=== PATIENT | male | born 1960 | race Caucasian/White ===

== ENCOUNTER 2016-12-02 13:36 | Emergency (ER) | payer MEDICARE ==
[~2016-12-02] VITALS: Ht 175.3 cm; Wt 95.3 kg
[~2016-12-02 13:36] MED LIST: AC325T PO; AMLO5TAB2 PO; ASPI1TAB PO; BACL20TA PO; DCS100C PO; DICL100G18 TOP; DICL100G18 TP; FENT1PAT6 TD; FLUO40CA PO; FNT50TD TD; HYDR-3816 PO; HYDR-690 PO; HYDR-756 PO; HYDR-87 PO; LINA145C PO; LORA1TAB PO; LRZ1T PO; MELO-195 PO; MELO15TA39 PO; METO10TA3 PO; NALO25TA PO; NAPR1TAB25 PO; NF-ESOM40C PO; NORM2DIS3 IV; NYST1POW15 TOP; ONDA4TAB8 PO; ONDA4VIA28 IV; OXC40TCR PO; OXYB5TAB9 PO; OXYC40TA46 PO; OXYC60TA7 PO; PNT40TEC PO; POLY119P5 PO; POLY17PO6 PO; SILD100T PO; SULF1TAB35 PO; TAMS0.4C2 PO; TIZA4CAP PO; TRAM50TA2 PO; TRM50T PO; [UNRECOGNIZED DRUG - CODE] OP; [UNRECOGNIZED DRUG - OTHER] PO
--- OUTSIDE RECORDS SUMMARY | 2016-12-02 13:42 | XMS REPORT ---
Author Author KERRY YATES [facility] [employer] Address Unknown Phone Unavailable Care Team Providers Care Office Services Clerk Name Role Phone KERRY YATES CP Unavailable Allergies No Known Allergies Problems Problem Type Condition Code Onset Dates Condition Status Problem Arthritis M19.90 Active Problem Depression, unspecified depression type F32.9 Active Problem Neck pain M54.2 Active Problem Gastroesophageal reflux disease without esophagitis K21.9 Active Medications No Known Medications Results No Known Results Summary Purpose [employer] Submission
--- OUTSIDE RECORDS SUMMARY | 2016-12-02 13:42 | XMS REPORT ---
Author KERRY Prajapati Organization [employer] Address Unknown Phone Unavailable Care Team Providers Care Truck Trailer Mechanic Name Role Phone KERRY YATES CP Unavailable Allergies No Known Allergies Problems Problem Type Condition Code Onset Dates Condition Status Problem OAB (overactive bladder) N32.81 Active Problem Neck pain M54.2 Active Problem Restless leg syndrome G25.81 Active Problem Gastroesophageal reflux disease without esophagitis K21.9 Active Problem Arthritis M19.90 Active Problem Depression, unspecified depression type F32.9 Active Medications No Known Medications Results No Known Results Summary Purpose [employer] Submission
--- OUTSIDE RECORDS SUMMARY | 2016-12-02 13:43 | XMS REPORT ---
Author KERRY Prajapati Organization [employer] Address Unknown Phone Unavailable Care Team Providers Care Fur Grader Name Role Phone KERRY YATES CP Unavailable [...]
--- OUTSIDE RECORDS SUMMARY | 2016-12-02 13:44 | XMS REPORT ---
Author KERRY Prajapati Organization [employer] Address Unknown Phone Unavailable Care Team Providers Care Log Chain Worker Name Role Phone KERRY YATES CP Unavailable [...]
--- OUTSIDE RECORDS SUMMARY | 2016-12-02 13:44 | XMS REPORT ---
Author Author KERRY YATES [facility] Address [address] [place] [address] Care Team Providers Care Cork Pressing Machine Operator Name Role Phone KERRY YATES Unavailable PROBLEMS Type Condition ICD9-CM Code [id number] Code Onset Dates Condition Status SNOMED Code Problem Restless leg syndrome G25.81 Active 23604669 Problem OAB (overactive bladder) N32.81 Active 607285205 Problem Depression, unspecified depression type F32.9 Active 12587232 Problem Gastroesophageal reflux disease without esophagitis K21.9 Active 813621314 Problem Neck pain M54.2 Active 53222566 Problem Arthritis M19.90 Active 5133490 ALLERGIES Unknown Allergies SOCIAL HISTORY No smoking Hx information available PLAN OF CARE VITAL SIGNS MEDICATIONS Unknown Medications RESULTS No Results PROCEDURES No Known procedures IMMUNIZATIONS No Known Immunizations
--- OUTSIDE RECORDS SUMMARY | 2016-12-02 13:44 | XMS REPORT ---
Author KERRY Prajapati Organization [employer] Address Unknown Phone Unavailable Care Team Providers Care Vp Design Name Role Phone KERRY YATES CP Unavailable [...]
--- OUTSIDE RECORDS SUMMARY | 2016-12-02 13:46 | XMS REPORT ---
Author KERRY Prajapati Organization [employer] Address Unknown Phone Unavailable Care Team Providers Care Pearler Name Role Phone KERRY YATES CP Unavailable [...]
--- OUTSIDE RECORDS SUMMARY | 2016-12-02 13:46 | XMS REPORT | Continuity of Care Document ---
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 HYPERTENSION 05/25/2016 BROOK DONOHUE DIGITAL ARTIST Ot R41.82 ALTERED MENTAL STATUS, UNSPECIFIED 05/25/2016 BROOK DONOHUE APRN Ot Z79.899 OTHER LONG-TERM (CURRENT) DRUG THERAPY Procedures Results Test Result Range Complete blood count (CBC) with automated white blood cell (WBC) differential - 01/07/16 20:25 Blood leukocytes automated count (number/volume) 7.3 10*3/ uL 4.3-11.0 Blood erythrocytes automated count (number/volume) 4.15 10*6 /uL 4.35-5.85 Venous blood hemoglobin measurement (mass/volume) 12.5 g/dL 13.3-17.7 Blood hematocrit (volume fraction) 37 % 40-54 Automated erythrocyte mean corpuscular volume 88 [foz_us] 80-99 Automated erythrocyte mean corpuscular hemoglobin (mass per erythrocyte) 30 pg 25-34 Automated erythrocyte mean corpuscular hemoglobin concentration measurement ( mass/volume) 34 g/dL 32-36 Automated erythrocyte distribution width ratio 13.2 % 10.0-14.5 Automated blood platelet count (count/volume) 234 10*3/uL 130-400 Automated blood platelet mean volume measurement 9.4 [foz_us ] 7.4-10.4 Automated blood neutrophils/100 leukocytes 43 % 42-75 Automated blood lymphocytes/100 leukocytes 47 % 12-44 Blood monocytes/100 leukocytes 7 % 0-12 Automated blood eosinophils/100 leukocytes 3 % 0-10 Automated blood basophils/100 leukocytes 1 % 0-10 Blood neutrophils automated count (number/volume) 3.1 10*3 1.8-7.8 Blood lymphocytes automated count (number/volume) 3.4 10*3 1.0-4.0 Blood monocytes automated count (number/volume) 0.5 10*3 0.0-1.0 Automated eosinophil count 0.2 10*3/uL 0.0-0.3 Automated blood basophil count (count/volume) 0.1 10*3/uL 0.0-0.1 PT panel in platelet poor plasma by coagulation assay - 01/07/16 20:25 Prothrombin time (PT) in platelet poor plasma by coagulation assay 12.6 s 12.2-14.7 INR in platelet poor plasma or blood by coagulation assay 1.0 0.8-1.4 Activated partial thromboplastin time (aPTT) in platelet poor plasma bycoagulation assay - 01/07/16 20:25 Activated partial thromboplastin time (aPTT) in platelet poor plasma bycoagulation assay 29 s 24-35 Comprehensive metabolic panel - 01/07/16 20:25 Serum or plasma sodium measurement (moles/volume) 136 mmol/ L 135-145 Serum or plasma potassium measurement (moles/volume) 4.1 mmol/L 3.6-5.0 Serum or plasma chloride measurement (moles/volume) 102 mmol /L 98-107 Carbon dioxide 29 mmol/L 21-32 Serum or plasma anion gap determination (moles/volume) 5 mmol/L 5-14 Serum or plasma urea nitrogen measurement (mass/volume) 19 mg/dL 7-18 Serum or plasma creatinine measurement (mass/volume) 0.83 mg /dL 0.60-1.30 Serum or plasma urea nitrogen/creatinine mass ratio 23 NRG Serum or plasma creatinine measurement with calculation of estimated glomerular filtration rate > NRG Serum or plasma glucose measurement (mass/volume) 86 mg/dL 70-105 Serum or plasma calcium measurement (mass/volume) 8.5 mg/dL 8.5-10.1 Serum or plasma total bilirubin measurement (mass/volume) 0.3 mg/dL 0.1-1.0 Serum or plasma alkaline phosphatase measurement (enzymatic activity/volume) 32 U/L 40-136 Serum or plasma aspartate aminotransferase measurement (enzymatic activity/ volume) 27 U/L 5-34 Serum or plasma alanine aminotransferase measurement (enzymatic activity/volume ) 37 U/L 0-55 Serum or plasma protein measurement (mass/volume) 6.2 g/dL 6.4-8.2 Serum or plasma albumin measurement (mass/volume) 3.5 g/dL 3.2-4.5 Magnesium - 01/07/16 20:25 Magnesium 2.2 mg/dL 1.8-2.4 Ammonia - 01/07/16 20:25 Ammonia 35 umol/L 11-32 Serum or plasma thyrotropin measurement by detection limit <=0.05 miu/l (units/ volume) - 01/07/16 20:25 Serum or plasma thyrotropin measurement by detection limit <=0.05 miu/l (units/ volume) 1.71 u[iU]/mL 0.35-4.94 Serum or plasma ethanol measurement (mass/volume) - 01/07/16 20:25 Serum or plasma ethanol measurement (mass/volume) < mg/dL <10 Complete urinalysis with reflex to culture - 01/07/16 21:15 Urine color determination YELLOW NRG Urine clarity determination CLEAR NRG Urine pH measurement by test strip 6.5 5 -9 Specific gravity of urine by test strip 1.015 1.016-1.022 Urine protein assay by test strip, semi-quantitative NEGATIVE NEGATIVE Urine glucose detection by automated test strip NEGATIVE NEGATIVE Erythrocytes detection in urine sediment by light microscopy NEGATIVE NEGATIVE Urine ketones detection by automated test strip NEGATIVE NEGATIVE Urine nitrite detection by test strip NEGATIVE NEGATIVE Urine total bilirubin detection by test strip NEGATIVE NEGATIVE Urine urobilinogen measurement by automated test strip (mass/volume) 4 mg/dL NORMAL Urine leukocyte esterase detection by dipstick 1+ NEGATIVE Automated urine sediment erythrocyte count by microscopy (number/high power field) NONE NRG Automated urine sediment leukocyte count by microscopy (number/high power field ) [HPF] NRG Bacteria detection in urine sediment by light microscopy NEGATIVE NRG Crystals detection in urine sediment by light microscopy NONE NRG Casts detection in urine sediment by light microscopy NONE NRG Mucus detection in urine sediment by light microscopy SMALL NRG Complete urinalysis with reflex to culture NO NRG Urine drug screening test - 01/07/16 21:15 Urine acetaminophen detection by screening method NEGATIVE NEGATIVE Urine phencyclidine detection by screening method NEGATIVE NEGATIVE Urine benzodiazepines detection by screening method POSITIVE NEGATIVE Urine cocaine detection NEGATIVE NEGATIVE Urine amphetamines detection by screening method NEGATIVE NEGATIVE Urine methamphetamine detection by screening method NEGATIVE NEGATIVE Urine cannabinoids detection by screening method NEGATIVE NEGATIVE Urine opiates detection by screening method POSITIVE NEGATIVE Urine barbiturates detection NEGATIVE NEGATIVE Screening urine tricyclic antidepressants detection NEGATIVE NEGATIVE Urine methadone detection by screening method NEGATIVE NEGATIVE Complete blood count (CBC) with automated white blood cell (WBC) differential - 01/08/16 04:40 Blood leukocytes automated count (number/volume) 6.6 10*3/ uL 4.3-11.0 Blood erythrocytes automated count (number/volume) 4.09 10*6 /uL 4.35-5.85 Venous blood hemoglobin measurement (mass/volume) 12.5 g/dL 13.3-17.7 Blood hematocrit (volume fraction) 36 % 40-54 Automated erythrocyte mean corpuscular volume 88 [foz_us] 80-99 Automated erythrocyte mean corpuscular hemoglobin (mass per erythrocyte) 31 pg 25-34 Automated erythrocyte mean corpuscular hemoglobin concentration measurement ( mass/volume) 35 g/dL 32-36 Automated erythrocyte distribution width ratio 12.9 % 10.0-14.5 Automated blood platelet count (count/volume) 216 10*3/uL 130-400 Automated blood platelet mean volume measurement 9.6 [foz_us ] 7.4-10.4 Automated blood neutrophils/100 leukocytes 43 % 42-75 Automated blood lymphocytes/100 leukocytes 47 % 12-44 Blood monocytes/100 leukocytes 7 % 0-12 Automated blood eosinophils/100 leukocytes 3 % 0-10 Automated blood basophils/100 leukocytes 1 % 0-10 Blood neutrophils automated count (number/volume) 2.8 10*3 1.8-7.8 Blood lymphocytes automated count (number/volume) 3.1 10*3 1.0-4.0 Blood monocytes automated count (number/volume) 0.5 10*3 0.0-1.0 Automated eosinophil count 0.2 10*3/uL 0.0-0.3 Automated blood basophil count (count/volume) 0.1 10*3/uL 0.0-0.1 Comprehensive metabolic panel - 01/08/16 04:40 Serum or plasma sodium measurement (moles/volume) 140 mmol/ L 135-145 Serum or plasma potassium measurement (moles/volume) 3.8 mmol/L 3.6-5.0 Serum or plasma chloride measurement (moles/volume) 105 mmol /L 98-107 Carbon dioxide 28 mmol/L 21-32 Serum or plasma anion gap determination (moles/volume) 7 mmol/L 5-14 Serum or plasma urea nitrogen measurement (mass/volume) 13 mg/dL 7-18 Serum or plasma creatinine measurement (mass/volume) 0.83 mg /dL 0.60-1.30 Serum or plasma urea nitrogen/creatinine mass ratio 16 NRG Serum or plasma creatinine measurement with calculation of estimated glomerular filtration rate > NRG Serum or plasma glucose measurement (mass/volume) 94 mg/dL 70-105 Serum or plasma calcium measurement (mass/volume) 9.1 mg/dL 8.5-10.1 Serum or plasma total bilirubin measurement (mass/volume) 0.4 mg/dL 0.1-1.0 Serum or plasma alkaline phosphatase measurement (enzymatic activity/volume) 30 U/L 40-136 Serum or plasma aspartate aminotransferase measurement (enzymatic activity/ volume) 30 U/L 5-34 Serum or plasma alanine aminotransferase measurement (enzymatic activity/volume ) 39 U/L 0-55 Serum or plasma protein measurement (mass/volume) 5.9 g/dL 6.4-8.2 Serum or plasma albumin measurement (mass/volume) 3.3 g/dL 3.2-4.5 Urine drug screening test - 01/21/16 09:30 Urine acetaminophen detection by screening method NEGATIVE NEGATIVE Urine phencyclidine detection by screening method NEGATIVE NEGATIVE Urine benzodiazepines detection by screening method POSITIVE NEGATIVE Urine cocaine detection NEGATIVE NEGATIVE Urine amphetamines detection by screening method NEGATIVE NEGATIVE Urine methamphetamine detection by screening method NEGATIVE NEGATIVE Urine cannabinoids detection by screening method NEGATIVE NEGATIVE Urine opiates detection by screening method POSITIVE NEGATIVE Urine barbiturates detection NEGATIVE NEGATIVE Screening urine tricyclic antidepressants detection NEGATIVE NEGATIVE Urine methadone detection by screening method NEGATIVE NEGATIVE Complete urinalysis with reflex to culture - 01/21/16 09:30 Urine color determination FIONA NRG Urine clarity determination CLEAR NRG Urine pH measurement by test strip 6 5- 9 Specific gravity of urine by test strip 1.020 1.016-1.022 Urine protein assay by test strip, semi-quantitative 2+ NEGATIVE Urine glucose detection by automated test strip NEGATIVE NEGATIVE Erythrocytes detection in urine sediment by light microscopy 2+ NEGATIVE Urine ketones detection by automated test strip NEGATIVE NEGATIVE Urine nitrite detection by test strip POSITIVE NEGATIVE Urine total bilirubin detection by test strip 2+ NEGATIVE Urine urobilinogen measurement by automated test strip (mass/volume) 4 mg/dL NORMAL Urine leukocyte esterase detection by dipstick 2+ NEGATIVE Automated urine sediment erythrocyte count by microscopy (number/high power field) NONE NRG Automated urine sediment leukocyte count by microscopy (number/high power field ) [HPF] NRG Bacteria detection in urine sediment by light microscopy FEW NRG Crystals detection in urine sediment by light microscopy PRESENT NRG Casts detection in urine sediment by light microscopy NONE NRG Mucus detection in urine sediment by light microscopy LARGE NRG Complete urinalysis with reflex to culture YES NRG Amorphous sediment detection in urine sediment by light microscopy MOD CLEO URATES NRG Complete blood count (CBC) with automated white blood cell (WBC) differential - 01/21/16 09:30 Blood leukocytes automated count (number/volume) 11.4 10*3/ uL 4.3-11.0 Blood erythrocytes automated count (number/volume) 4.73 10*6 /uL 4.35-5.85 Venous blood hemoglobin measurement (mass/volume) 14.6 g/dL 13.3-17.7 Blood hematocrit (volume fraction) 42 % 40-54 Automated erythrocyte mean corpuscular volume 88 [foz_us] 80-99 Automated erythrocyte mean corpuscular hemoglobin (mass per erythrocyte) 31 pg 25-34 Automated erythrocyte mean corpuscular hemoglobin concentration measurement ( mass/volume) 35 g/dL 32-36 Automated erythrocyte distribution width ratio 12.7 % 10.0-14.5 Automated blood platelet count (count/volume) 270 10*3/uL 130-400 Automated blood platelet mean volume measurement 9.9 [foz_us ] 7.4-10.4 Automated blood neutrophils/100 leukocytes 73 % 42-75 Automated blood lymphocytes/100 leukocytes 17 % 12-44 Blood monocytes/100 leukocytes 8 % 0-12 Automated blood eosinophils/100 leukocytes 2 % 0-10 Automated blood basophils/100 leukocytes 0 % 0-10 Blood neutrophils automated count (number/volume) 8.4 10*3 1.8-7.8 Blood lymphocytes automated count (number/volume) 1.9 10*3 1.0-4.0 Blood monocytes automated count (number/volume) 0.9 10*3 0.0-1.0 Automated eosinophil count 0.2 10*3/uL 0.0-0.3 Automated blood basophil count (count/volume) 0.0 10*3/uL 0.0-0.1 Comprehensive metabolic panel - 01/21/16 09:30 Serum or plasma sodium measurement (moles/volume) 140 mmol/ L 135-145 Serum or plasma potassium measurement (moles/volume) 3.5 mmol/L 3.6-5.0 Serum or plasma chloride measurement (moles/volume) 100 mmol /L 98-107 Carbon dioxide 30 mmol/L 21-32 Serum or plasma anion gap determination (moles/volume) 10 mmol/L 5-14 Serum or plasma urea nitrogen measurement (mass/volume) 11 mg/dL 7-18 Serum or plasma creatinine measurement (mass/volume) 0.82 mg /dL 0.60-1.30 Serum or plasma urea nitrogen/creatinine mass ratio 13 NRG Serum or plasma creatinine measurement with calculation of estimated glomerular filtration rate > NRG Serum or plasma glucose measurement (mass/volume) 97 mg/dL 70-105 Serum or plasma calcium measurement (mass/volume) 9.6 mg/dL 8.5-10.1 Serum or plasma total bilirubin measurement (mass/volume) 0.6 mg/dL 0.1-1.0 Serum or plasma alkaline phosphatase measurement (enzymatic activity/volume) 41 U/L 40-136 Serum or plasma aspartate aminotransferase measurement (enzymatic activity/ volume) 34 U/L 5-34 Serum or plasma alanine aminotransferase measurement (enzymatic activity/volume ) 45 U/L 0-55 Serum or plasma protein measurement (mass/volume) 6.8 g/dL 6.4-8.2 Serum or plasma albumin measurement (mass/volume) 3.7 g/dL 3.2-4.5 Magnesium - 01/21/16 09:30 Magnesium 1.9 mg/dL 1.8-2.4 Serum or plasma salicylates measurement (mass/volume) - 01/21/16 09:30 Serum or plasma salicylates measurement (mass/volume) < mg/ dL 5.0-20.0 Serum or plasma acetaminophen measurement (mass/volume) - 01/21/16 09:30 Serum or plasma acetaminophen measurement (mass/volume) < ug /mL 10-30 Serum or plasma ethanol measurement (mass/volume) - 01/21/16 09:30 Serum or plasma ethanol measurement (mass/volume) < mg/dL <10 Bacterial urine culture - 01/21/16 09:30 Bacterial urine culture [id number] NRG COLONY COUNT 10,000/ML - 100,000/ML NRG Arterial blood gas measurement - 01/21/16 09:35 Blood pCO2 42 mm[Hg] 35-45 Blood pO2 106 mm[Hg] 79-93 Arterial blood bicarbonate measurement (moles/volume) 29 mmol/L 23-27 Arterial blood base excess by calculation 4.6 mmol/L -2.5-2.5 Arterial blood oxygen saturation measurement 98 % 94-100 * Inhaled oxygen flow rate N/A NRG Arterial blood pH measurement with patient temperature correction 7.46 7.37-7.43 Arterial blood carbon dioxide, total measurement (moles/volume) 30.3 mmol/L 21.0-31.0 Body site RIGHT RADIAL NRG Assessment of wrist artery patency prior to arterial puncture POSITIVE NRG Setting of ventilation mode NO NRG Measurement of body temperature 98.3 NRG Blood lactic acid measurement (moles/volume) - 01/21/16 10:30 Blood lactic acid measurement (moles/volume) 1.2 mmol/L 0.5-2.0 Bacterial blood culture - 01/21/16 10:30 Bacterial blood culture NG NRG Bacterial blood culture - 01/21/16 11:39 Bacterial blood culture NG NRG Methicillin resistant Staphylococcus aureus (MRSA) screening culture - 14:26 Methicillin resistant Staphylococcus aureus (MRSA) screening culture NEG NRG Capillary blood glucose measurement by glucometer (mass/volume) - 01/21/16 22: 09 Capillary blood glucose measurement by glucometer (mass/volume) 96 mg/dL 70-110 Complete blood count (CBC) with automated white blood cell (WBC) differential - 01/22/16 03:55 Blood leukocytes automated count (number/volume) 8.7 10*3/ uL 4.3-11.0 Blood erythrocytes automated count (number/volume) 3.90 10*6 /uL 4.35-5.85 Venous blood hemoglobin measurement (mass/volume) 11.9 g/dL 13.3-17.7 Blood hematocrit (volume fraction) 35 % 40-54 Automated erythrocyte mean corpuscular volume 89 [foz_us] 80-99 Automated erythrocyte mean corpuscular hemoglobin (mass per erythrocyte) 31 pg 25-34 Automated erythrocyte mean corpuscular hemoglobin concentration measurement ( mass/volume) 35 g/dL 32-36 Automated erythrocyte distribution width ratio 12.5 % 10.0-14.5 Automated blood platelet count (count/volume) 221 10*3/uL 130-400 Automated blood platelet mean volume measurement 9.8 [foz_us ] 7.4-10.4 Automated blood neutrophils/100 leukocytes 56 % 42-75 Automated blood lymphocytes/100 leukocytes 34 % 12-44 Blood monocytes/100 leukocytes 8 % 0-12 Automated blood eosinophils/100 leukocytes 2 % 0-10 Automated blood basophils/100 leukocytes 1 % 0-10 Blood neutrophils automated count (number/volume) 4.8 10*3 1.8-7.8 Blood lymphocytes automated count (number/volume) 2.9 10*3 1.0-4.0 Blood monocytes automated count (number/volume) 0.7 10*3 0.0-1.0 Automated eosinophil count 0.1 10*3/uL 0.0-0.3 Automated blood basophil count (count/volume) 0.1 10*3/uL 0.0-0.1 Comprehensive metabolic panel - 01/22/16 03:55 Serum or plasma sodium measurement (moles/volume) 140 mmol/ L 135-145 Serum or plasma potassium measurement (moles/volume) 3.5 mmol/L 3.6-5.0 Serum or plasma chloride measurement (moles/volume) 106 mmol /L 98-107 Carbon dioxide 24 mmol/L 21-32 Serum or plasma anion gap determination (moles/volume) 10 mmol/L 5-14 Serum or plasma urea nitrogen measurement (mass/volume) 13 mg/dL 7-18 Serum or plasma creatinine measurement (mass/volume) 0.63 mg /dL 0.60-1.30 Serum or plasma urea nitrogen/creatinine mass ratio 21 NRG Serum or plasma creatinine measurement with calculation of estimated glomerular filtration rate > NRG Serum or plasma glucose measurement (mass/volume) 91 mg/dL 70-105 Serum or plasma calcium measurement (mass/volume) 8.3 mg/dL 8.5-10.1 Serum or plasma total bilirubin measurement (mass/volume) 0.6 mg/dL 0.1-1.0 Serum or plasma alkaline phosphatase measurement (enzymatic activity/volume) 30 U/L 40-136 Serum or plasma aspartate aminotransferase measurement (enzymatic activity/ volume) 30 U/L 5-34 Serum or plasma alanine aminotransferase measurement (enzymatic activity/volume ) 37 U/L 0-55 Serum or plasma protein measurement (mass/volume) 5.3 g/dL 6.4-8.2 Serum or plasma albumin measurement (mass/volume) 2.8 g/dL 3.2-4.5 Complete blood count (CBC) with automated white blood cell (WBC) differential - 04/13/16 20:20 Blood leukocytes automated count (number/volume) 7.6 10*3/ uL 4.3-11.0 Blood erythrocytes automated count (number/volume) 4.38 10*6 /uL 4.35-5.85 Venous blood hemoglobin measurement (mass/volume) 13.5 g/dL 13.3-17.7 Blood hematocrit (volume fraction) 39 % 40-54 Automated erythrocyte mean corpuscular volume 88 [foz_us] 80-99 Automated erythrocyte mean corpuscular hemoglobin (mass per erythrocyte) 31 pg 25-34 Automated erythrocyte mean corpuscular hemoglobin concentration measurement ( mass/volume) 35 g/dL 32-36 Automated erythrocyte distribution width ratio 12.8 % 10.0-14.5 Automated blood platelet count (count/volume) 252 10*3/uL 130-400 Automated blood platelet mean volume measurement 9.3 [foz_us ] 7.4-10.4 Automated blood neutrophils/100 leukocytes 50 % 42-75 Automated blood lymphocytes/100 leukocytes 40 % 12-44 Blood monocytes/100 leukocytes 7 % 0-12 Automated blood eosinophils/100 leukocytes 2 % 0-10 Automated blood basophils/100 leukocytes 1 % 0-10 Blood neutrophils automated count (number/volume) 3.8 10*3 1.8-7.8 Blood lymphocytes automated count (number/volume) 3.1 10*3 1.0-4.0 Blood monocytes automated count (number/volume) 0.5 10*3 0.0-1.0 Automated eosinophil count 0.2 10*3/uL 0.0-0.3 Automated blood basophil count (count/volume) 0.1 10*3/uL 0.0-0.1 PT panel in platelet poor plasma by coagulation assay - 04/13/16 20:20 Prothrombin time (PT) in platelet poor plasma by coagulation assay 12.6 s 12.2-14.7 INR in platelet poor plasma or blood by coagulation assay 1.0 0.8-1.4 Activated partial thromboplastin time (aPTT) in platelet poor plasma bycoagulation assay - 04/13/16 20:20 Activated partial thromboplastin time (aPTT) in platelet poor plasma bycoagulation assay 28 s 24-35 Comprehensive metabolic panel - 04/13/16 20:20 Serum or plasma sodium measurement (moles/volume) 143 mmol/ L 135-145 Serum or plasma potassium measurement (moles/volume) 4.0 mmol/L 3.6-5.0 Serum or plasma chloride measurement (moles/volume) 106 mmol /L 98-107 Carbon dioxide 27 mmol/L 21-32 Serum or plasma anion gap determination (moles/volume) 10 mmol/L 5-14 Serum or plasma urea nitrogen measurement (mass/volume) 14 mg/dL 7-18 Serum or plasma creatinine measurement (mass/volume) 0.79 mg /dL 0.60-1.30 Serum or plasma urea nitrogen/creatinine mass ratio 18 NRG Serum or plasma creatinine measurement with calculation of estimated glomerular filtration rate > NRG Serum or plasma glucose measurement (mass/volume) 85 mg/dL 70-105 Serum or plasma calcium measurement (mass/volume) 8.6 mg/dL 8.5-10.1 Serum or plasma total bilirubin measurement (mass/volume) 0.3 mg/dL 0.1-1.0 Serum or plasma alkaline phosphatase measurement (enzymatic activity/volume) 31 U/L 40-136 Serum or plasma aspartate aminotransferase measurement (enzymatic activity/ volume) 23 U/L 5-34 Serum or plasma alanine aminotransferase measurement (enzymatic activity/volume ) 30 U/L 0-55 Serum or plasma protein measurement (mass/volume) 6.4 g/dL 6.4-8.2 Serum or plasma albumin measurement (mass/volume) 3.6 g/dL 3.2-4.5 Magnesium - 04/13/16 20:20 Magnesium 2.1 mg/dL 1.8-2.4 Serum or plasma amylase measurement (enzymatic activity/volume) - 04/13/16 20: 20 Serum or plasma amylase measurement (enzymatic activity/volume) 61 U/L 25-125 Lipase - 04/13/16 20:20 Lipase 25 U/L 8-78 Serum or plasma thyrotropin measurement by detection limit <=0.05 miu/l (units/ volume) - 04/13/16 20:20 Serum or plasma thyrotropin measurement by detection limit <=0.05 miu/l (units/ volume) 1.14 u[iU]/mL 0.35-4.94 Serum or plasma ethanol measurement (mass/volume) - 04/13/16 20:20 Serum or plasma ethanol measurement (mass/volume) < mg/dL <10 Complete urinalysis with reflex to culture - 04/13/16 20:30 Urine color determination YELLOW NRG Urine clarity determination CLEAR NRG Urine pH measurement by test strip 6 5- 9 Specific gravity of urine by test strip 1.015 1.016-1.022 Urine protein assay by test strip, semi-quantitative NEGATIVE NEGATIVE Urine glucose detection by automated test strip NEGATIVE NEGATIVE Erythrocytes detection in urine sediment by light microscopy NEGATIVE NEGATIVE Urine ketones detection by automated test strip NEGATIVE NEGATIVE Urine nitrite detection by test strip NEGATIVE NEGATIVE Urine total bilirubin detection by test strip NEGATIVE NEGATIVE Urine urobilinogen measurement by automated test strip (mass/volume) 1 mg/dL NORMAL Urine leukocyte esterase detection by dipstick 1+ NEGATIVE Automated urine sediment erythrocyte count by microscopy (number/high power field) NONE NRG Automated urine sediment leukocyte count by microscopy (number/high power field ) [HPF] NRG Bacteria detection in urine sediment by light microscopy NONE NRG Crystals detection in urine sediment by light microscopy NONE NRG Casts detection in urine sediment by light microscopy NONE NRG Mucus detection in urine sediment by light microscopy NEGATIVE NRG Complete urinalysis with reflex to culture NO NRG Urine drug screening test - 04/13/16 20:30 Urine phencyclidine detection by screening method NEGATIVE NEGATIVE Urine benzodiazepines detection by screening method POSITIVE NEGATIVE Urine cocaine detection NEGATIVE NEGATIVE Urine amphetamines detection by screening method NEGATIVE NEGATIVE Urine methamphetamine detection by screening method NEGATIVE NEGATIVE Urine cannabinoids detection by screening method NEGATIVE NEGATIVE Urine opiates detection by screening method POSITIVE NEGATIVE Urine barbiturates detection NEGATIVE NEGATIVE Screening urine tricyclic antidepressants detection NEGATIVE NEGATIVE Urine methadone detection by screening method NEGATIVE NEGATIVE Urine oxycodone detection POSITIVE NEGATIVE Urine propoxyphene detection NEGATIVE NEGATIVE Complete blood count (CBC) with automated white blood cell (WBC) differential - 05/25/16 19:25 Blood leukocytes automated count (number/volume) 7.7 10*3/ uL 4.3-11.0 Blood erythrocytes automated count (number/volume) 4.49 10*6 /uL 4.35-5.85 Venous blood hemoglobin measurement (mass/volume) 13.6 g/dL 13.3-17.7 Blood hematocrit (volume fraction) 40 % 40-54 Automated erythrocyte mean corpuscular volume 90 [foz_us] 80-99 Automated erythrocyte mean corpuscular hemoglobin (mass per erythrocyte) 30 pg 25-34 Automated erythrocyte mean corpuscular hemoglobin concentration measurement ( mass/volume) 34 g/dL 32-36 Automated erythrocyte distribution width ratio 13.8 % 10.0-14.5 Automated blood platelet count (count/volume) 220 10*3/uL 130-400 Automated blood platelet mean volume measurement 9.6 [foz_us ] 7.4-10.4 Automated blood neutrophils/100 leukocytes 61 % 42-75 Automated blood lymphocytes/100 leukocytes 30 % 12-44 Blood monocytes/100 leukocytes 6 % 0-12 Automated blood eosinophils/100 leukocytes 2 % 0-10 Automated blood basophils/100 leukocytes 1 % 0-10 Blood neutrophils automated count (number/volume) 4.7 10*3 1.8-7.8 Blood lymphocytes automated count (number/volume) 2.3 10*3 1.0-4.0 Blood monocytes automated count (number/volume) 0.5 10*3 0.0-1.0 Automated eosinophil count 0.1 10*3/uL 0.0-0.3 Automated blood basophil count (count/volume) 0.1 10*3/uL 0.0-0.1 PT panel in platelet poor plasma by coagulation assay - 05/25/16 19:25 Prothrombin time (PT) in platelet poor plasma by coagulation assay 12.9 s 12.2-14.7 INR in platelet poor plasma or blood by coagulation assay 1.0 0.8-1.4 Comprehensive metabolic panel - 05/25/16 19:25 Serum or plasma sodium measurement (moles/volume) 137 mmol/ L 135-145 Serum or plasma potassium measurement (moles/volume) 4.0 mmol/L 3.6-5.0 Serum or plasma chloride measurement (moles/volume) 104 mmol /L 98-107 Carbon dioxide 26 mmol/L 21-32 Serum or plasma anion gap determination (moles/volume) 7 mmol/L 5-14 Serum or plasma urea nitrogen measurement (mass/volume) 15 mg/dL 7-18 Serum or plasma creatinine measurement (mass/volume) 0.74 mg /dL 0.60-1.30 Serum or plasma urea nitrogen/creatinine mass ratio 20 NRG Serum or plasma creatinine measurement with calculation of estimated glomerular filtration rate > NRG Serum or plasma glucose measurement (mass/volume) 76 mg/dL 70-105 Serum or plasma calcium measurement (mass/volume) 8.6 mg/dL 8.5-10.1 Serum or plasma total bilirubin measurement (mass/volume) 0.4 mg/dL 0.1-1.0 Serum or plasma alkaline phosphatase measurement (enzymatic activity/volume) 34 U/L 40-136 Serum or plasma aspartate aminotransferase measurement (enzymatic activity/ volume) 28 U/L 5-34 Serum or plasma alanine aminotransferase measurement (enzymatic activity/volume ) 31 U/L 0-55 Serum or plasma protein measurement (mass/volume) 6.2 g/dL 6.4-8.2 Serum or plasma albumin measurement (mass/volume) 3.6 g/dL 3.2-4.5 Ammonia - 05/25/16 19:25 Ammonia 35 umol/L 11-32 Serum or plasma salicylates measurement (mass/volume) - 05/25/16 19:25 Serum or plasma salicylates measurement (mass/volume) < mg/ dL 5.0-20.0 Serum or plasma acetaminophen measurement (mass/volume) - 05/25/16 19:25 Serum or plasma acetaminophen measurement (mass/volume) < ug /mL 10-30 Serum or plasma ethanol measurement (mass/volume) - 05/25/16 19:25 Serum or plasma ethanol measurement (mass/volume) < mg/dL <10 Blood lactic acid measurement (moles/volume) - 05/25/16 19:36 Blood lactic acid measurement (moles/volume) 0.8 mmol/L 0.5-2.0 Urine drug screening test - 05/25/16 21:30 Urine phencyclidine detection by screening method NEGATIVE NEGATIVE Urine benzodiazepines detection by screening method POSITIVE NEGATIVE Urine cocaine detection NEGATIVE NEGATIVE Urine amphetamines detection by screening method NEGATIVE NEGATIVE Urine methamphetamine detection by screening method NEGATIVE NEGATIVE Urine cannabinoids detection by screening method NEGATIVE NEGATIVE Urine opiates detection by screening method NEGATIVE NEGATIVE Urine barbiturates detection NEGATIVE NEGATIVE Screening urine tricyclic antidepressants detection NEGATIVE NEGATIVE Urine methadone detection by screening method NEGATIVE NEGATIVE Urine oxycodone detection POSITIVE NEGATIVE Urine propoxyphene detection NEGATIVE NEGATIVE Complete urinalysis with reflex to culture - 05/25/16 21:30 Urine color determination YELLOW NRG Urine clarity determination CLEAR NRG Urine pH measurement by test strip 7 5- 9 Specific gravity of urine by test strip 1.010 1.016-1.022 Urine protein assay by test strip, semi-quantitative NEGATIVE NEGATIVE Urine glucose detection by automated test strip NEGATIVE NEGATIVE Erythrocytes detection in urine sediment by light microscopy NEGATIVE NEGATIVE Urine ketones detection by automated test strip NEGATIVE NEGATIVE Urine nitrite detection by test strip NEGATIVE NEGATIVE Urine total bilirubin detection by test strip NEGATIVE NEGATIVE Urine urobilinogen measurement by automated test strip (mass/volume) 1 mg/dL NORMAL Urine leukocyte esterase detection by dipstick NEGATIVE NEGATIVE Automated urine sediment erythrocyte count by microscopy (number/high power field) NONE NRG Automated urine sediment leukocyte count by microscopy (number/high power field ) NONE NRG Bacteria detection in urine sediment by light microscopy NONE NRG Squamous epithelial cells detection in urine sediment by light microscopy RARE NRG Crystals detection in urine sediment by light microscopy NONE NRG Casts detection in urine sediment by light microscopy NONE NRG Mucus detection in urine sediment by light microscopy NEGATIVE NRG Complete urinalysis with reflex to culture NO NRG Encounters ACCT No. Visit Date/Time Discharge Status Pt. Type Provider Facility Loc./Unit Complaint [id number] 05/25/2016 18:37:00 2015 22:18:00 DIS Emergency BROOK DONOHUE DIGITAL ARTIST [facility] CONFUSED [id number] 04/13/2016 19:58:00 2015 23:09:00 DIS Emergency HAN DO, PAKO K [facility] ER KIDNEY PAIN/DIFF CONTROLLING BLADDER [id number] 01/21/2016 11:08:00 2015 14:40:00 DIS Inpatient ANGEL ROJAS, SCOTT Geller [facility] ICU AMS UTI ADVERSE EFFECTS OF NARCOTICS [id number] 01/07/2016 22:33:00 2015 12:55:00 DIS Inpatient MILAN ROJAS, KERRY Connor [facility] [address] AMS,GENERALIZED WEAKNESS [id number] 10/28/2015 17:42:00 2015 19:45:00 DIS Emergency STEFFI ROJAS, LUIZA Mckeon [facility] [id number] 08/24/2015 08:00:00 2015 17:10:00 DIS Inpatient FLASH ISBELL MD Via [address] ACUTE CVA [id number] 08/10/2015 15:47:00 2015 18:26:00 DIS Emergency DOLORES ROJAS, JOSE LUIS Arguello [facility] [id number] 08/07/2015 17:35:00 2015 10:50:00 DIS Inpatient FLASH ISBELL MD Via [address] [id number] 07/19/2015 14:38:00 2015 17:21:00 DIS Emergency BRANDON CANSECO [facility] [id number] 07/05/2015 11:10:00 2015 10:12:00 DIS Inpatient KRISSY CERVANTES MD Via [facility] [id number] 07/01/2015 18:20:00 2015 11:10:00 DIS Inpatient FLASH ISBELL MD Via [address] [id number] 03/05/2015 14:10:00 2014 17:25:00 DIS Emergency BROOK DONOHUE APRN [facility] [id number] 12/21/2014 09:38:00 2014 12:00:00 DIS Outpatient DAKOTA KIM MD [facility] WOUNDCARE [id number] 11/22/2014 15:00:00 2014 09:30:00 DIS Inpatient FLASH ISBELL MD [facility] SURGICAL UPPER GI BLEED [id number] 11/22/2014 03:40:00 2014 12:10:00 DIS Inpatient FLASH ISBELL MD [facility] ICU [id number] 05/17/2014 13:35:00 2013 14:33:00 DIS Outpatient FLASH ISBELL MD [facility] REHAB [id number] 03/22/2014 10:16:00 2013 23:59:59 CLS Outpatient FLASH ISBELL MD [facility] RAD [id number] 03/07/2014 13:05:00 2013 23:59:59 CLS Outpatient FLASH ISBELL MD [facility] RAD [id number] 12/14/2013 08:20:00 2013 11:18:00 DIS Outpatient ARNIE FIELD MD Via [facility] [id number] 12/13/2013 07:34:00 2013 23:59:59 CLS Outpatient ARNIE FIELD MD [facility] PREOP [id number] 11/30/2013 08:21:00 2013 12:15:00 DIS Outpatient ARNIE FIELD MD Via [facility] [id number] 11/29/2013 07:22:00 2013 23:59:59 CLS Outpatient ARNIE FIELD MD [facility] PREOP [id number] 11/07/2013 07:57:00 2013 23:59:59 CLS Outpatient FLASH ISBELL MD [facility] RAD [id number] 04/18/2013 11:50:00 2012 10:52:00 DIS Outpatient FLASH ISBELL MD [facility] WOUNDC[facility] [id number] 11/18/2012 10:58:00 2012 23:59:59 CLS Outpatient FLASH ISBELL MD [facility] [id number] 03/21/2015 16:28:00 ACT Inpatient FLASH ISBELL MD Via [address] [id number] 02/26/2015 08:58:00 Document Registration [id number] 02/26/2015 08:58:00 Document Registration [id number] 02/26/2015 08:58:00 Document Registration [id number] 07/06/2012 11:19:00 Document Registration [id number] 05/17/2012 10:32:00 Document Registration [id number] 06/16/2011 15:47:00 Document Registration [id number] 05/05/2011 15:19:00 Document Registration [id number] 04/11/2010 07:53:00 Document Registration
--- OUTSIDE RECORDS SUMMARY | 2016-12-02 13:47 | XMS REPORT ---
Author Author KERRY YATES [facility] eClinicalWorks Address Unknown Phone Unavailable Care Team Providers Care Sole Cementer Name Role Phone KERRY YATES CP Unavailable Allergies No Known Allergies Problems Problem Type Condition Code Onset Dates Condition Status Problem Arthritis M19.90 Active Problem Depression, unspecified depression type F32.9 Active Problem Neck pain M54.2 Active Problem Gastroesophageal reflux disease without esophagitis K21.9 Active Medications No Known Medications Results No Known Results Summary Purpose eClinicalWorks Submission
--- OUTSIDE RECORDS SUMMARY | 2016-12-02 13:47 | XMS REPORT ---
Author Author KERRY YATES [facility] eClinicalWorks Address Unknown Phone Unavailable Care Team Providers Care Real Estate Leasing Agent Name Role Phone KERRY YATES CP Unavailable Allergies No Known Allergies Problems Problem Type Condition Code Onset Dates Condition Status Problem Arthritis M19.90 Active Problem Depression, unspecified depression type F32.9 Active Problem Neck pain M54.2 Active Problem Gastroesophageal reflux disease without esophagitis K21.9 Active Medications No Known Medications Results No Known Results Summary Purpose eClinicalWorks Submission
--- OUTSIDE RECORDS SUMMARY | 2016-12-02 13:47 | XMS REPORT ---
Author KERRY Prajapati [facility] eClinicalWorks Address Unknown Phone Unavailable Care Team Providers Care Flux Tube Attendant Name Role Phone KERRY YATES CP Unavailable Allergies, Adverse Reactions, Alerts Substance Reaction Event Type Valium Info Not Available Drug Allergy Problems Problem Type Condition Code Onset Dates Condition Status Assessment Encounter for immunization Z23 Active Assessment OAB (overactive bladder) N32.81 Active Assessment Stopped smoking with greater than 25 pack year history Z87.891 Active Problem OAB (overactive bladder) N32.81 Active Problem Neck pain M54.2 Active Problem Restless leg syndrome G25.81 Active Problem Gastroesophageal reflux disease without esophagitis K21.9 Active Assessment Neck pain M54.2 Active Problem Arthritis M19.90 Active Problem Depression, unspecified depression type F32.9 Active Medications Medication Code System Code Instructions Start Date End Date Status Dosage Baclofen [facility] [address]-54 20 mg Orally 4 times a day 1 tablet with food or milk Mirapex [facility] [address]-40 0.25 MG Orally Once a day, hs Feb 24, 2016 1 tablet Fluoxetine HCl [facility] [address]-56 40 MG Orally Once a day 1 capsule in the morning Oxybutynin Chloride [facility] 11239138531 5 MG TAKE 1 TABLET BY MOUTH THREE TIMES DAILY [place] [facility] [address]-74 7.5-325 MG Orally every 8 hrs Jan 08, 2016 1 tablet as needed Nexium [facility] [address]-77 40 mg Orally Once a day 1 capsule Linzess [facility] 84289625957 145 MCG TAKE 1 CAPSULE BY MOUTH IN THE MORNING Lorazepam [facility] [address]-29 0.5 MG Orally 3 times a day NEEDED Jan 08, 2016 1 tablet Meloxicam [facility] 09336809438 15 MG TAKE 1 TABLET BY MOUTH ONCE DAILY MiraLax [facility] [address]-34 17 gm/dose Orally Once a day 17 grams mixed in 8 oz of water or juice Movantik [facility] [address]-78 25 MG Orally Once a day 1 tablet in the morning OxyContin [facility] [address]-19 60 mg Orally 2 times a day Jan 08, 2016 1 tablet Docusate Sodium [facility] [address]-37 100 MG Orally Once a day NEEDED CONSTIPATION 1 capsule as needed Procedures Procedure Coding System Code Date Office Visit, Est Pt., Level 3 CPT-4 07581 Apr 20, 2016 PPV23 (PNEUMOVAX) CPT-4 38079 Apr 20, 2016 [facility] VISIT ESTABLISHED PATIENT CPT-4 G0467 Apr 20, 2016 SINGLE IMMUNIZATION ADMIN CPT-4 24635 Apr 20, 2016 Vital Signs Date/Time: Apr 20, 2016 Cardiac Monitoring Heart Rate 72 bpm Weight 196 lbs Height 69 in BMI 28.94 Index Blood Pressure Diastolic 70 mmHg Blood Pressure Systolic 100 mmHg Results No Known Results Immunizations Vaccine Administration Date PPV23 (PNEUMOVAX) Apr 20, 2016 Summary Purpose eClinicalWorks Submission
--- OUTSIDE RECORDS SUMMARY | 2016-12-02 13:47 | XMS REPORT ---
Author KERRY Prajapati Organization eClinicalWorks Address Unknown Phone Unavailable Care Team Providers Care Research Scientist Name Role Phone KERRY YATES CP Unavailable [...]
--- OUTSIDE RECORDS SUMMARY | 2016-12-02 13:47 | XMS REPORT ---
Author KERRY Prajapati [facility] eClinicalWorks Address Unknown Phone Unavailable Care Team Providers Care Forestry Extension Specialist Name Role Phone KERRY YATES CP Unavailable [...] Instructions Start Date End Date Status Dosage OxyContin [facility] [address]-18 60 mg Orally 2 times a day Jan 08, 2016 1 tablet Gomer [facility] [address]-35 7.5-325 MG Orally every 8 hrs Jan 08, 2016 1 tablet as needed Results No Known Results Summary Purpose eClinicalWorks Submission
--- OUTSIDE RECORDS SUMMARY | 2016-12-02 13:48 | XMS REPORT ---
Author Author KERRY YATES [facility] Address [address] [place] [address] Care Team Providers Care Agribusiness Professor Name Role Phone KERRY YATES Unavailable PROBLEMS Type Condition ICD9-CM Code [id number] Code Onset Dates Condition Status SNOMED Code Problem Restless leg syndrome G25.81 Active 67620191 Problem OAB (overactive bladder) N32.81 Active 691129948 Problem Depression, unspecified depression type F32.9 Active 04138040 Problem Gastroesophageal reflux disease without esophagitis K21.9 Active 335916066 Problem Neck pain M54.2 Active 31258708 Problem Arthritis M19.90 Active 3383946 ALLERGIES Unknown Allergies SOCIAL HISTORY No smoking Hx information available PLAN OF CARE VITAL SIGNS MEDICATIONS Medication Instructions Dosage Frequency Start Date End Date Duration Status OxyContin 60 mg Orally 2 times a day 1 tablet 12h Jan, Active [place] 7.5-325 MG Orally every 8 hrs 1 tablet as needed 8h Jan, Active RESULTS No Results PROCEDURES No Known procedures IMMUNIZATIONS No Known Immunizations
--- OUTSIDE RECORDS SUMMARY | 2016-12-02 13:48 | XMS REPORT ---
Author KERRY Prajapati Organization eClinicalWorks Address Unknown Phone Unavailable Care Team Providers Care Hair Colorist Name Role Phone KERRY YATES CP Unavailable [...]
--- OUTSIDE RECORDS SUMMARY | 2016-12-02 13:48 | XMS REPORT ---
Author Author KERRY YATES Organization eClinicalWorks Address Unknown Phone Unavailable Care Team Providers Care Cover Machine Operator Name Role Phone KERRY YATES CP Unavailable [...] Instructions Start Date End Date Status Dosage Movantik [facility] [address]-08 25 MG Orally Once a day 1 tablet in the morning Nexium [facility] [address]-71 40 mg Orally Once a day 1 capsule Results No Known Results Summary Purpose eClinicalWorks Submission
--- OUTSIDE RECORDS SUMMARY | 2016-12-02 13:48 | XMS REPORT ---
Author KERRY Prajapati [facility] eClinicalWorks Address Unknown Phone Unavailable Care Team Providers Care Turpentine Distiller Name Role Phone KERRY YATES CP Unavailable Allergies No Known Allergies Problems Problem Type Condition Code Onset Dates Condition Status Problem Arthritis M19.90 Active Problem Depression, unspecified depression type F32.9 Active Problem Neck pain M54.2 Active Problem Gastroesophageal reflux disease without esophagitis K21.9 Active Medications Medication Code System Code Instructions Start Date End Date Status Dosage OxyContin [facility] [address]-32 60 mg Orally 4 times a day 1 tablet as needed Results No Known Results Summary Purpose eClinicalWorks Submission
--- OUTSIDE RECORDS SUMMARY | 2016-12-02 13:48 | XMS REPORT ---
Author Author KERRY YATES [facility] Address [address] [place] [address] Care Team Providers Care Chassis Inspector Name Role Phone KERRY YATES Unavailable PROBLEMS Type Condition ICD9-CM Code [id number] Code Onset Dates Condition Status SNOMED Code Assessment Arthritis M19.90 Feb, Active 8237299 Problem Restless leg syndrome G25.81 Active 91461427 Problem OAB (overactive bladder) N32.81 Active 451745954 Problem Depression, unspecified depression type F32.9 Active 69554643 Problem Gastroesophageal reflux disease without esophagitis K21.9 Active 582776831 Problem Neck pain M54.2 Active 24017751 Problem Arthritis M19.90 Active 1292232 ALLERGIES Substance Reaction Event Type Date Status Valium Unknown Drug Allergy Feb, Active SOCIAL HISTORY No smoking Hx information available PLAN OF CARE VITAL SIGNS Height 69 in 2016-02-24 Weight 185 lbs 2016-02-24 Heart Rate 74 bpm 2016-02-24 Respiratory Rate 20 2016-02-24 BMI 27.32 kg/m2 2016-02-24 Blood pressure systolic 106 mmHg 2016-02-24 Blood pressure diastolic 80 mmHg 2016-02-24 MEDICATIONS Medication Instructions Dosage Frequency Start Date End Date Duration Status [place] 7.5-325 MG Orally every 8 hrs 1 tablet as needed 8h Jan, Active Meloxicam 15 MG TAKE 1 TABLET BY MOUTH ONCE DAILY 30 Active Oxybutynin Chloride 5 MG TAKE 1 TABLET BY MOUTH THREE TIMES DAILY 30 Active Linzess 145 MCG TAKE 1 CAPSULE BY MOUTH IN THE MORNING 30 Active Movantik 25 MG Orally Once a day 1 tablet in the morning 24h Active Fluoxetine HCl 40 MG Orally Once a day 1 capsule in the morning 24h Active OxyContin 60 mg Orally 2 times a day 1 tablet 12h Jan, Active Docusate Sodium 100 MG Orally Once a day NEEDED CONSTIPATION 1 capsule as needed Active MiraLax 17 gm/dose Orally Once a day 17 grams mixed in 8 oz of water or juice 24h Active Lorazepam 0.5 MG Orally 3 times a day NEEDED 1 tablet Jan, Active Mirapex 0.25 MG Orally Once a day, hs 1 tablet Feb, Active Nexium 40 MG Orally Once a day 1 capsule 24h Active Baclofen 20 mg Orally 4 times a day 1 tablet with food or milk 6h Active RESULTS No Results PROCEDURES Procedure Date Ordered Related Diagnosis Body Site [facility] VISIT ESTABLISHED PATIENT Feb 24, 2016 Office Visit, Est Pt., Level 3 Feb 24, 2016 IMMUNIZATIONS No Known Immunizations
--- OUTSIDE RECORDS SUMMARY | 2016-12-02 13:49 | XMS REPORT ---
Author Author KERRY YATES [facility] eClinicalWorks Address Unknown Phone Unavailable Care Team Providers Care Goods Layer Name Role Phone KERRY YATES CP Unavailable Allergies No Known Allergies Problems Problem Type Condition Code Onset Dates Condition Status Problem Neck pain M54.2 Active Problem Arthritis M19.90 Active Problem OAB (overactive bladder) N32.81 Active Problem Depression, unspecified depression type F32.9 Active Problem Gastroesophageal reflux disease without esophagitis K21.9 Active Medications No Known Medications Results No Known Results Summary Purpose eClinicalWorks Submission
--- OUTSIDE RECORDS SUMMARY | 2016-12-02 13:49 | XMS REPORT ---
Author KERRY Prajapati [facility] eClinicalWorks Address Unknown Phone Unavailable Care Team Providers Care Automotive Instructor Name Role Phone KERRY YATES CP Unavailable [...] Instructions Start Date End Date Status Dosage [place] [facility] [address]-90 7.5-325 MG Orally every 8 hrs Jan 08, 2016 1 tablet as needed OxyContin [facility] [address]-39 60 mg Orally 2 times a day Jan 08, 2016 1 tablet Results No Known Results Summary Purpose eClinicalWorks Submission
--- OUTSIDE RECORDS SUMMARY | 2016-12-02 13:49 | XMS REPORT ---
Author KERRY Prajapati Organization eClinicalWorks Address Unknown Phone Unavailable Care Team Providers Care Risk Engineer Name Role Phone KERRY YATES CP Unavailable [...]
--- OUTSIDE RECORDS SUMMARY | 2016-12-02 13:49 | XMS REPORT ---
Author Author KERRY YATES [facility] eClinicalWorks Address Unknown Phone Unavailable Care Team Providers Care Safety Analyst Name Role Phone KERRY YATES CP Unavailable Allergies No Known Allergies Problems Problem Type Condition Code Onset Dates Condition Status Problem Arthritis M19.90 Active Problem Depression, unspecified depression type F32.9 Active Problem Neck pain M54.2 Active Problem Gastroesophageal reflux disease without esophagitis K21.9 Active Medications Medication Code System Code Instructions Start Date End Date Status Dosage [facility] [address]-39 7.5-325 MG Orally every 6 hrs December 17, 2015 1 tablet as needed Results No Known Results Summary Purpose eClinicalWorks Submission
--- OUTSIDE RECORDS SUMMARY | 2016-12-02 13:49 | XMS REPORT ---
Author Author KERRY YATES [facility] eClinicalWorks Address Unknown Phone Unavailable Care Team Providers Care Seo Marketing Specialist Name Role Phone KERRY YATES CP Unavailable Allergies No Known Allergies Problems Problem Type Condition Code Onset Dates Condition Status Problem Arthritis M19.90 Active Problem Depression, unspecified depression type F32.9 Active Problem Neck pain M54.2 Active Problem Gastroesophageal reflux disease without esophagitis K21.9 Active Medications Medication Code System Code Instructions Start Date End Date Status Dosage Hydrocodone-Acetaminophen [facility] [address]-76 7.5-300 MG Orally every 6 hrs 1 tablet as needed Results No Known Results Summary Purpose eClinicalWorks Submission
--- OUTSIDE RECORDS SUMMARY | 2016-12-02 13:49 | XMS REPORT ---
Author KERRY Prajapati [facility] eClinicalWorks Address Unknown Phone Unavailable Care Team Providers Care Resort Host Name Role Phone KERRY YATES CP Unavailable [...] Start Date End Date Status Dosage Baclofen [facility] [address]-99 20 mg Orally 4 times a day 1 tablet with food or milk Results No Known Results Summary Purpose eClinicalWorks Submission
--- OUTSIDE RECORDS SUMMARY | 2016-12-02 13:49 | XMS REPORT ---
Author KERRY Prajapati Organization eClinicalWorks Address Unknown Phone Unavailable Care Team Providers Care Senior Contracts Administrator Name Role Phone KERRY YATES CP Unavailable [...]
--- OUTSIDE RECORDS SUMMARY | 2016-12-02 13:49 | XMS REPORT ---
Author Author KERRY YATES [facility] eClinicalWorks Address Unknown Phone Unavailable Care Team Providers Care Nut Culler Name Role Phone KERRY YATES CP Unavailable Allergies No Known Allergies Problems Problem Type Condition Code Onset Dates Condition Status Problem Neck pain M54.2 Active Problem Arthritis M19.90 Active Problem OAB (overactive bladder) N32.81 Active Problem Depression, unspecified depression type F32.9 Active Problem Gastroesophageal reflux disease without esophagitis K21.9 Active Medications Medication Code System Code Instructions Start Date End Date Status Dosage [place] [facility] [address]-42 7.5-325 MG Orally every 8 hrs Jan 08, 2016 1 tablet as needed OxyContin [facility] [address]-59 60 mg Orally 2 times a day Jan 08, 2016 1 tablet Results No Known Results Summary Purpose eClinicalWorks Submission
--- OUTSIDE RECORDS SUMMARY | 2016-12-02 13:49 | XMS REPORT ---
Author KERRY Prajapati Organization [employer] Address Unknown Phone Unavailable Care Team Providers [employer]ishing [employer] Operator Name Role Phone KERRY YATES CP [...]
[2016-12-02] MEDS ORDERED: LORA0.5T (14:03)
[2016-12-02] MEDS ORDERED: HYDR-3816 (14:03)
[2016-12-02] MEDS ORDERED: NS IV 1000 ML 1,000 ML IV STA (14:25)
[2016-12-02] MEDS ORDERED: HYDROmorphone (DILAUDID) 2 MG/ML VIAL IVP STA ×2 (14:25→16:17)
--- NOTE | 2016-12-02 14:28 | ED Abdominal Pain ---
General Chief Complaint: Abdominal/GI Problems Stated Complaint: UPPER GASTRIC ISSUES Nursing Triage Note: TO ED PER W/C REPORTS HAS HAD EPIGASTRIC PAIN FOR MONTHS WAS LAST SEEN BY DR MILLS ON WEDNESDAY. DRINKING WATER ON ADMIT. Sepsis Screen: No Definite Risk Source of Information: Patient Exam Limitations: No Limitations History of Present Illness Time Seen By Provider: 14:20 Initial Comments Here with report of significant epigastric pain that he reports is actually on the left side that has been going on for a few days and getting worse over the last 24 hours. He states that he has not been unable to keep anything down and is even vomiting the water that he is trying to drink. He is worried about his gallbladder but is pointing to the left side. Also states that his kidneys hurt. States that he has been evaluated by his doctor for urinary tract infection and he had a course of antibiotics for this recently. This is not changed the current pain concerns. He does take chronic pain medicine related to neck fracture after an accident about 7 years ago with related persistent chronic pain and debility. Last normal bowel movement was this morning. Timing/Duration: 1 Week, Getting Worse Severity/Quality: Aching, Sharp Location: LUQ, Flank (left) Radiation: No Radiation Activities at Onset: None Modifying Factors: Worsens With Movement, Improves With Resting Associated Symptoms: No Back Pain, No Chest Pain, No Fever/Chills, Nausea/ Vomiting, No Shortness of Air, No Weakness Allergies and Home Medications Allergies Coded Allergies: diazepam (Verified Allergy, Unknown, PATIENT TAKES LORAZEPAM AT HOME, 07/02) morphine (Verified Allergy, Unknown, TAKES OXYCODONE AT HOME, 07/02/15) Home Medications Baclofen 20 Mg Tablet, 20 MG PO TID PRN for MUSCLE SPASMS for 0 Days Prescribed by: SCOTT KWON on 01/22/16 1407 Docusate Sodium 100 Mg Cap, 100 MG PO DAILY PRN for CONSTIPATION, (Reported) Esomeprazole Magnesium 40 Mg Cap, 40 MG PO HS, (Reported) Fluoxetine HCl 40 Mg Capsule, 40 MG PO DAILY @ 1400, (Reported) Hydrocodone/Acetaminophen 1 Each Tablet, 1 TAB PO Q8H PRN for PAIN, (Reported) Hydrocodone/Acetaminophen 1 Each Tablet, #84 (Reported) Linaclotide 145 Mcg Capsule, 145 MCG PO DAILY, (Reported) Lorazepam 1 Mg Tablet, 0.5 MG PO TID PRN for ANXIETY for 0 Days Prescribed by: SCOTT KWON on 01/22/16 1407 Lorazepam 0.5 Mg Tablet, #84 (Reported) Meloxicam 15 Mg Tablet, 15 MG PO DAILY, (Reported) Naloxegol Oxalate 25 Mg Tablet, 25 MG PO DAILY, (Reported) Oxycodone HCl 60 Mg Tab.er.12h, 60 MG PO BID for 0 Days Prescribed by: SCOTT KWON on 01/22/16 140 Polyethylene Glycol 3350 17 Gm Powd.pack, 17 GM PO DAILY PRN for CONSTIPATION, ( Reported) [Colon Assist] , 1 TAB PO DAILY, (Reported) Review of Systems Constitutional: see HPI, No chills, No fever EENTM: No Symptoms Reported Respiratory: No Symptoms Reported Cardiovascular: No Symptoms Reported Gastrointestinal: See HPI, Abdominal Pain, Denies Constipated, Denies Diarrhea , Nausea, Denies Rectal Bleeding, Vomiting Genitourinary: No Symptoms Reported Musculoskeletal: see HPI, back pain, muscle pain, No muscle twitching, No muscle weakness, neck pain Skin: no symptoms reported All Other Systems Reviewed Negative Unless Noted: Yes Past Udqohqo-Xkdwqf-Bogxkx Hx Patient Social History Alcohol Use: Denies Use Recreational Drug Use: No Smoking Status: Never a Smoker Type Used: Cigarettes Former Smoker/When Quit: Mar 07, 2012 Recent Foreign Travel: No Contact w/Someone Who Travel: No Recent Infectious Disease Expo: No Recent Hopitalizations: Yes Immunizations Up To Date Tetanus Booster (TDap): Unknown PED Vaccines UTD: No Date of Pneumonia Vaccine: Jun 18, 2015 Date of Influenza Vaccine: Apr 07, 2015 Seasonal Allergies Seasonal Allergies: No Surgeries HX Surgeries: Yes (COLONOSCOPIES, CERVICAL SPINE SURGERY) Surgeries: Neurological, Orthopedic Respiratory Hx Respiratory Disorders: No Cardiovascular Hx Cardiac Disorders: Yes Cardiac Disorders: Hypertension Neurological Hx Neurological Disorders: Yes (CERVICAL SPINE FX WITH LEFT SIDE WEAKNESS) Neurological Disorders: Paralysis, Spinal Cord Injury Reproductive System Hx Reproductive Disorders: No Sexually Transmitted Disease: No HIV/AIDS: No Genitourinary Hx Genitourinary Disorders: Yes (NEUROGENIC BLADDER, can be incot but pr reports its rare) Genitourinary Disorders: Neurogenic Bladder Gastrointestinal Hx Gastrointestinal Disorders: Yes Gastrointestinal Disorders: Gastroesophageal Reflux, Chronic Constipation, Diverticulosis Musculoskeletal Hx Musculoskeletal Disorders: Yes Musculoskeletal Disorders: Chronic Back Pain, Fractures, Spasms Endocrine Hx Endocrine Disorders: No HEENT HX ENT Disorders: Yes HEENT Disorders: Tinnitis Loss of Vision: Denies Hearing Impairment: Denies Cancer Hx Cancer: No Psychosocial Hx Psychiatric Problems: Yes Behavioral Health Disorders: Anxiety, Suicide Attempts, Depression Integumentary HX Skin/Integumentary Disorder: No Blood Transfusions Hx Blood Disorders: No Reviewed Nursing Assessment Reviewed/Agree w Nursing PMH: Yes Family Medical History Significant Family History: No Pertinent Family Hx Family Medial History: Cardiovascular disease G8 BROTHER Diabetes mellitus 19 FATHER, , Age:85 19 MOTHER, Onset:Unknown Hypertension 19 MOTHER Seizure disorder G8 BROTHER Physical Exam Vital Signs VS - Last 72 Hours, by Label 12/02/16 13:47 Temp 99.2 Pulse 87 Resp 10 B/P (MAP) 181/97 Pulse Ox 18 O2 Delivery Room Air Capillary Refill : Less Than 3 Seconds General Appearance: WD/WN, no apparent distress HEENT: PERRL/EOMI, pharynx normal Neck: full range of motion, supple Respiratory: lungs clear, normal breath sounds Cardiovascular: regular rate, rhythm, no murmur Gastrointestinal: soft, No guarding, No rebound, tenderness (left-sided) Extremities: non-tender, no pedal edema Neurologic/Psychiatric: alert, oriented x 3 Skin: normal color, warm/dry Progress/Results/Core Measures Results/Orders Lab Results Laboratory Tests Test 12/02/16 14:40 12/02/16 15:26 Range/Units White Blood Count 11.1 H 4.3-11.0 10^3/uL Red Blood Count 4.67 4.35-5.85 10^6/uL Hemoglobin 14.5 13.3-17.7 G/DL Hematocrit 41 40-54 % Mean Corpuscular Volume 88 80-99 FL Mean Corpuscular Hemoglobin 31 25-34 PG Mean Corpuscular Hemoglobin Concent 35 32-36 G/DL Red Cell Distribution Width 13.4 10.0-14.5 % Platelet Count 307 130-400 10^3/uL Mean Platelet Volume 9.2 7.4-10.4 FL Neutrophils (%) (Auto) 78 H 42-75 % Lymphocytes (%) (Auto) 17 12-44 % Monocytes (%) (Auto) 5 0-12 % Eosinophils (%) (Auto) 0 0-10 % Basophils (%) (Auto) 0 0-10 % Neutrophils # (Auto) 8.7 H 1.8-7.8 X 10^3 Lymphocytes # (Auto) 1.9 1.0-4.0 X 10^3 Monocytes # (Auto) 0.5 0.0-1.0 X 10^3 Eosinophils # (Auto) 0.0 0.0-0.3 10^3/uL Basophils # (Auto) 0.0 0.0-0.1 10^3/uL Sodium Level 135 135-145 MMOL/L Potassium Level 4.4 3.6-5.0 MMOL/L Chloride Level 100 98-107 MMOL/L Carbon Dioxide Level 25 21-32 MMOL/L Anion Gap 10 5-14 MMOL/L Blood Urea Nitrogen 12 7-18 MG/DL Creatinine 0.96 0.60-1.30 MG/DL Estimat Glomerular Filtration Rate > 60 BUN/Creatinine Ratio 13 Glucose Level 114 H 70-105 MG/DL Calcium Level 9.8 8.5-10.1 MG/DL Magnesium Level 2.2 1.8-2.4 MG/DL Total Bilirubin 0.7 0.1-1.0 MG/DL Aspartate Amino Transf (AST/SGOT) 32 5-34 U/L Alanine Aminotransferase (ALT/SGPT) 41 0-55 U/L Alkaline Phosphatase 28 L 40-136 U/L Total Protein 8.0 6.4-8.2 GM/DL Albumin 4.0 3.2-4.5 GM/DL Amylase Level 38 25-125 U/L Lipase 8 8-78 U/L Urine Color YELLOW Urine Clarity CLEAR Urine pH 7 5-9 Urine Specific Justice 1.005 L 1.016-1.022 Urine Protein NEGATIVE NEGATIVE Urine Glucose (UA) NEGATIVE NEGATIVE Urine Ketones NEGATIVE NEGATIVE Urine Nitrite NEGATIVE NEGATIVE Urine Bilirubin NEGATIVE NEGATIVE Urine Urobilinogen NORMAL NORMAL MG/DL Urine Leukocyte Esterase NEGATIVE NEGATIVE Urine RBC (Auto) 1+ H NEGATIVE Urine RBC RARE /HPF Urine WBC 0-2 /HPF Urine Crystals NONE /LPF Urine Bacteria NEGATIVE /HPF Urine Casts NONE /LPF Urine Mucus NEGATIVE /LPF Urine Culture Indicated NO Urine Opiates Screen POSITIVE H NEGATIVE Urine Oxycodone Screen POSITIVE H NEGATIVE Urine Methadone Screen NEGATIVE NEGATIVE Urine Propoxyphene Screen NEGATIVE NEGATIVE Urine Barbiturates Screen NEGATIVE NEGATIVE Ur Tricyclic Antidepressants Screen NEGATIVE NEGATIVE Urine Phencyclidine Screen NEGATIVE NEGATIVE Urine Amphetamines Screen NEGATIVE NEGATIVE Urine Methamphetamines Screen NEGATIVE NEGATIVE Urine Benzodiazepines Screen POSITIVE H NEGATIVE Urine Cocaine Screen NEGATIVE NEGATIVE Urine Cannabinoids Screen NEGATIVE NEGATIVE My Orders Orders - LUIZA KAPADIA MD Cbc With Automated Diff (12/02/16 14:25) Comprehensive Metabolic Panel (12/02/16 14:25) Drug Screen Stat (Urine) (12/02/16 14:25) Ua Culture If Indicated (12/02/16 14:25) Ondansetron Injection (Zofran Injectio (12/02/16 14:30) Ns Iv 1000 Ml (Sodium Chloride 0.9%) (12/02/16 14:25) Saline Lock/Iv-Start (12/02/16 14:25) Hydromorphone Injection (Dilaudid Inject (12/02/16 14:25) Amylase (12/02/16 14:25) Lipase (12/02/16 14:25) Magnesium (12/02/16 14:25) Ct Abdomen/Pelvis W (12/02/16 15:12) Iohexol Injection (Omnipaque 350 Mg/Ml 1 (12/02/16 15:30) Ns (Ivpb) (Sodium Chloride 0.9% Ivpb Bag (12/02/16 15:30) Hydromorphone Injection (Dilaudid Inject (12/02/16 16:17) Medications Given in ED Current Medications Medications Dose Ordered Sig/Benigno Route Start Time Stop Time Status Last Admin Dose Admin Iohexol 100 ml ONCE ONCE IV 12/02/16 15:30 12/02/16 15:31 DC 12/02/16 15:32 100 ML Ondansetron HCl 4 mg ONCE ONCE IVP 12/02/16 14:30 12/02/16 14:31 DC 12/02/16 14:45 4 MG Sodium Chloride 100 ml ONCE ONCE IV 12/02/16 15:30 12/02/16 15:31 DC 12/02/16 15:32 80 ML Vital Signs/I&O Vital Sign - Last 12Hours 12/02/16 13:47 Temp 99.2 Pulse 87 Resp 10 B/P (MAP) 181/97 Pulse Ox 18 O2 Delivery Room Air Blood Pressure Mean: 125 Progress Note : Progress Note Seen and evaluated. IV, labs, UA, normal saline 1 L bolus, Zofran 4 mg IV and Dilaudid 1 mg IV ordered. Monitor patient. CT abdomen pelvis ordered. Repeat Dilaudid 1 mg IV for pain that seems to be returning. 1620: No acute findings on CT abdomen and pelvis. Labs and UA are reviewed with no acute significant findings. Discharged home with return precautions. Patient verbalize understanding instructions and agreement with plan. Diagnostic Imaging Diagonstic Imaging: CT Plain Films/CT/US/NM/MRI: abdomen, pelvis Comments NAME: ESCOBAR GARCIA JR [facility] REC#: [id number] PT STATUS: REG ER : 1960 PHYSICIAN: LUIZA KAPADIA MD ADMIT DATE: 12/02/16/ER Draft Date of Exam:12/02/16 CT ABDOMEN/PELVIS W PROCEDURE: CT abdomen and pelvis with contrast. TECHNIQUE: Multiple contiguous axial images were obtained through the abdomen and pelvis after administration of intravenous contrast. INDICATION: Upper abdominal pain. Nausea and vomiting. CONTRAST: Omnipaque 350 was administered intravenously. FINDINGS: The lung bases appear clear. The liver, spleen, adrenal glands, and pancreas appear unremarkable. The gallbladder demonstrates a central fold, presumably a normal variant, similar to 04/13/2016. No calcified gallstone is seen. The kidneys have symmetric enhancement and contrast excretion. There is no hydronephrosis. The urinary bladder appears slightly dilated with no focal lesion seen. The prostate is slightly heterogenous with no enlargement of its outer contour seen. The appendix appears normal. The abdominal aorta is normal in caliber. No periaortic significantly enlarged lymph node is seen. There is a tiny fat-containing umbilical hernia seen. No bowel obstruction. No free fluid or fluid collection in the abdomen or pelvis. The osseous structures demonstrate prominent degenerative changes at L5/S1. There are prominent degenerative sclerotic changes at the sacroiliac joints. IMPRESSION: There is a tiny fat-containing umbilical hernia. No acute process. Dictated on workstation # [id number] Dict: 12/02/16 1544 Trans: 12/02/16 1555 [id number] Interpreted by: WIL SERRA MD Electronically signed by: Departure Impression Impression: Primary Impression: Left upper quadrant pain Disposition: 01 HOME, SELF-CARE Condition: Stable Departure-Patient Inst. Decision time for Depature: 16:21 Referrals: KERRY YATES MD (PCP/Family) Primary Care Physician Patient Instructions: Acute Abdomen (Belly Pain), Adult (DC) Add. Discharge Instructions: All discharge instructions reviewed with patient and/or family. Voiced understanding. Take medications as directed. Follow-up with your Dr. in one to 2 days for recheck and further evaluation. Return for worse pain, fever, vomiting, weakness, recent problems or other concerns as needed. Clear liquid diet for 24 hours and then advance as tolerated. LUIZA KAPADIA MD Dec 02, 2016 14:28
[2016-12-02] MEDS ORDERED: ONDANSETRON 4 MG/2 ML (SDV) Z0FRAN IVP ONE (14:30)
[2016-12-02 14:47] LABS: BASOPHILS % (AUTO) 0 % (0-10); EOSINOPHILS % (AUTO) 0 % (0-10); LYMPHOCYTES # (AUTO) 1.9 X 10^3 (1.0-4.0); LYMPHOCYTES % (AUTO) 17 % (12-44); MEAN CORPUSCULAR HEMOGLOBIN 31 PG (25-34); MEAN CORPUSCULAR HGB CONC 35 G/DL (32-36); MEAN CORPUSCULAR VOLUME 88 FL (80-99); MEAN PLATELET VOLUME 9.2 FL (7.4-10.4); MONOCYTES # (AUTO) 0.5 X 10^3 (0.0-1.0); MONOCYTES % (AUTO) 5 % (0-12); NEUTROPHILS # (AUTO) 8.7 X 10^3 (1.8-7.8); NEUTROPHILS % (AUTO) 78 % (42-75); PLATELET COUNT 307 10^3/uL (130-400); RED BLOOD COUNT 4.67 10^6/uL (4.35-5.85); RED CELL DISTRIBUTION WIDTH 13.4 % (10.0-14.5); WHITE BLOOD COUNT 11.1 10^3/uL (4.3-11.0)
[2016-12-02 15:06] LABS: ALANINE AMINOTRANSFERASE 41 U/L (0-55); AMYLASE 38 U/L (25-125); ANION GAP 10 MMOL/L (5-14); ASPARTATE AMINO TRANSFERASE 32 U/L (5-34); BILIRUBIN,TOTAL 0.7 MG/DL (0.1-1.0); BLOOD UREA NITROGEN 12 MG/DL (7-18); BUN/CREATININE RATIO 13; CALCIUM 9.8 MG/DL (8.5-10.1); CARBON DIOXIDE 25 MMOL/L (21-32); CHLORIDE 100 MMOL/L (98-107); CREATININE SERUM 0.96 MG/DL (0.60-1.30); GFR ESTIMATED > 60; GLUCOSE 114 MG/DL (70-105); LIPASE 8 U/L (8-78); MAGNESIUM 2.2 MG/DL (1.8-2.4); POTASSIUM 4.4 MMOL/L (3.6-5.0); SODIUM 135 MMOL/L (135-145)
[2016-12-02] MEDS ORDERED: NS 100 ML (IVPB) BAG IV ONE (15:30)
[2016-12-02] MEDS ORDERED: IOHEXOL 350 MG/ML 100 ML (OMNIPAQUE 350) VIAL IV ONE (15:30)
[2016-12-02 15:35] LABS: BILIRUBIN,URINE NEGATIVE (NEGATIVE); KETONES,URINE NEGATIVE (NEGATIVE); LEUKOCYTE ESTERASE ,URINE NEGATIVE (NEGATIVE); NITRITE,URINE NEGATIVE (NEGATIVE); PH,URINE 7 (5-9); PROTEIN,URINE NEGATIVE (NEGATIVE); UROBILINOGEN,URINE NORMAL (NORMAL)
[2016-12-02 15:43] LABS: WBC,URINE 0-2 /HPF
--- NOTE | 2016-12-02 15:56 | Diagnostic Imaging Report ---
PROCEDURE: CT abdomen and pelvis with contrast. TECHNIQUE: Multiple contiguous axial images were obtained through the abdomen and pelvis after administration of intravenous contrast. INDICATION: Upper abdominal pain. Nausea and vomiting. CONTRAST: Omnipaque 350 was administered intravenously. FINDINGS: The lung bases appear clear. The liver, spleen, adrenal glands, and pancreas appear unremarkable. The gallbladder demonstrates a central fold, presumably a normal variant, similar to 04/13/2016. No calcified gallstone is seen. The kidneys have symmetric enhancement and contrast excretion. There is no hydronephrosis. The urinary bladder appears slightly dilated with no focal lesion seen. The prostate is slightly heterogenous with no enlargement of its outer contour seen. The appendix appears normal. The abdominal aorta is normal in caliber. No periaortic significantly enlarged lymph node is seen. There is a tiny fat-containing umbilical hernia seen. No bowel obstruction. No free fluid or fluid collection in the abdomen or pelvis. The osseous structures demonstrate prominent degenerative changes at L5/S1. There are prominent degenerative sclerotic changes at the sacroiliac joints. IMPRESSION: There is a tiny fat-containing umbilical hernia. No acute process. Dictated by: Dictated on workstation # [id number]
[2016-12-02] MEDS ORDERED: LORazepam INJ 2 MG/ML (ATIVAN) VIAL IVP ONE (16:45)
[2016-12-02 17:07] VITALS: BP 183/101
== END 2016-12-02 17:07 | disposition home or self-care (01) ==
LOC: EDUNIT# 13:36 → ER 13:38
DX: K92.2 Gastrointestinal hemorrhage, unspecified (principal)
CPT/HCPCS: 36415; 51701; 74177; 80053; 80306; 81000; 82150; 83690; 83735; 85025; 96361; 96374; 96375; 96376

== ENCOUNTER → 2017-10-08 | Outpatient (CLI) | payer MEDICARE ==
[~2017-10-08] MED LIST changes: +HYDR-34; +HYDR-34 PO; -HYDR-3816 PO; +LORA0.5T
--- NOTE | 2017-10-08 11:12 | Diagnostic Imaging Report ---
INDICATION: Incontinence. Grayscale imaging of the urinary bladder was performed. No bladder wall thickening or mass is seen. Bilateral ureteral jets were visualized. IMPRESSION: Unremarkable bladder ultrasound. Dictated by: Dictated on workstation # [id number]
== END ==
LOC: RAD 08:50
PROVIDERS: ATTEND Internal Medicine
DX: N39.490 Overflow incontinence (principal)
CPT/HCPCS: 76857

== ENCOUNTER 2018-02-17 08:50 | Day surgery (SDC) | payer MEDICARE ==
[2018-02-17] VITALS (11 sets, daily range): BP systolic 114–154; BP diastolic 81–100
[~2018-02-17] VITALS: Ht 175.3 cm; Wt 100.7 kg
[~2018-02-17 08:50] MED LIST changes: +HYDR-4227 PO; -HYDR-756 PO; +ONDA2VIACC IV; -ONDA4VIA28 IV
[2018-02-17 09:21] LABS: HEMOGLOBIN 13.8 G/DL (13.3-17.7); MEAN PLATELET VOLUME 9.1 FL (7.4-10.4); RED BLOOD COUNT 4.39 10^6/uL (4.35-5.85); RED CELL DISTRIBUTION WIDTH 13.3 % (10.0-14.5)
[2018-02-17 09:37] LABS: INR 0.9 (0.8-1.4); PROTHROMBIN TIME PATIENT 12.4 SEC (12.2-14.7)
[2018-02-17] MEDS ORDERED: IOHEXOL 300 MG/ML 50 ML (OMNIPAQUE 300) VIAL IV ONE (10:30)
--- NOTE | 2018-02-17 10:57 | Pre-Procedure Progress Note ---
Pre-Procedure Progress Note H&P Reviewed The H&P was reviewed, patient examined and no changes noted. Date H&P Reviewed: Feb 17, 2018 Time H&P Reviewed: 09:00 Pre-Procedure Diagnosis: Neck Pain EBEN MCMAHON MD Feb 17, 2018 10:57
[2018-02-17] MEDS ORDERED: ACETAMINOPHEN 500 MG TAB (TYLENOL) PO PRN (11:00)
--- NOTE | 2018-02-17 13:08 | Diagnostic Imaging Report ---
PROCEDURE: CT cervical spine with contrast. TECHNIQUE: Axial CT cervical spine was performed with the use of intravenous contrast, the images were reconstructed in sagittal and coronal planes. INDICATION: Neck pain. Correlation is made with conventional CT of the cervical spine from 10/28/2015. FINDINGS: Reversal of the normal cervical curvature is similar to prior exam. Postsurgical changes are identified. Posterior instrumented fusion from C5-C7 is seen. Decompression laminectomy from C3-C7 is seen. Degenerative disc disease at all levels with variable disc space narrowing and marginal spurring is again noted. The posterior hardware appears to be intact. No definite fracture or loosening is identified. C2-C3 level demonstrates central canal and neuroforamina to be patent. C3-C4 does show prominent uncovertebral joint degenerative change bilaterally resulting in significant bilateral neuroforaminal stenosis, greatest on the right. Similar findings are seen at C4-C5 level. Central canal is widely patent. Neuroforamina are significantly narrowed due to uncovertebral joint degenerative change. C5-C6 level is unremarkable. C6-C7 level does show some uncovertebral joint degenerative change but central canal and neuroforamina are patent. C7-T1 demonstrates the canal to be patent. There are some endplate osteophytes and uncovertebral joint degenerative change resulting in mild to moderate right neuroforaminal narrowing. IMPRESSION: Extensive cervical spine surgery with posterior instrumented fusion C5-C7 with decompression laminectomy from C3-C7. Central canal is widely patent at all levels. There is multilevel neuroforaminal narrowing due to uncovertebral joint degenerative change, described level by level above. No acute bony abnormality is seen. There is no evidence of hardware fracture or loosening. Dictated by: Dictated on workstation # [id number]
--- NOTE | 2018-02-17 16:59 | Diagnostic Imaging Report ---
INDICATION: Neck pain. Patient presents for cervical myelogram. Patient was brought to the fluoroscopy suite and placed on table in the prone position. The skin over the low back was prepped and draped in the usual sterile fashion. A small amount of 1% lidocaine was utilized for local anesthesia. A 21-gauge needle was advanced into the lumbar thecal sac at the L3-4 level. 10 cc of Omnipaque 300 were injected under fluoroscopic observation. The needle was withdrawn, and hemostasis was obtained. Contrast then was passed into the thoracic and then cervical spinal canal with patient in Trendelenburg position. Images of the cervical spine demonstrate reversal of the normal cervical lordotic curvature. Posterior instrumented fusion is seen at approximately C5 through C7 levels. There is multilevel degenerative disc disease. Cervical spine will be assessed on post-myelography CT. IMPRESSION: Cervical myelogram. Assessment will be performed on post-myelography CT. Dictated by: Dictated on workstation # [id number]
== END 2018-02-17 15:00 | disposition home or self-care (01) ==
LOC: RAD 08:50
PROVIDERS: ATTEND Internal Medicine
DX: M50.00 Cervical disc disorder with myelopathy, unspecified cervical region (principal); M47.13 Other spondylosis with myelopathy, cervicothoracic region; M99.71 Connective tissue and disc stenosis of intervertebral foramina of cervical region; Z98.890 Other specified postprocedural states; Z98.1 Arthrodesis status
CPT/HCPCS: 36415; 62284; 72126; 72240; 77002; 85027; 85610; 85730

== ENCOUNTER 2018-08-08 15:25 | Emergency (ER) | payer MEDICARE ==
[~2018-08-08] VITALS: Ht 177.8 cm; Wt 90.7 kg
[2018-08-08 16:01] LABS: BASOPHILS % (AUTO) 0 % (0-10); EOSINOPHILS # (AUTO) 0.1 10^3/uL (0.0-0.3); EOSINOPHILS % (AUTO) 2 % (0-10); HEMATOCRIT 36 % (40-54); LYMPHOCYTES # (AUTO) 2.2 X 10^3 (1.0-4.0); LYMPHOCYTES % (AUTO) 26 % (12-44); MEAN CORPUSCULAR HEMOGLOBIN 31 PG (25-34); MEAN CORPUSCULAR HGB CONC 34 G/DL (32-36); MEAN CORPUSCULAR VOLUME 93 FL (80-99); MONOCYTES # (AUTO) 0.6 X 10^3 (0.0-1.0); MONOCYTES % (AUTO) 7 % (0-12); NEUTROPHILS # (AUTO) 5.6 X 10^3 (1.8-7.8); NEUTROPHILS % (AUTO) 66 % (42-75); PLATELET COUNT 285 10^3/uL (130-400); RED CELL DISTRIBUTION WIDTH 13.3 % (10.0-14.5); WHITE BLOOD COUNT 8.5 10^3/uL (4.3-11.0)
[2018-08-08 16:22] LABS: ALANINE AMINOTRANSFERASE 36 U/L (0-55); ALBUMIN 3.9 GM/DL (3.2-4.5); ALKALINE PHOSPHATASE 36 U/L (40-136); BILIRUBIN,TOTAL 0.3 MG/DL (0.1-1.0); BUN/CREATININE RATIO 17; CALCIUM 9.3 MG/DL (8.5-10.1); CARBON DIOXIDE 30 MMOL/L (21-32); CHLORIDE 101 MMOL/L (98-107); CREATININE SERUM 0.84 MG/DL (0.60-1.30); GFR ESTIMATED > 60; GLUCOSE 104 MG/DL (70-105); LIPASE 23 U/L (8-78); POTASSIUM 4.1 MMOL/L (3.6-5.0); SODIUM 139 MMOL/L (135-145); TOTAL PROTEIN 7.1 GM/DL (6.4-8.2)
--- NOTE | 2018-08-08 16:30 | Diagnostic Imaging Report ---
INDICATION: Leg swelling. PA and lateral chest obtained at 4:23 p.m. FINDINGS: Heart and mediastinal silhouette are normal in appearance. The lungs appear clear. There is no edema, pleural fluid, or pneumothorax. IMPRESSION: No acute process in the chest. Dictated by: Dictated on workstation # [id number]
[2018-08-08 17:10] LABS: BILIRUBIN,URINE NEGATIVE (NEGATIVE); CLARITY,URINE CLEAR; COLOR,URINE YELLOW; GLUCOSE, URINE (UA) NEGATIVE (NEGATIVE); KETONES,URINE NEGATIVE (NEGATIVE); LEUKOCYTE ESTERASE ,URINE NEGATIVE (NEGATIVE); NITRITE,URINE NEGATIVE (NEGATIVE); PH,URINE 8 (5-9); PROTEIN,URINE NEGATIVE (NEGATIVE); UROBILINOGEN,URINE NORMAL (NORMAL)
[2018-08-08 17:18] LABS: BACTERIA,URINE NEGATIVE /HPF; SQUAMOUS EPITHELIAL CELL,UR RARE /HPF
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
[2018-08-08 18:04] VITALS: BP 110/77
== END 2018-08-08 18:06 | disposition home or self-care (01) ==
LOC: EDUNIT# 15:25 → ER 15:27
DX: R60.0 Localized edema (principal); I10 Essential (primary) hypertension; K21.9 Gastro-esophageal reflux disease without esophagitis; F41.9 Anxiety disorder, unspecified; F32.9 Major depressive disorder, single episode, unspecified; Z91.5 Personal history of self-harm; Z87.19 Personal history of other diseases of the digestive system; Z82.49 Family history of ischemic heart disease and other diseases of the circulatory system; Z88.5 Allergy status to narcotic agent; Z88.8 Allergy status to other drugs, medicaments and biological substances; Z87.891 Personal history of nicotine dependence; Z98.890 Other specified postprocedural states
CPT/HCPCS: 36415; 71046; 80053; 81000; 83690; 83880; 85025; 85379

== ENCOUNTER → 2019-06-27 | Outpatient (CLI) | payer MEDICARE ==
[~2019-06-27] MED LIST changes: +OXYB5TAB13 PO; -OXYB5TAB9 PO
--- NOTE | 2019-06-27 09:59 | Diagnostic Imaging Report ---
PROCEDURE: MRI lumbar spine. TECHNIQUE: Multiplanar, multisequence MRI of the lumbar spine was performed without contrast. INDICATION: Increasing back pain. COMPARISON: CT lumbar spine without contrast 08/25/2012. FINDINGS: There are five lumbar-type vertebral bodies. Normal alignment. Vertebral body heights are preserved. Modic type I and III degenerative endplate changes at L5-S1. Bone marrow signal is otherwise unremarkable. No abnormal signal in the conus which terminates at L1. Normal morphology of the cauda equina. The visualized paravertebral soft tissues are unremarkable. L1-L2: Normal. L2-L3: Facet arthropathy contributes to moderate left and mild right neural foraminal narrowing. No spinal canal or lateral recess narrowing. L3-L4: Facet arthropathy contributes to mild left neural foraminal narrowing. No spinal canal or neural foraminal narrowing. L4-L5: Small posterior disc osteophyte complex results in no substantial spinal canal or lateral recess narrowing. There is mild bilateral neural foraminal narrowing. L5-S1: Posterior disc osteophyte complex results in mild bilateral lateral recess narrowing. No spinal canal narrowing. There is [id number]-sibrcr bilateral neural foraminal narrowing. IMPRESSION: 1. Spondylotic changes result in no high-grade spinal canal or lateral recess narrowing. 2. Scattered neural foraminal narrowing is greatest at L5-S1 where it is sxywqhpi-[id number]-gsmzzr, progressed since 08/26/2015. 3. No acute osseous findings. Dictated by: Dictated on workstation # [id number]
--- NOTE | 2019-06-27 09:59 | Diagnostic Imaging Report ---
EXAM: MRI THORACIC SPINE W/O CON INDICATION: Increasing back pain. COMPARISON: MRI lumbar spine also performed today. FINDINGS: Normal alignment. Vertebral body heights preserved. Mild to moderate diffuse degenerative endplate changes. Bone marrow signal is otherwise unremarkable. Small disc protrusions at T4-T5 and T3-T4 result in no spinal canal narrowing. No neural foraminal narrowing. No abnormal signal in the thoracic spinal cord. The visualized paravertebral soft tissues are unremarkable. IMPRESSION: Mild/moderate spondylotic changes result in no neural impingement. No acute findings. No abnormal signal in the thoracic spinal cord. Dictated by: Dictated on workstation # [id number]
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
== END ==
LOC: RAD 08:03
PROVIDERS: ATTEND Internal Medicine
DX: M50.00 Cervical disc disorder with myelopathy, unspecified cervical region (principal); G95.89 Other specified diseases of spinal cord; M48.02 Spinal stenosis, cervical region; M25.78 Osteophyte, vertebrae; M47.12 Other spondylosis with myelopathy, cervical region; M47.26 Other spondylosis with radiculopathy, lumbar region; M48.07 Spinal stenosis, lumbosacral region; M47.814 Spondylosis without myelopathy or radiculopathy, thoracic region; Z98.1 Arthrodesis status; Z87.81 Personal history of (healed) traumatic fracture
CPT/HCPCS: 72141; 72146; 72148

== ENCOUNTER → 2020-09-20 | Outpatient (CLI) | payer MEDICARE, MEDICAID ==
[~2020-09-20] MED LIST changes: -METO10TA3 PO; +MTC10T PO
--- NOTE | 2020-09-20 16:31 | Diagnostic Imaging Report ---
EXAMINATION: Cervical spine MRI from 09/20/2020. TECHNIQUE: Multiplanar, multisequence MR imaging of the cervical spine was performed without contrast. INDICATION: Prior surgery 10 years ago. Cervical pain with pain extending into the hands. COMPARISON: 06/27/2019. FINDINGS: There is reversal of the normal curvature, similar to previous examination. The cervicomedullary junction is unremarkable. Within the visualized cord, there is a persistent T2 hyperintensity posterior to the C6-C7 level consistent with myelomalacia. Remaining visualized cord demonstrates normal signal intensity. There is grade 1 anterolisthesis of C2 on C3, stable. Grade 1 retrolisthesis at C7 on T1 is unchanged. Remaining alignment is preserved. There are no compression deformities. C2-C3: There is a right paracentral disc protrusion which extends into the right neuroforamen with secondary moderate central stenosis and right-sided neuroforaminal narrowing. Mild narrowing of the left neuroforamen is also seen. The degree of central stenosis has worsened since previous imaging. C3-C4: There is a right paracentral bulging disc with secondary mild central narrowing. There is narrowing of bilateral neuroforamina, right greater than left. C4-C5: Right paracentral spur disc complex is noted, similar to previous with narrowing of the neuroforamina; unchanged. There is no central stenosis with posterior laminectomies noted. C5-C6: There is no significant central stenosis with bilateral laminectomies present. There is bilateral neuroforaminal stenosis which is stable. C6-C7: There is no significant central stenosis. Neuroforamina are obscured by postoperative changes of posterior fusion which extends from the C5 through the C7 levels. C7-T1: There is no significant central stenosis. Bilateral neuroforaminal narrowing, stable. Visualized prevertebral soft tissues are unremarkable. IMPRESSION: 1. Multilevel postoperative and degenerative changes, as above, for the most part stable other than increased central stenosis at C2-C3 when compared to prior imaging. 2. Stable myelomalacia at the C6-C7 level. Dictated by: Dictated on workstation # [id number]
== END ==
LOC: RAD 13:15
PROVIDERS: ATTEND Internal Medicine
DX: M50.01 Cervical disc disorder with myelopathy, high cervical region (principal); M50.021 Cervical disc disorder at C4-C5 level with myelopathy; M48.02 Spinal stenosis, cervical region; M43.12 Spondylolisthesis, cervical region; G95.89 Other specified diseases of spinal cord
CPT/HCPCS: 72141

== ENCOUNTER 2020-11-19 18:41 | Emergency (ER) | payer MEDICAID, MEDICARE ==
[2020-11-19 18:55] VITALS: BP 0/0
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
== END 2020-11-19 19:04 | disposition home or self-care (01) ==
LOC: EDUNIT# 18:41 → ER 18:43
DX: G89.29 Other chronic pain (principal); M54.5 Low back pain; I10 Essential (primary) hypertension; K21.9 Gastro-esophageal reflux disease without esophagitis; F32.9 Major depressive disorder, single episode, unspecified; F41.9 Anxiety disorder, unspecified; Z87.891 Personal history of nicotine dependence; Z79.891 Long term (current) use of opiate analgesic; Z79.899 Other long term (current) drug therapy
CPT/HCPCS: 99281

== ENCOUNTER → 2021-02-19 | Outpatient (CLI) | payer MEDICARE, MEDICAID ==
--- NOTE | 2021-02-19 16:00 | Diagnostic Imaging Report ---
PROCEDURE: US Venous Lower Ext Jordy. INDICATION: Bilateral leg/calf pain. TECHNIQUE: Multiple real-time grayscale images were obtained over the lower extremities in various projections, bilaterally. Additional duplex Doppler and color Doppler images were also obtained. CORRELATION STUDY: None FINDINGS: Some limitations on this study owing to patient's involuntary spasms. Color and grayscale sonographic images demonstrate no intraluminal defect within the visualized portion of the common femoral, superficial femoral and/or popliteal veins to suggest thrombus formation. These vessels demonstrate normal response to compression and augmentation. No soft tissue fluid collection. IMPRESSION: 1. Negative for deep venous thrombosis of either leg. Dictated by: Dictated on workstation # [id number]
== END ==
LOC: RAD 15:15
PROVIDERS: ATTEND Internal Medicine
DX: M79.662 Pain in left lower leg (principal); M79.661 Pain in right lower leg
CPT/HCPCS: 93970

== ENCOUNTER → 2021-03-28 | Outpatient (CLI) | payer MEDICARE, MEDICAID ==
--- NOTE | 2021-03-28 15:11 | Diagnostic Imaging Report ---
INDICATION: Cervical spine surgery. TIME OF EXAM: 1:10 p.m. FINDINGS: Extensive postsurgical changes of the cervical spine are noted. There are vertical stabilization rods and posterior element screws extending from approximately C2 into the upper thoracic spine. There is also anterior plate and screws transfixing from C2 to approximately C6. Alignment is normal. Hardware appears intact. Prevertebral tissues are normal. IMPRESSION: Postop changes of anterior and posterior cervical fusion. No definite complicating features are identified. Dictated by: Dictated on workstation # [id number]
== END ==
LOC: RAD 12:46
PROVIDERS: ATTEND Neurological Surgery
DX: Z98.1 Arthrodesis status (principal)
CPT/HCPCS: 72040

== ENCOUNTER → 2021-05-13 | Outpatient (CLI) | payer MEDICARE, MEDICAID | LOC: WOUNDCARE 09:03 | PROVIDERS: ATTEND Family Medicine | DX: L89.303 Pressure ulcer of unspecified buttock, stage 3 (principal); M50.00 Cervical disc disorder with myelopathy, unspecified cervical region; E66.01 Morbid (severe) obesity due to excess calories; M62.3 Immobility syndrome (paraplegic) | CPT/HCPCS: A6197; A6212; G0463; 99213 ==

== ENCOUNTER → 2021-11-19 | Outpatient (CLI) | payer MEDICARE, MEDICAID ==
[~2021-11-19] MED LIST changes: +HYDR-4085 PO; -HYDR-87 PO
--- NOTE | 2021-11-19 10:58 | Diagnostic Imaging Report ---
INDICATION: Screening for abdominal aortic aneurysm. Proximal abdominal aorta measures 2.0 cm AP x 1.9 cm transverse. Midabdominal aorta measures 2.27 cm AP x 1.2 cm transverse. Distal abdominal aorta measures 1.3 cm AP x 1.9 cm transverse. The right iliac measures 0.7 x 0.8 cm. Left iliac measures 1.1 x 0.6 cm. IMPRESSION: No evidence of abdominal aortic aneurysm. Dictated by: Dictated on workstation # [id number]
== END ==
LOC: RAD 10:00
PROVIDERS: ATTEND Internal Medicine
DX: Z13.6 Encounter for screening for cardiovascular disorders (principal)
CPT/HCPCS: 76775

== ENCOUNTER 2022-01-28 15:52 | Emergency (ER) | payer MEDICARE, MEDICAID ==
[~2022-01-28] VITALS: Ht 175.2 cm; Wt 113.0 kg
[~2022-01-28 15:52] MED LIST changes: -NORM2DIS3 IV; +NORM2DIS8 IV
[2022-01-28] MEDS ORDERED: FURO40TA4 PO (16:08)
--- NOTE | 2022-01-28 16:26 | ED Lower Extremity ---
General Chief Complaint: Lower Extremity Stated Complaint: L LEG SWOLLEN/RED Source: patient Exam Limitations: no limitations History of Present Illness Date Seen by Provider: Jan 28, 2022 Time Seen by Provider: 16:26 Allergies and Home Medications Allergies Coded Allergies: diazepam (Verified Allergy, Unknown, PATIENT TAKES LORAZEPAM AT HOME, 01/28/22) morphine (Verified Allergy, Unknown, TAKES OXYCODONE AT HOME, 01/28/22) Patient Home Medication List Baclofen (Baclofen) 20 Mg Tablet, 20 MG PO TID PRN for MUSCLE SPASMS Prescribed by: SCOTT KWON on 01/22/16 140 Docusate Sodium (Colace Capsule) 100 Mg Cap, 100 MG PO DAILY PRN for CONSTIPATION, (Reported) Entered as Reported by: JUS SALAS on 05/28/11 0915 Esomeprazole Magnesium (Nexium) 40 Mg Cap, 40 MG PO HS, (Reported) Entered as Reported by: MARK ATKINS on 03/21/15 1634 Fluoxetine HCl (Fluoxetine HCl) 40 Mg Capsule, 40 MG PO DAILY @ 1400, (Reported) Entered as Reported by: MARK ATKINS on 03/21/15 1634 Furosemide (Furosemide) 40 Mg Tablet, 40 MG PO BID, (Reported) Entered as Reported by: VERÓNICA CHRISTOPHER on 01/28/22 1608 Last Action: New Order Hydrocodone Bit/Acetaminophen (Lortab 7.5 Mg Tablet) 1 Each Tablet, (Reported) Entered as Reported by: LISSY FINLEY on 12/02/16 1403 Hydrocodone/Acetaminophen ([place] 7.5-325 Tablet) 1 Each Tablet, 1 TAB PO Q8H PRN for PAIN, (Reported) Entered as Reported by: MARK ATKINS on 01/21/16 1307 Linaclotide (Linzess) 145 Mcg Capsule, 145 MCG PO DAILY, (Reported) Entered as Reported by: HAYDEN BOUDREAUX on 10/28/15 1841 Lorazepam (Lorazepam) 1 Mg Tablet, 0.5 MG PO TID PRN for ANXIETY Prescribed by: SCOTT KWON on 01/22/16 1407 Lorazepam (Lorazepam) 0.5 Mg Tablet, (Reported) Entered as Reported by: LISSY FINLEY on 12/02/16 1403 Meloxicam (Meloxicam) 15 Mg Tablet, 15 MG PO DAILY, (Reported) Entered as Reported by: MARK ATKINS on 03/21/15 1634 Naloxegol Oxalate (Movantik) 25 Mg Tablet, 25 MG PO DAILY, (Reported) Entered as Reported by: LIANNA KRUSE on 08/08/15 1020 Oxycodone HCl (Oxycontin) 60 Mg Tab.er.12h, 60 MG PO BID Prescribed by: SCOTT KWON on 01/22/16 1407 Polyethylene Glycol 3350 (Miralax) 17 Gm Powd.pack, 17 GM PO DAILY PRN for CONSTIPATION, (Reported) Entered as Reported by: LIANNA KRUSE on 08/08/15 1016 [Colon Assist] , 1 TAB PO DAILY, (Reported) Entered as Reported by: MARK ATKINS on 07/02/15 1042 Past Dbvjlqq-Ngscmn-Qwiemp Hx Immunizations Up To Date Tetanus Booster (TDap): Unknown PED Vaccines UTD: No Seasonal Allergies Seasonal Allergies: No Past Medical History Surgeries: Yes (COLONOSCOPIES, CERVICAL SPINE SURGERY) Neurological, Orthopedic Respiratory: No Currently Using CPAP: No Currently Using BIPAP: No Cardiac: Yes Hypertension Neurological: Yes (CERVICAL SPINE FX WITH LEFT SIDE WEAKNESS) Paralysis, Spinal Cord Injury Reproductive Disorders: No Sexually Transmitted Disease: No HIV/AIDS: No Neurogenic Bladder Gastrointestinal: Yes Gastroesophageal Reflux, Chronic Constipation, Diverticulosis Musculoskeletal: Yes Chronic Back Pain, Fractures, Spasms Endocrine: No Tinnitis Loss of Vision: Denies Hearing Impairment: Denies Cancer: No Psychosocial: Yes Anxiety, Suicide Attempts, Depression Integumentary: No Blood Disorders: No Family Medical History Cardiovascular disease G8 BROTHER Diabetes mellitus 19 FATHER, , Age:85 19 MOTHER, Onset:Unknown Hypertension 19 MOTHER Seizure disorder G8 BROTHER No Pertinent Family Hx Physical Exam Vital Signs Vital Signs - First Documented 01/28/22 15:53 Temp 36.9 Pulse 60 Resp 20 B/P (MAP) 120/56 (77) Pulse Ox 97 O2 Delivery Room Air Capillary Refill : Height, Weight, BMI Height: 5'10.00" Weight: 200lbs. 0.0oz. 90.069681am; 25.6 BMI Method:Estimated Progress/Results/Core Measures Results/Orders Lab Results Laboratory Tests Test 01/28/22 16:20 01/28/22 16:32 Range/Units White Blood Count 10.9 4.3-11.0 10^3/uL Red Blood Count 4.05 L 4.30-5.52 10^6/uL Hemoglobin 11.8 L 13.3-17.7 g/dL Hematocrit 36 L 40-54 % Mean Corpuscular Volume 89 80-99 fL Mean Corpuscular Hemoglobin 29 25-34 pg Mean Corpuscular Hemoglobin Concent 33 32-36 g/dL Red Cell Distribution Width 14.7 H 10.0-14.5 % Platelet Count 263 130-400 10^3/uL Mean Platelet Volume 9.4 9.0-12.2 fL Immature Granulocyte % (Auto) 0 % Neutrophils (%) (Auto) 57 42-75 % Lymphocytes (%) (Auto) 35 12-44 % Monocytes (%) (Auto) 6 0-12 % Eosinophils (%) (Auto) 2 0-10 % Basophils (%) (Auto) 1 0-10 % Neutrophils # (Auto) 6.2 1.8-7.8 10^3/uL Lymphocytes # (Auto) 3.8 1.0-4.0 10^3/uL Monocytes # (Auto) 0.7 0.0-1.0 10^3/uL Eosinophils # (Auto) 0.2 0.0-0.3 10^3/uL Basophils # (Auto) 0.1 0.0-0.1 10^3/uL Immature Granulocyte # (Auto) 0.0 0.0-0.1 10^3/uL D-Dimer 0.56 H 0.00-0.49 UG/ML Sodium Level 141 135-145 MMOL/L Potassium Level 3.7 3.6-5.0 MMOL/L Chloride Level 100 98-107 MMOL/L Carbon Dioxide Level 34 H 21-32 MMOL/L Anion Gap 7 5-14 MMOL/L Blood Urea Nitrogen 11 7-18 MG/DL Creatinine 0.78 0.60-1.30 MG/DL Estimat Glomerular Filtration Rate 102 BUN/Creatinine Ratio 14 Glucose Level 81 70-105 MG/DL Calcium Level 9.1 8.5-10.1 MG/DL Corrected Calcium 9.3 8.5-10.1 MG/DL Total Bilirubin 0.3 0.1-1.0 MG/DL Aspartate Amino Transf (AST/SGOT) 22 5-34 U/L Alanine Aminotransferase (ALT/SGPT) 22 0-55 U/L Alkaline Phosphatase 50 40-136 U/L C-Reactive Protein High Sensitivity 0.97 H 0.00-0.50 MG/DL Total Protein 7.4 6.4-8.2 GM/DL Albumin 3.7 3.2-4.5 GM/DL Serum Alcohol < 10 <10 MG/DL Urine Color YELLOW Urine Clarity CLEAR Urine pH 7.0 5-9 Urine Specific [place] 1.010 L 1.016-1.022 Urine Protein NEGATIVE NEGATIVE Urine Glucose (UA) NEGATIVE NEGATIVE Urine Ketones NEGATIVE NEGATIVE Urine Nitrite NEGATIVE NEGATIVE Urine Bilirubin NEGATIVE NEGATIVE Urine Urobilinogen 0.2 < = 1.0 MG/DL Urine Leukocyte Esterase NEGATIVE NEGATIVE Urine RBC (Auto) TRACE-I H NEGATIVE Urine RBC NONE /HPF Urine WBC NONE /HPF Urine Crystals NONE /LPF Urine Bacteria NEGATIVE /HPF Urine Casts NONE /LPF Urine Mucus NEGATIVE /LPF Urine Culture Indicated NO My Orders Orders - IRVING GEORGE MEDICAL COORDINATOR PESTICIDE USE Ed Iv/Invasive Line Start (01/28/22 16:16) Cbc With Automated Diff (01/28/22 16:16) Comprehensive Metabolic Panel (01/28/22 16:16) Fibrin Degradation Products (01/28/22 16:16) Hs C Reactive Protein (01/28/22 16:16) Alcohol (01/28/22 16:24) Ua Culture If Indicated (01/28/22 16:24) Chest 1 View, Ap/Pa Only (01/28/22 16:24) Cephalexin Capsule (Keflex Capsule) (01/28/22 17:15) Vital Signs/I&O 01/28/22 15:53 Temp 36.9 Pulse 60 Resp 20 B/P (MAP) 120/56 (77) Pulse Ox 97 O2 Delivery Room Air Departure Impression Primary Impression: Cellulitis Additional Impression: Edema Disposition: 01 HOME, SELF-CARE Condition: Stable Departure-Patient Inst. Decision time for Depature: 17:13 Referrals: KERRY YATES MD (PCP/Family) Primary Care Physician Patient Instructions: Cellulitis (Skin Infection), Adult (DC) Add. Discharge Instructions: Plan: 1. Take antibiotics as directed and complete full course even if you begin to feel better. 2. Have close follow up with Dr. Yates next week. Continue your Lasix as previously directed. 3. Return to ER for any new, concerning, or worsening symptoms. All discharge instructions reviewed with patient and/or family. Voiced understanding. Scripts Cephalexin (Cephalexin) 500 Mg Tablet 500 MG PO QID for 7 Days, #28 TAB 0 Refills Prov: IRVING GEORGE APRN 01/28/22 IRVING GEORGE APRN Jan 28, 2022 16:26
[2022-01-28 16:27] LABS: BASOPHILS # (AUTO) 0.1 10^3/uL (0.0-0.1); BASOPHILS % (AUTO) 1 % (0-10); EOSINOPHILS # (AUTO) 0.2 10^3/uL (0.0-0.3); EOSINOPHILS % (AUTO) 2 % (0-10); HEMATOCRIT 36 % (40-54); HEMOGLOBIN 11.8 g/dL (13.3-17.7); LYMPHOCYTES # (AUTO) 3.8 10^3/uL (1.0-4.0); LYMPHOCYTES % (AUTO) 35 % (12-44); MEAN CORPUSCULAR HEMOGLOBIN 29 pg (25-34); MEAN CORPUSCULAR HGB CONC 33 g/dL (32-36); MEAN CORPUSCULAR VOLUME 89 fL (80-99); MEAN PLATELET VOLUME 9.4 fL (9.0-12.2); MONOCYTES # (AUTO) 0.7 10^3/uL (0.0-1.0); MONOCYTES % (AUTO) 6 % (0-12); NEUTROPHILS # (AUTO) 6.2 10^3/uL (1.8-7.8); NEUTROPHILS % (AUTO) 57 % (42-75); PLATELET COUNT 263 10^3/uL (130-400); WHITE BLOOD COUNT 10.9 10^3/uL (4.3-11.0)
[2022-01-28 16:34] LABS: BILIRUBIN,URINE NEGATIVE (NEGATIVE); CLARITY,URINE CLEAR; COLOR,URINE YELLOW; GLUCOSE, URINE (UA) NEGATIVE (NEGATIVE); KETONES,URINE NEGATIVE (NEGATIVE); LEUKOCYTE ESTERASE ,URINE NEGATIVE (NEGATIVE); NITRITE,URINE NEGATIVE (NEGATIVE); PROTEIN,URINE NEGATIVE (NEGATIVE)
--- NOTE | 2022-01-28 16:37 | Diagnostic Imaging Report ---
Indication: Left leg swelling Portable chest 4:25 PM Heart size and pulmonary vascularity are normal. Lungs are clear. There are no effusions or pneumothoraces. IMPRESSION: No acute abnormalities in the chest Dictated by: Dictated on workstation # [id number]
[2022-01-28 16:41] LABS: ALBUMIN 3.7 GM/DL (3.2-4.5); POTASSIUM 3.7 MMOL/L (3.6-5.0)
[2022-01-28 16:42] LABS: CALCIUM 9.1 MG/DL (8.5-10.1)
[2022-01-28 16:44] LABS: TOTAL PROTEIN 7.4 GM/DL (6.4-8.2)
[2022-01-28 16:45] LABS: BILIRUBIN,TOTAL 0.3 MG/DL (0.1-1.0)
[2022-01-28 16:48] LABS: CREATININE SERUM 0.78 MG/DL (0.60-1.30)
[2022-01-28 16:49] LABS: BACTERIA,URINE NEGATIVE /HPF
[2022-01-28] MEDS ORDERED: CEPH500T PO (17:15)
[2022-01-28] MEDS ORDERED: CEPHALEXIN 250 MG (KEFLEX) CAP PO ONE (17:15)
[2022-01-28 17:58] VITALS: BP 132/80
== END 2022-01-28 17:58 | disposition home or self-care (01) ==
LOC: EDUNIT# 15:52 → ER 15:54
DX: L03.116 Cellulitis of left lower limb (principal); Z28.311 Partially vaccinated for COVID-19
CPT/HCPCS: 71045; 80053; 81000; 85025; 85379; 86141; 99284; G0480; 36415; 80320

== ENCOUNTER 2022-01-30 12:38 | Emergency (ER) | payer MEDICARE, MEDICAID ==
[~2022-01-30] VITALS: Ht 175.3 cm; Wt 108.9 kg
[~2022-01-30 12:38] MED LIST changes: +CEPH500T PO; +FURO40TA4 PO
--- NOTE | 2022-01-30 14:35 | ED Integumentary General ---
General Chief Complaint: Skin/Wound Problems Stated Complaint: CELLULITIS, URINATING BLOOD Source: patient Exam Limitations: no limitations (BROOK DONOHUE APRN) History of Present Illness Date Seen by Provider: Jan 30, 2022 Time Seen by Provider: 14:34 Initial Comments To ER with bilateral lower extremity swelling and redness. He was seen here 2 days ago for the same and given a prescription for Keflex but he did not start that until this morning. Denies fevers or chills. Timing/Duration: constant Severity: moderate Location: extremities Possible Cause: no cause identified Associated Symptoms: denies symptoms (BROOK DONOHUE APRN) Allergies and Home Medications Allergies Coded Allergies: diazepam (Verified Allergy, Unknown, PATIENT TAKES LORAZEPAM AT HOME, 01/28/22) morphine (Verified Allergy, Unknown, TAKES OXYCODONE AT HOME, 01/28/22) Patient Home Medication List Home Medication List Reviewed: Yes (BROOK DONOHUE APRN) Baclofen (Baclofen) 20 Mg Tablet, 20 MG PO TID PRN for MUSCLE SPASMS Prescribed by: SCOTT KWON on 01/22/16 1407 Cephalexin (Cephalexin) 500 Mg Tablet, 500 MG PO QID Prescribed by: IRVING GEORGE on 01/28/22 1715 Docusate Sodium (Colace Capsule) 100 Mg Cap, 100 MG PO DAILY PRN for CONSTIPATION, (Reported) Entered as Reported by: JUS SALAS on 05/28/11 0915 Esomeprazole Magnesium (Nexium) 40 Mg Cap, 40 MG PO HS, (Reported) Entered as Reported by: MARK ATKINS on 03/21/15 1634 Fluoxetine HCl (Fluoxetine HCl) 40 Mg Capsule, 40 MG PO DAILY @ 1400, (Reported) Entered as Reported by: MARK ATKINS on 03/21/15 1634 Furosemide (Furosemide) 40 Mg Tablet, 40 MG PO BID, (Reported) Entered as Reported by: VERÓNICA CHRISTOPHER on 01/28/22 1608 Hydrocodone Bit/Acetaminophen (Lortab 7.5 Mg Tablet) 1 Each Tablet, (Reported) Entered as Reported by: LISSY FINLEY on 12/02/16 1403 Hydrocodone/Acetaminophen ([place] 7.5-325 Tablet) 1 Each Tablet, 1 TAB PO Q8H PRN for PAIN, (Reported) Entered as Reported by: MARK ATKINS on 01/21/16 1307 Linaclotide (Linzess) 145 Mcg Capsule, 145 MCG PO DAILY, (Reported) Entered as Reported by: HAYDEN BOUDREAUX on 10/28/15 1841 Lorazepam (Lorazepam) 1 Mg Tablet, 0.5 MG PO TID PRN for ANXIETY Prescribed by: SCOTT KWON on 01/22/16 1407 Lorazepam (Lorazepam) 0.5 Mg Tablet, (Reported) Entered as Reported by: LISSY FINLEY on 12/02/16 1403 Meloxicam (Meloxicam) 15 Mg Tablet, 15 MG PO DAILY, (Reported) Entered as Reported by: MARK ATKINS on 03/21/15 1634 Naloxegol Oxalate (Movantik) 25 Mg Tablet, 25 MG PO DAILY, (Reported) Entered as Reported by: LIANNA KRUSE on 08/08/15 1020 Oxycodone HCl (Oxycontin) 60 Mg Tab.er.12h, 60 MG PO BID Prescribed by: SCOTT KWON on 01/22/16 1407 Polyethylene Glycol 3350 (Miralax) 17 Gm Powd.pack, 17 GM PO DAILY PRN for CONSTIPATION, (Reported) Entered as Reported by: LIANNA KRUSE on 08/08/15 1016 [Colon Assist] , 1 TAB PO DAILY, (Reported) Entered as Reported by: MARK ATKINS on 07/02/15 1042 Review of Systems Review of Systems Constitutional: see HPI EENTM: see HPI Respiratory: no symptoms reported Cardiovascular: no symptoms reported, see HPI Genitourinary: no symptoms reported Musculoskeletal: no symptoms reported Skin: see HPI Psychiatric/Neurological: No Symptoms Reported Endocrine: No Symptoms Reported (BROOK DONOHUE APRN) Past Hmmelhj-Oizrzu-Pxactp Hx Immunizations Up To Date Tetanus Booster (TDap): Unknown PED Vaccines UTD: No First/Initial COVID19 Vaccinat: ONE DOSE (BROOK DONOHUE APRN) Seasonal Allergies Seasonal Allergies: No (BROOK DONOHUE APRN) Past Medical History Surgery/Hospitalization HX: ANXIETY, PAIN, NECK SURGERY Surgeries: Yes (COLONOSCOPIES, CERVICAL SPINE SURGERY) Neurological, Orthopedic Respiratory: No Currently Using CPAP: No Currently Using BIPAP: No Cardiac: Yes Hypertension Neurological: Yes (CERVICAL SPINE FX WITH LEFT SIDE WEAKNESS) Paralysis, Spinal Cord Injury Reproductive Disorders: No Sexually Transmitted Disease: No HIV/AIDS: No Neurogenic Bladder Gastrointestinal: Yes Gastroesophageal Reflux, Chronic Constipation, Diverticulosis Musculoskeletal: Yes Chronic Back Pain, Fractures, Spasms Endocrine: No Tinnitis Loss of Vision: Denies Hearing Impairment: Denies Cancer: No Psychosocial: Yes Anxiety, Suicide Attempts, Depression Integumentary: No Blood Disorders: No (BROOK DONOHUE APRN) Family Medical History Cardiovascular disease G8 BROTHER Diabetes mellitus 19 FATHER, , Age:85 19 MOTHER, Onset:Unknown Hypertension 19 MOTHER Seizure disorder G8 BROTHER No Pertinent Family Hx (BROOK DONOHUE APRN) Physical Exam Vital Signs Vital Signs - First Documented 01/30/22 13:53 Temp 37.0 Pulse 51 Resp 18 B/P (MAP) 116/72 (87) Pulse Ox 97 O2 Delivery Room Air (JOSE LUIS BERNAL MD) Vital Signs Capillary Refill : (BROOK DONOHUE APRN) General Appearance: WD/WN, no apparent distress Neck: non-tender, full range of motion Cardiovascular: regular rate, rhythm, no murmur Respiratory: no respiratory distress, no accessory muscle use Gastrointestinal: normal bowel sounds, non tender Extremities: normal range of motion, non-tender, other (3+ pitting edema up to the knees bilaterally. Bilateral lower extremity erythema left greater than right. 1.5 cm bulla to the posterior left calf.) Neurologic/Psychiatric: alert, normal mood/affect, oriented x 3 Skin: normal color, warm/dry (BROOK DONOHUE APRN) Progress/Results/Core Measures Results/Orders Lab Results Laboratory Tests Test 01/30/22 14:45 01/30/22 14:58 Range/Units White Blood Count 13.0 H 4.3-11.0 10^3/uL Red Blood Count 3.95 L 4.30-5.52 10^6/uL Hemoglobin 11.6 L 13.3-17.7 g/dL Hematocrit 35 L 40-54 % Mean Corpuscular Volume 88 80-99 fL Mean Corpuscular Hemoglobin 29 25-34 pg Mean Corpuscular Hemoglobin Concent 33 32-36 g/dL Red Cell Distribution Width 14.5 10.0-14.5 % Platelet Count 232 130-400 10^3/uL Mean Platelet Volume 9.6 9.0-12.2 fL Immature Granulocyte % (Auto) 0 % Neutrophils (%) (Auto) 63 42-75 % Lymphocytes (%) (Auto) 29 12-44 % Monocytes (%) (Auto) 6 0-12 % Eosinophils (%) (Auto) 1 0-10 % Basophils (%) (Auto) 1 0-10 % Neutrophils # (Auto) 8.2 H 1.8-7.8 10^3/uL Lymphocytes # (Auto) 3.8 1.0-4.0 10^3/uL Monocytes # (Auto) 0.7 0.0-1.0 10^3/uL Eosinophils # (Auto) 0.2 0.0-0.3 10^3/uL Basophils # (Auto) 0.1 0.0-0.1 10^3/uL Immature Granulocyte # (Auto) 0.1 0.0-0.1 10^3/uL Sodium Level 135 135-145 MMOL/L Potassium Level 4.1 3.6-5.0 MMOL/L Chloride Level 99 98-107 MMOL/L Carbon Dioxide Level 30 21-32 MMOL/L Anion Gap 6 5-14 MMOL/L Blood Urea Nitrogen 11 7-18 MG/DL Creatinine 0.74 0.60-1.30 MG/DL Estimat Glomerular Filtration Rate 104 BUN/Creatinine Ratio 15 Glucose Level 85 70-105 MG/DL Calcium Level 8.9 8.5-10.1 MG/DL Corrected Calcium 9.3 8.5-10.1 MG/DL Total Bilirubin 0.5 0.1-1.0 MG/DL Aspartate Amino Transf (AST/SGOT) 21 5-34 U/L Alanine Aminotransferase (ALT/SGPT) 21 0-55 U/L Alkaline Phosphatase 46 40-136 U/L B-Type Natriuretic Peptide 42.1 <100.0 PG/ML Total Protein 7.0 6.4-8.2 GM/DL Albumin 3.5 3.2-4.5 GM/DL Serum Alcohol < 10 <10 MG/DL Urine Color YELLOW Urine Clarity CLEAR Urine pH 6.5 5-9 Urine Specific [place] 1.010 L 1.016-1.022 Urine Protein NEGATIVE NEGATIVE Urine Glucose (UA) NEGATIVE NEGATIVE Urine Ketones NEGATIVE NEGATIVE Urine Nitrite NEGATIVE NEGATIVE Urine Bilirubin NEGATIVE NEGATIVE Urine Urobilinogen 0.2 < = 1.0 MG/DL Urine Leukocyte Esterase NEGATIVE NEGATIVE Urine RBC (Auto) 1+ H NEGATIVE Urine RBC 10-25 H /HPF Urine WBC 0-2 /HPF Urine Squamous Epithelial Cells 2-5 /HPF Urine Crystals NONE /LPF Urine Bacteria TRACE /HPF Urine Casts NONE /LPF Urine Mucus NEGATIVE /LPF Urine Culture Indicated NO (JOSE LUIS BERNAL MD) My Orders Orders - JOSE LUIS BERNAL MD Ua Culture If Indicated (01/30/22 12:48) (JOSE LUIS BERNAL MD) Medications Given in ED Current Medications Medications Dose Ordered Sig/Benigno Route Start Time Stop Time Status Last Admin Dose Admin Ceftriaxone Sodium/Dextrose 50 ml @ 100 mls/hr ONCE ONCE IV 01/30/22 15:15 01/30/22 15:44 DC 01/30/22 15:47 100 MLS/HR (JOSE LUIS BERNAL MD) Vital Signs/I&O 01/30/22 01/30/22 13:53 16:15 Temp 37.0 Pulse 51 54 Resp 18 20 B/P (MAP) 116/72 (87) 101/58 Pulse Ox 97 98 O2 Delivery Room Air Room Air (JOSE LUIS BERNAL MD) Departure Communication (Admissions) NAME: ESCOBAR GARC[facility] REC#: [id number] PT STATUS: REG ER : 1960 PHYSICIAN: BROOK DONOHUE APRN ADMIT DATE: 01/30/22/ER Signed Date of Exam:01/30/22 CT ABD/PELVIS WO(KIDNEY STONE) PROCEDURE: CT urinary tract, rule out kidney stone. TECHNIQUE: Multiple contiguous axial images were obtained through the abdomen and pelvis without the use of intravenous contrast. Auto Exposure Controls were utilized during the CT exam to meet ALARA standards for radiation dose reduction. INDICATION: Left-sided abdominal pain. Hematuria. COMPARISON: 12/02/2016. FINDINGS: The heart is prominent. The lung bases are clear. No evidence of renal calculi or hydronephrosis. No perinephric fat stranding. The urinary bladder is unremarkable. No bladder calculi. The liver, spleen, pancreas, and adrenal glands have a normal noncontrast CT appearance. The gallbladder is unremarkable. There is no pathologically enlarged mesenteric or retroperitoneal adenopathy. The bowel loops are nondilated. The appendix is visualized in the right lower quadrant and has a normal appearance. There is no free fluid or free air. No acute osseous abnormalities. There is calcified aortic and iliac atherosclerotic plaque without aneurysm. Ureters and bladder are normal. There is no free air, loculated collection, or adenopathy in the pelvis. IMPRESSION: 1. No evidence of renal calculi or hydronephrosis. 2. No bowel obstruction. No free fluid or free air. Normal appendix. Dictated by: Dictated on workstation # [id number] Dict: 01/30/22 1535 Trans: 01/30/22 1544 [facility] [id number] Interpreted by: LAMONT CASTAÑEDA DO Electronically signed by: LAMONT CASTAÑEDA DO 01/30/22 1544 1519-I been in the room twice now each time without to awaken the patient to examine him or discuss with him the treatment plan. He did request something for his chronic pain from the nurse. I think we can safely hold off on this until we discharge. (BROOK DONOHUE APRN) Impression Primary Impression: Cellulitis Disposition: 01 HOME, SELF-CARE Condition: Stable Departure-Patient Inst. Decision time for Depature: 15:08 (BROOK DONOHUE APRN) Referrals: KERRY YATES MD (PCP/Family) Primary Care Physician Patient Instructions: Cellulitis (Skin Infection), Adult (DC) Add. Discharge Instructions: take your antibiotics All discharge instructions reviewed with patient and/or family. Voiced understanding. ATTENDING PHYSICIAN NOTE: I was physically present as attending physician in the emergency department during the care of this patient, but I was not directly involved in the decision making or delivery of care for this patient. (JOSE LUIS BERNAL MD) BROOK DONOHUE APRN Jan 30, 2022 14:35 JOSE LUIS BERNAL MD Jan 30, 2022 20:45
[2022-01-30 14:57] LABS: BASOPHILS # (AUTO) 0.1 10^3/uL (0.0-0.1); BASOPHILS % (AUTO) 1 % (0-10); EOSINOPHILS # (AUTO) 0.2 10^3/uL (0.0-0.3); EOSINOPHILS % (AUTO) 1 % (0-10); HEMATOCRIT 35 % (40-54); HEMOGLOBIN 11.6 g/dL (13.3-17.7); LYMPHOCYTES # (AUTO) 3.8 10^3/uL (1.0-4.0); LYMPHOCYTES % (AUTO) 29 % (12-44); MEAN CORPUSCULAR HEMOGLOBIN 29 pg (25-34); MEAN CORPUSCULAR HGB CONC 33 g/dL (32-36); MEAN CORPUSCULAR VOLUME 88 fL (80-99); MEAN PLATELET VOLUME 9.6 fL (9.0-12.2); MONOCYTES # (AUTO) 0.7 10^3/uL (0.0-1.0); MONOCYTES % (AUTO) 6 % (0-12); NEUTROPHILS # (AUTO) 8.2 10^3/uL (1.8-7.8); NEUTROPHILS % (AUTO) 63 % (42-75); PLATELET COUNT 232 10^3/uL (130-400)
[2022-01-30 15:03] LABS: BILIRUBIN,URINE NEGATIVE (NEGATIVE); CLARITY,URINE CLEAR; COLOR,URINE YELLOW; GLUCOSE, URINE (UA) NEGATIVE (NEGATIVE); KETONES,URINE NEGATIVE (NEGATIVE); LEUKOCYTE ESTERASE ,URINE NEGATIVE (NEGATIVE); NITRITE,URINE NEGATIVE (NEGATIVE); PH,URINE 6.5 (5-9); PROTEIN,URINE NEGATIVE (NEGATIVE)
[2022-01-30 15:06] LABS: ALBUMIN 3.5 GM/DL (3.2-4.5); POTASSIUM 4.1 MMOL/L (3.6-5.0)
[2022-01-30 15:08] LABS: CALCIUM 8.9 MG/DL (8.5-10.1)
[2022-01-30 15:10] LABS: BILIRUBIN,TOTAL 0.5 MG/DL (0.1-1.0)
[2022-01-30 15:11] LABS: BACTERIA,URINE TRACE /HPF; WBC,URINE 0-2 /HPF
[2022-01-30 15:12] LABS: CREATININE SERUM 0.74 MG/DL (0.60-1.30)
[2022-01-30] MEDS ORDERED: cefTRIAXone 1 GM PRE-MIX 50 ML IV ONE (15:15)
--- NOTE | 2022-01-30 15:40 | Diagnostic Imaging Report ---
PROCEDURE: CT urinary tract, rule out kidney stone. TECHNIQUE: Multiple contiguous axial images were obtained through the abdomen and pelvis without the use of intravenous contrast. Auto Exposure Controls were utilized during the CT exam to meet ALARA standards for radiation dose reduction. INDICATION: Left-sided abdominal pain. Hematuria. COMPARISON: 12/02/2016. FINDINGS: The heart is prominent. The lung bases are clear. No evidence of renal calculi or hydronephrosis. No perinephric fat stranding. The urinary bladder is unremarkable. No bladder calculi. The liver, spleen, pancreas, and adrenal glands have a normal noncontrast CT appearance. The gallbladder is unremarkable. There is no pathologically enlarged mesenteric or retroperitoneal adenopathy. The bowel loops are nondilated. The appendix is visualized in the right lower quadrant and has a normal appearance. There is no free fluid or free air. No acute osseous abnormalities. There is calcified aortic and iliac atherosclerotic plaque without aneurysm. Ureters and bladder are normal. There is no free air, loculated collection, or adenopathy in the pelvis. IMPRESSION: 1. No evidence of renal calculi or hydronephrosis. 2. No bowel obstruction. No free fluid or free air. Normal appendix. Dictated by: Dictated on workstation # [id number]
[2022-01-30 16:15] VITALS: BP 101/58
== END 2022-01-30 16:15 | disposition home or self-care (01) ==
LOC: EDUNIT# 12:38 → ER 12:39
DX: L03.116 Cellulitis of left lower limb (principal); L03.115 Cellulitis of right lower limb; Z28.311 Partially vaccinated for COVID-19
CPT/HCPCS: 74176; 80053; 81000; 83880; 85025; 99282; G0480; 36415; 80320

== ENCOUNTER 2022-02-20 20:15 | Emergency (ER) | payer MEDICARE, MEDICAID ==
[~2022-02-20] VITALS: Ht 175.2 cm; Wt 110.3 kg
[2022-02-20 21:18] LABS: BASOPHILS # (AUTO) 0.1 10^3/uL (0.0-0.1); BASOPHILS % (AUTO) 1 % (0-10); EOSINOPHILS # (AUTO) 0.2 10^3/uL (0.0-0.3); EOSINOPHILS % (AUTO) 2 % (0-10); HEMATOCRIT 34 % (40-54); HEMOGLOBIN 11.3 g/dL (13.3-17.7); LYMPHOCYTES % (AUTO) 31 % (12-44); MEAN CORPUSCULAR HEMOGLOBIN 29 pg (25-34); MEAN CORPUSCULAR HGB CONC 33 g/dL (32-36); MEAN CORPUSCULAR VOLUME 89 fL (80-99); MEAN PLATELET VOLUME 9.5 fL (9.0-12.2); MONOCYTES # (AUTO) 0.7 10^3/uL (0.0-1.0); MONOCYTES % (AUTO) 6 % (0-12); NEUTROPHILS % (AUTO) 61 % (42-75); PLATELET COUNT 240 10^3/uL (130-400)
[2022-02-20 21:31] LABS: POTASSIUM 2.8 MMOL/L (3.6-5.0)
[2022-02-20 21:32] LABS: CALCIUM 8.8 MG/DL (8.5-10.1)
[2022-02-20 21:37] LABS: CREATININE SERUM 0.84 MG/DL (0.60-1.30)
[2022-02-20] MEDS ORDERED: NS (IVPB) 250 ML IV ONE (21:45)
[2022-02-20] MEDS ORDERED: KCL 10 MEQ TAB (MICRO K) PO ONE (21:45)
[2022-02-20] MEDS ORDERED: POTASSIUM CL 10MEQ/50ML IVPB 50 ML IV ONE (21:45)
--- NOTE | 2022-02-20 22:12 | ED General ---
General Chief Complaint: Lower Extremity Stated Complaint: BI LAT LEG SWELLING Nursing Triage Note: Pt arrival to ER with complaint of bilateral leg swelling. Pt states that Dr. Bennett called him and told him he needed to go to the ER to have his legs checked for clots, since he didn't go to his scheduled ultrasound. Pt also states that we have to give him a shot of fentanyl before he is going home. Source of Information: Patient Exam Limitations: No Limitations (JOSE LUIS BERNAL MD) History of Present Illness Date Seen by Provider: Feb 20, 2022 Time Seen by Provider: 20:47 Initial Comments This 61-year-old gentleman presents to the emergency room with chief complaint o f bilateral lower extremity edema, left greater than right. He has been treated for cellulitis with reportedly 2 rounds of antibiotics. He states he just finished a round of Keflex. He has erythema and blistering particularly of the left leg and it is uncomfortable. He was seen in the emergency room for the same problem on February 16 and also in the clinic. He states he was supposed to have an ultrasound performed of his legs to evaluate for DVT, but he was not aware and missed the appointment. (JOSE LUIS BERNAL MD) Allergies and Home Medications Allergies Coded Allergies: diazepam (Verified Allergy, Unknown, PATIENT TAKES LORAZEPAM AT HOME, 01/28/22) morphine (Verified Allergy, Unknown, TAKES OXYCODONE AT HOME, 01/28/22) Patient Home Medication List Home Medication List Reviewed: Yes (JOSE LUIS BERNAL MD) Baclofen (Baclofen) 20 Mg Tablet, 20 MG PO TID PRN for MUSCLE SPASMS Prescribed by: SCOTT KWON on 01/22/16 1407 Cephalexin (Cephalexin) 500 Mg Tablet, 500 MG PO QID Prescribed by: IRVING GEORGE on 01/28/22 1715 Docusate Sodium (Colace Capsule) 100 Mg Cap, 100 MG PO DAILY PRN for CONSTIPATION, (Reported) Entered as Reported by: JUS SALAS on 05/28/11 0915 Doxycycline Hyclate (Doxycycline Hyclate) 100 Mg Tablet, 100 MG PO BID Prescribed by: JOSE LUIS PRESLEY on 02/20/22 2230 Esomeprazole Magnesium (Nexium) 40 Mg Cap, 40 MG PO HS, (Reported) Entered as Reported by: MARK ATKINS on 03/21/15 1634 Fluoxetine HCl (Fluoxetine HCl) 40 Mg Capsule, 40 MG PO DAILY @ 1400, (Reported) Entered as Reported by: MARK ATKINS on 03/21/15 1634 Furosemide (Furosemide) 40 Mg Tablet, 40 MG PO BID, (Reported) Entered as Reported by: VERÓNICA CHRISTOPHER on 01/28/22 1608 Hydrocodone Bit/Acetaminophen (Lortab 7.5 Mg Tablet) 1 Each Tablet, (Reported) Entered as Reported by: LISSY FINLEY on 12/02/16 1403 Hydrocodone/Acetaminophen ([place] 7.5-325 Tablet) 1 Each Tablet, 1 TAB PO Q8H PRN for PAIN, (Reported) Entered as Reported by: MARK ATKINS on 01/21/16 1307 Linaclotide (Linzess) 145 Mcg Capsule, 145 MCG PO DAILY, (Reported) Entered as Reported by: HAYDEN BOUDREAUX on 10/28/15 1841 Lorazepam (Lorazepam) 1 Mg Tablet, 0.5 MG PO TID PRN for ANXIETY Prescribed by: SCOTT KWON on 01/22/16 1407 Lorazepam (Lorazepam) 0.5 Mg Tablet, (Reported) Entered as Reported by: LISSY FINLEY on 12/02/16 1403 Meloxicam (Meloxicam) 15 Mg Tablet, 15 MG PO DAILY, (Reported) Entered as Reported by: MARK ATKINS on 03/21/15 1634 Naloxegol Oxalate (Movantik) 25 Mg Tablet, 25 MG PO DAILY, (Reported) Entered as Reported by: LIANNA KRUSE on 08/08/15 1020 Oxycodone HCl (Oxycontin) 60 Mg Tab.er.12h, 60 MG PO BID Prescribed by: SCOTT KWON on 01/22/16 1407 Polyethylene Glycol 3350 (Miralax) 17 Gm Powd.pack, 17 GM PO DAILY PRN for CONSTIPATION, (Reported) Entered as Reported by: LIANNA KRUSE on 08/08/15 1016 Potassium Chloride (Potassium Chloride) 20 Meq Tablet.er, 20 MEQ PO DAILY Prescribed by: JOSE LUIS PRESLEY on 02/20/22 2230 [Colon Assist] , 1 TAB PO DAILY, (Reported) Entered as Reported by: MARK ATKINS on 07/02/15 1042 Review of Systems Review of Systems Constitutional: no symptoms reported; No chills, No fever EENTM: no symptoms reported Respiratory: no symptoms reported Cardiovascular: no symptoms reported Gastrointestinal: no symptoms reported Genitourinary: no symptoms reported Musculoskeletal: see HPI Skin: see HPI Psychiatric/Neurological: No Symptoms Reported Hematologic/Lymphatic: No Symptoms Reported (JOSE LUIS BERNAL MD) Past Uzxoydv-Vbvadf-Mjgpmp Hx Patient Social History Tobacco Use?: No Use of E-Cig and/or Vaping dev: No Substance use?: No Alcohol Use?: No Pt feels they are or have been: No (JOSE LUIS BERNAL MD) Immunizations Up To Date Tetanus Booster (TDap): Unknown PED Vaccines UTD: No Influenza Vaccine Up-to-Date: No; Not Current First/Initial COVID19 Vaccinat: ONE DOSE Second COVID19 Vaccination Robert: ONE DOSE Third COVID19 Vaccination Date: ONE DOSE (JOSE LUIS BERNAL MD) Seasonal Allergies Seasonal Allergies: No (JOSE LUIS BERNAL MD) Past Medical History Surgery/Hospitalization HX: ANXIETY, PAIN, NECK SURGERY Surgeries: Yes (COLONOSCOPIES, CERVICAL SPINE SURGERY) Neurological, Orthopedic Respiratory: No Currently Using CPAP: No Currently Using BIPAP: No Cardiac: Yes Hypertension Neurological: Yes (CERVICAL SPINE FX WITH LEFT SIDE WEAKNESS) Paralysis, Spinal Cord Injury Reproductive Disorders: No Sexually Transmitted Disease: No HIV/AIDS: No Genitourinary: Yes Neurogenic Bladder Gastrointestinal: Yes Gastroesophageal Reflux, Chronic Constipation, Diverticulosis Musculoskeletal: Yes Chronic Back Pain, Fractures, Spasms Endocrine: No Tinnitis Loss of Vision: Denies Hearing Impairment: Denies Cancer: No Psychosocial: Yes Anxiety, Suicide Attempts, Depression Integumentary: No Blood Disorders: No (JOSE LUIS BERNAL MD) Family Medical History Cardiovascular disease G8 BROTHER Diabetes mellitus 19 FATHER, , Age:85 19 MOTHER, Onset:Unknown Hypertension 19 MOTHER Seizure disorder G8 BROTHER No Pertinent Family Hx (JOSE LUIS BERNAL MD) Physical Exam Vital Signs Vital Signs - First Documented 02/20/22 20:22 Temp 36.8 Pulse 77 Resp 20 B/P (MAP) 130/66 (87) Pulse Ox 97 O2 Delivery Room Air (HAN,PAKO K DO) Vital Signs Capillary Refill : Less Than 3 Seconds (JOSE LUIS BERNAL MD) Height, Weight, BMI Height: 5'10.00" Weight: 200lbs. 0.0oz. 90.735788ne; 35.00 BMI Method:Estimated General Appearance: No Apparent Distress, WD/WN, Obese HEENT: PERRL/EOMI, Normal ENT Inspection Respiratory: Lungs Clear, Normal Breath Sounds, No Accessory Muscle Use Cardiovascular: Regular Rate, Rhythm, No Murmur, Other (Marked lower extremity edema, left greater than right) Extremity: Pedal Edema, Swelling, Other (Marked firm pitting lower extremity edema bilaterally, left greater than right. Pedal pulses palpable and good capillary refill in the feet. Erythema of both lower extremities, left greater than right. Blisters and weeping on the left.) Neurologic/Psychiatric: Alert, Oriented x3, Normal Mood/Affect, Other (Chronic deficits from spinal cord injury) Skin: Other (See above extremity exam) (JOSE LUIS BERNAL MD) Progress/Results/Core Measures Suspected Sepsis SIRS Temperature: Pulse: 77 Respiratory Rate: 20 Laboratory Tests 02/20/22 21:12: White Blood Count 13.0H Blood Pressure 130 /66 Mean: 87 Laboratory Tests 02/20/22 21:12: Creatinine 0.84, Platelet Count 240 (JOSE LUIS BERNAL MD) Results/Orders Lab Results Laboratory Tests Test 02/20/22 21:12 Range/Units White Blood Count 13.0 H 4.3-11.0 10^3/uL Red Blood Count 3.87 L 4.30-5.52 10^6/uL Hemoglobin 11.3 L 13.3-17.7 g/dL Hematocrit 34 L 40-54 % Mean Corpuscular Volume 89 80-99 fL Mean Corpuscular Hemoglobin 29 25-34 pg Mean Corpuscular Hemoglobin Concent 33 32-36 g/dL Red Cell Distribution Width 14.2 10.0-14.5 % Platelet Count 240 130-400 10^3/uL Mean Platelet Volume 9.5 9.0-12.2 fL Immature Granulocyte % (Auto) 0 % Neutrophils (%) (Auto) 61 42-75 % Lymphocytes (%) (Auto) 31 12-44 % Monocytes (%) (Auto) 6 0-12 % Eosinophils (%) (Auto) 2 0-10 % Basophils (%) (Auto) 1 0-10 % Neutrophils # (Auto) 8.0 H 1.8-7.8 10^3/uL Lymphocytes # (Auto) 4.0 1.0-4.0 10^3/uL Monocytes # (Auto) 0.7 0.0-1.0 10^3/uL Eosinophils # (Auto) 0.2 0.0-0.3 10^3/uL Basophils # (Auto) 0.1 0.0-0.1 10^3/uL Immature Granulocyte # (Auto) 0.0 0.0-0.1 10^3/uL Sodium Level 140 135-145 MMOL/L Potassium Level 2.8 L 3.6-5.0 MMOL/L Chloride Level 95 L 98-107 MMOL/L Carbon Dioxide Level 32 21-32 MMOL/L Anion Gap 13 5-14 MMOL/L Blood Urea Nitrogen 14 7-18 MG/DL Creatinine 0.84 0.60-1.30 MG/DL Estimat Glomerular Filtration Rate 100 BUN/Creatinine Ratio 17 Glucose Level 90 70-105 MG/DL Calcium Level 8.8 8.5-10.1 MG/DL C-Reactive Protein High Sensitivity 0.63 H 0.00-0.50 MG/DL B-Type Natriuretic Peptide 18.4 <100.0 PG/ML (HAN,PAKO K DO) Medications Given in ED (HAN,PAKO K DO) Vital Signs/I&O 02/20/22 02/21/22 20:22 02:13 Temp 36.8 Pulse 77 77 Resp 20 20 B/P (MAP) 130/66 (87) 100/64 Pulse Ox 97 99 O2 Delivery Room Air Room Air (HAN,PAKO K DO) Vital Signs/I&O Capillary Refill : Less Than 3 Seconds (JOSE LUIS BERNAL MD) Blood Pressure Mean: 87 Progress Note : Time: 22:12 Progress Note Patient was found to have significant hypokalemia with potassium of 2.8. He was given potassium 10 mEq by IV route and 40 mEq by oral route. He has not been taking potassium with his Lasix to his knowledge. I am going to prescribe him a short course of potassium to take with his Lasix to buy him time for follow-up. His need for lower extremity Doppler ultrasounds is a dilemma. We do not have immediate access to D-dimer labs as the coag machine is not currently functional and coag labs require a flyer builder. Ultrasound is not available for this indication in the evening. Normally, patient would be asked to return in the morning for an outpatient ultrasound study, but he claims he has no transportation after tonight. His family is traveling out of town and will be gone the entire weekend. He has mobility issues due to his neurologic deficits and chronic pain. Due to the lack of coag labs, I contacted the converting technician lamination inspector who is available and graciously willing to come in to perform ultrasounds. Patient is receiving Rocephin for treatment of lower extremity cellulitis. I advised return to wound care. He has not been to wound care in several months. He is already receiving Lasix 40 mg twice daily. He would likely benefit from wound care and edema wrapping. Care of this patient is being transitioned to Dr. SHORT at this time for supervision until the ultrasound studies are performed. See discharge instructions for further discussion. Patient is lacking his pain medications for chronic pain and requested to be treated. Percocet was ordered. (JOSE LUIS BERNAL MD) Diagnostic Imaging Diagonstic Imaging: Ultrasound Plain Films/CT/US/NM/MRI: leg Comments NAME: ESCOBAR GARCIA [facility] REC#: [id number] PT STATUS: DEP ER : 1960 PHYSICIAN: JOSE LUIS BERNAL MD ADMIT DATE: 02/20/22/ER Signed Date of Exam:02/20/22 US VENOUS LOWER EXT BIB[place]NA PROCEDURE: US Venous Lower Ext Bib[place]. TECHNIQUE: Multiple real-time grayscale images were obtained over the lower extremities in various projections, bilaterally. Additional duplex Doppler and color Doppler images were also obtained. INDICATION: Pain and swelling. FINDINGS: The right common femoral, femoral popliteal and tibial veins demonstrate normal response to compression, augmentation and Valsalva. The left leg veins were difficult to visualize. All appear to compress and augment. It was limited due to patient's inability to position and move. There are no abnormal fluid collections or masses. IMPRESSION: No evidence of deep venous thrombosis in the right lower extremity. No definite evidence of deep venous thrombosis on the left, however, the examination was technically difficult as described. Dictated by: Dictated on workstation # [id number] Dict: 02/21/22 0636 Trans: 02/21/22 0832 ROBINSON [id number] Interpreted by: GARY PARR MD Electronically signed by: GARY PARR MD 02/21/22831 (JOSE LUIS BERNAL MD) Comments BILATERAL LOWER EXTREMITY ULTRASOUND/VENOUS DOPPLER--NO DVT, PER [facility] VIA FAX AT [phone] Reviewed: Reviewed by Me (PAKO SHORT DO) Departure Impression Primary Impression: Lower extremity edema Additional Impressions: Hypokalemia Cellulitis of lower extremity Qualified Codes: L03.119 - Cellulitis of unspecified part of limb Chronic pain Qualified Codes: G89.29 - Other chronic pain Disposition: HOME, SELF-CARE Condition: Improved Departure-Patient Inst. Decision time for Depature: 22:26 (JOSE LUIS BERNAL MD) Decision time for Depature: 02:05 (PAKO SHORT DO) Referrals: KERRY YATES MD (PCP/Family) Primary Care Physician Patient Instructions: Cellulitis (Skin Infection), Adult ED, Dependent Edema (DC), Hypokalemia Add. Discharge Instructions: Elevate your feet to the level of your heart as much as possible. Start your doxycycline antibiotic as prescribed. Please note that this medication may cause sun sensitivity, so be careful when you are in the sun. Start taking potassium chloride as prescribed. Always take potassium on days you take Lasix (furosemide). If you do not take the Lasix for any reason, then skip the potassium also. You must follow-up with your primary care provider with in the next week to have your potassium checked again. Please call tomorrow morning to schedule an appointment time. Inform the polisher numeral that you MUST have your potassium rechecked within the next week as directed by the ER physician. Contact wound care to reestablish services. Call them on Wednesday. You may call them at [phone]. Return to the ER if you are having worsening symptoms despite following these instructions. All discharge instructions reviewed with patient and/or family. Voiced understanding. Scripts Potassium Chloride (Potassium Chloride) 20 Meq Tablet.er 20 MEQ PO DAILY, #10 TAB Prov: JOSE LUIS BERNAL MD 02/20/22 Doxycycline Hyclate (Doxycycline Hyclate) 100 Mg Tablet 100 MG PO BID, #20 TAB 0 Refills Prov: JOSE LUIS BERNAL MD 02/20/22 Copy Copies To 1: KERRY YATES MD, JOSHUA T MD Feb 20, 2022 22:12 PAKO SHORT DO Feb 21, 2022 02:07
[2022-02-20] MEDS ORDERED: cefTRIAXone 1 GM PRE-MIX 50 ML IV STA (22:13)
[2022-02-20] MEDS ORDERED: oxyCODONE/APAP 5/325MG (PERCOCET 5) TABLET PO ONE (22:30)
[2022-02-20] MEDS ORDERED: DOXY100T2 PO (22:30)
[2022-02-20] MEDS ORDERED: POTA-51 PO (22:30)
[2022-02-21 02:13] VITALS: BP 100/64
--- NOTE | 2022-02-21 06:51 | Diagnostic Imaging Report ---
PROCEDURE: US Venous Lower Ext Jordy. TECHNIQUE: Multiple real-time grayscale images were obtained over the lower extremities in various projections, bilaterally. Additional duplex Doppler and color Doppler images were also obtained. INDICATION: Pain and swelling. FINDINGS: The right common femoral, femoral popliteal and tibial veins demonstrate normal response to compression, augmentation and Valsalva. The left leg veins were difficult to visualize. All appear to compress and augment. It was limited due to patient's inability to position and move. There are no abnormal fluid collections or masses. IMPRESSION: No evidence of deep venous thrombosis in the right lower extremity. No definite evidence of deep venous thrombosis on the left, however, the examination was technically difficult as described. Dictated by: Dictated on workstation # [id number]
== END 2022-02-21 02:30 | disposition home or self-care (01) ==
LOC: EDUNIT# 20:15 → ER 20:16
DX: E87.6 Hypokalemia (principal); L03.116 Cellulitis of left lower limb; L03.115 Cellulitis of right lower limb; G89.29 Other chronic pain; R60.0 Localized edema; E66.9 Obesity, unspecified; Z68.35 Body mass index [BMI] 35.0-35.9, adult
CPT/HCPCS: 36415; 80048; 83880; 85025; 86141; 93970

== ENCOUNTER → 2022-04-14 | Outpatient (CLI) | payer MEDICARE, MEDICAID ==
[~2022-04-14] MED LIST changes: +DOXY100T2 PO; +POTA-51 PO
== END ==
LOC: WOUNDCARE 09:44
PROVIDERS: ATTEND Family Medicine
DX: L97.222 Non-pressure chronic ulcer of left calf with fat layer exposed (principal); I89.0 Lymphedema, not elsewhere classified; I70.242 Atherosclerosis of native arteries of left leg with ulceration of calf; I87.332 Chronic venous hypertension (idiopathic) with ulcer and inflammation of left lower extremity; E66.01 Morbid (severe) obesity due to excess calories; M62.3 Immobility syndrome (paraplegic); M62.81 Muscle weakness (generalized)
CPT/HCPCS: 97597; A6197; G0463

== ENCOUNTER → 2022-04-14 | Outpatient (CLI) | payer MEDICARE, MEDICAID ==
--- NOTE | 2022-04-14 17:44 | Diagnostic Imaging Report ---
PROCEDURE: US left lower extremity venous. TECHNIQUE: Multiple real-time grayscale images were obtained over the left lower extremity in various projections. Additional duplex Doppler and color Doppler images were also obtained. INDICATION: L97.222, pain COMPARISON: 02/20/2022 FINDINGS: Normal flow, compression, and augmentation within the visualized deep venous structures of the left lower extremity IMPRESSION: No evidence of deep venous thrombosis within the left lower extremity. Dictated by: Dictated on workstation # [id number]
== END ==
LOC: RAD 11:30
PROVIDERS: ATTEND Family Medicine
DX: L97.222 Non-pressure chronic ulcer of left calf with fat layer exposed (principal); I89.0 Lymphedema, not elsewhere classified; I70.242 Atherosclerosis of native arteries of left leg with ulceration of calf; I87.332 Chronic venous hypertension (idiopathic) with ulcer and inflammation of left lower extremity; E66.01 Morbid (severe) obesity due to excess calories; M62.3 Immobility syndrome (paraplegic); M62.81 Muscle weakness (generalized)
CPT/HCPCS: 36415; 84134; 85652; 86141

== ENCOUNTER 2022-04-18 18:32 | Emergency (ER) | payer MEDICARE, MEDICAID ==
[~2022-04-18] VITALS: Ht 170 cm; Wt 109.3 kg
--- NOTE | 2022-04-18 18:34 | ED Back Pain ---
General Stated Complaint: LOWER BACK PAIN Source of Information: Patient Exam Limitations: No Limitations (DANETTE BOOTHE APRN) History of Present Illness Date Seen by Provider: Apr 18, 2022 Time Seen by Provider: 18:34 Initial Comments 61 y/o male presents this evening with c/o bilateral lower back pain that started this afternoon. Pt states he woke up from nap and had stiffness and throbbing in his lower back. He denies any recent falls, injury/trauma and has not been doing any heavy lifting or anything that he believes could've caused his pain. He reports h/o chronic back and neck pain, takes baclofen daily. Pt states the baclofen has not helped the pain he is experiencing today. Location: Paraspinous Muscles Timing/Duration: 1 Hour Severity: Moderate Pain/Injury Location: Back Method of Injury: Unknown Modifying Factors: Worse With Movement Associated Symptoms: muscle spasms; No fever, No weakness, No numbness in legs/feet, No tingling in legs/feet, No sensory/motor loss; lower back pain; No loss of bladder control, No loss of bowel control (DANETTE BOOTHE APRN) Allergies and Home Medications Allergies Coded Allergies: diazepam (Verified Allergy, Unknown, PATIENT TAKES LORAZEPAM AT HOME, 01/28/22) morphine (Verified Allergy, Unknown, TAKES OXYCODONE AT HOME, 01/28/22) Patient Home Medication List Home Medication List Reviewed: Yes (DANETTE BOOTHE APRN) Baclofen (Baclofen) 20 Mg Tablet, 20 MG PO TID PRN for MUSCLE SPASMS Prescribed by: SCOTT KWON on 01/22/16 1407 Cephalexin (Cephalexin) 500 Mg Tablet, 500 MG PO QID Prescribed by: IRVING GEORGE on 01/28/22 1715 Cyclobenzaprine HCl (Cyclobenzaprine HCl) 10 Mg Tablet, 10 MG PO TID Prescribed by: Danette Boothe on 04/18/22 194 Docusate Sodium (Colace Capsule) 100 Mg Cap, 100 MG PO DAILY PRN for CONSTIPATION, (Reported) Entered as Reported by: JUS SALAS on 05/28/11 0915 Doxycycline Hyclate (Doxycycline Hyclate) 100 Mg Tablet, 100 MG PO BID Prescribed by: JOSE LUIS PRESLEY on 02/20/22 2230 Esomeprazole Magnesium (Nexium) 40 Mg Cap, 40 MG PO HS, (Reported) Entered as Reported by: MARK ATKINS on 03/21/15 1634 Fluoxetine HCl (Fluoxetine HCl) 40 Mg Capsule, 40 MG PO DAILY @ 1400, (Reported) Entered as Reported by: MARK ATKINS on 03/21/15 1634 Furosemide (Furosemide) 40 Mg Tablet, 40 MG PO BID, (Reported) Entered as Reported by: VERÓNICA CHRISTOPHER on 01/28/22 1608 Hydrocodone Bit/Acetaminophen (Lortab 7.5 Mg Tablet) 1 Each Tablet, (Reported) Entered as Reported by: LISSY FINLEY on 12/02/16 1403 Hydrocodone/Acetaminophen ([place] 7.5-325 Tablet) 1 Each Tablet, 1 TAB PO Q8H PRN for PAIN, (Reported) Entered as Reported by: MARK ATKINS on 01/21/16 1307 Linaclotide (Linzess) 145 Mcg Capsule, 145 MCG PO DAILY, (Reported) Entered as Reported by: HAYDEN BOUDREAUX on 10/28/15 1841 Lorazepam (Lorazepam) 1 Mg Tablet, 0.5 MG PO TID PRN for ANXIETY Prescribed by: SCOTT KWON on 01/22/16 1407 Lorazepam (Lorazepam) 0.5 Mg Tablet, (Reported) Entered as Reported by: LISSY FINLEY on 12/02/16 1403 Meloxicam (Meloxicam) 15 Mg Tablet, 15 MG PO DAILY, (Reported) Entered as Reported by: MARK ATKINS on 03/21/15 1634 Naloxegol Oxalate (Movantik) 25 Mg Tablet, 25 MG PO DAILY, (Reported) Entered as Reported by: LIANNA KRUSE on 08/08/15 1020 Naproxen (Naproxen) 500 Mg Tablet, 500 MG PO Q12H Prescribed by: Danette Boothe on 04/18/22 194 Oxycodone HCl (Oxycontin) 60 Mg Tab.er.12h, 60 MG PO BID Prescribed by: SCOTT KWON on 01/22/16 1407 Polyethylene Glycol 3350 (Miralax) 17 Gm Powd.pack, 17 GM PO DAILY PRN for CONSTIPATION, (Reported) Entered as Reported by: LIANNA KRUSE on 3/3/16 1016 Potassium Chloride (Potassium Chloride) 20 Meq Tablet.er, 20 MEQ PO DAILY Prescribed by: JOSE LUIS PRESLEY on 02/20/220 [Colon Assist] , 1 TAB PO DAILY, (Reported) Entered as Reported by: MARK ATKINS on 07/02/15 1042 Review of Systems Constitutional: no symptoms reported Respiratory: no symptoms reported Cardiovascular: no symptoms reported Gastrointestinal: no symptoms reported Genitourinary: no symptoms reported Musculoskeletal: back pain; No joint pain, No joint swelling; muscle pain; No muscle twitching, No muscle weakness Skin: no symptoms reported Psychiatric/Neurological: Denies Headache, Denies Numbness, Denies Paresthesia, Denies Tingling, Denies Tremors, Denies Weakness (DANETTE BOOTHE APRN) Past Fsjlkpc-Orktqu-Kywhvw Hx Patient Social History Tobacco Use?: No Substance type: Marijuana Alcohol Use?: No (DANETTE BOOTHE APRN) Past Medical History Surgeries: Yes (cervical spine) (DANETTE BOOTHE APRN) Physical Exam Vital Signs Vital Signs - First Documented 04/18/22 18:35 Pulse 81 B/P (MAP) 153/93 (113) Pulse Ox 95 O2 Delivery Room Air (JOSE LUIS BERNAL MD) Vital Signs Capillary Refill : (DANETTE BOOTHE APRN) Height, Weight, BMI Height: '" Weight: lbs. oz. kg; BMI Method: General Appearance: No Apparent Distress, WD/WN Neck: Full Range of Motion, Normal Inspection, Non Tender, Supple Cardiovascular: Regular Rate, Rhythm, No Edema, Normal Peripheral Pulses Respiratory: Chest Non Tender, Lungs Clear, Normal Breath Sounds Gastrointestinal: Normal Bowel Sounds, No Organomegaly, Non Tender, Soft Back: No CVA Tenderness, No Vertebral Tenderness, Muscle Spasm (bilateral lumbar paraspinal muscles) Extremity: Normal Range of Motion, Non Tender Neurologic/Psychiatric: Alert, Oriented x3, No Motor/Sensory Deficits (DANETTE BOOTHE APRN) Progress/Results/Core Measures Results/Orders Vital Signs/I&O 04/18/22 04/18/22 18:35 19:45 Pulse 81 B/P (MAP) 153/93 (113) 107/73 Pulse Ox 95 O2 Delivery Room Air (JOSE LUIS BERNAL MD) Progress Progress Note : Progress Note Pt reports resolution of pain following toradol, norco, and flexeril. Pt able to ambulate without difficulty. (DANETTE BOOTHE APRN) Departure Impression Primary Impression: Back pain Additional Impression: Muscle spasm of back Disposition: 01 HOME, SELF-CARE Condition: Improved Departure-Patient Inst. Decision time for Depature: 19:30 (DANETTE BOOTHE APRN) Patient Instructions: Muscle Spasms (DC) Add. Discharge Instructions: Rest, avoid activities that make pain worse. Cyclobenzaprine three times daily as needed for muscle spasms. Naproxen twice daily. Tylenol 500mg every 4 hours as needed. Heat to affected area for 20 minutes 3-4 times/day and as needed. Stretching and range of motion exercises three times daily. Follow up with PCP if symptoms persist. Follow up with any new/worsening concerns Scripts Naproxen (Naproxen) 500 Mg Tablet 500 MG PO Q12H for Renal Colic for 10 Days, #20 TAB 0 Refills Prov: DANETTE BOOTHE APRN 04/18/22 Cyclobenzaprine HCl (Cyclobenzaprine HCl) 10 Mg Tablet 10 MG PO TID for Muscle Spasms, #15 TAB 0 Refills Prov: DANETTE BOOTHE APRN 04/18/22 ATTENDING PHYSICIAN NOTE: I was physically present as attending physician in the emergency department during the care of this patient, but I was not directly involved in the decision making or delivery of care for this patient. (JOSE LUIS BERNAL MD) DANETTE BOOTHE APRN Apr 18, 2022 18:34 JOSE LUIS BERNAL MD Apr 20, 2022 05:45
[2022-04-18] MEDS ORDERED: HYDROcodone/APAP 5 MG/325 MG (LORTAB) TAB PO ONE (19:00)
[2022-04-18] MEDS ORDERED: KETOROLAC 60 MG/2 ML VIAL IM ONE (19:00)
[2022-04-18] MEDS ORDERED: CYCLOBENZAPRINE 10 MG (FLEXERIL) TAB PO ONE ×2 (19:15→21:00)
[2022-04-18] MEDS ORDERED: NAPR-915 PO (19:41)
[2022-04-18] MEDS ORDERED: CYCL10TA25 PO (19:41)
[2022-04-18 19:45] VITALS: BP 107/73
== END 2022-04-18 19:45 | disposition home or self-care (01) ==
LOC: EDUNIT# 18:32 → ER 18:35
DX: M54.50 Low back pain, unspecified (principal); M62.830 Muscle spasm of back
CPT/HCPCS: 99284

== ENCOUNTER → 2022-04-27 | Outpatient (CLI) | payer MEDICARE, MEDICAID ==
[~2022-04-27] MED LIST changes: +CYCL10TA25 PO; +NAPR-915 PO
== END ==
LOC: WOUNDCARE 09:49
PROVIDERS: ATTEND Family Medicine
DX: I96 Gangrene, not elsewhere classified (principal); L97.222 Non-pressure chronic ulcer of left calf with fat layer exposed; I89.0 Lymphedema, not elsewhere classified; I70.242 Atherosclerosis of native arteries of left leg with ulceration of calf; I87.332 Chronic venous hypertension (idiopathic) with ulcer and inflammation of left lower extremity; E66.01 Morbid (severe) obesity due to excess calories; M62.3 Immobility syndrome (paraplegic); M62.81 Muscle weakness (generalized); Z68.38 Body mass index [BMI] 38.0-38.9, adult
CPT/HCPCS: 11042; 11045

== ENCOUNTER → 2022-05-05 | Outpatient (CLI) | payer MEDICARE, MEDICAID | LOC: WOUNDCARE 10:48 | PROVIDERS: ATTEND Family Medicine | DX: I96 Gangrene, not elsewhere classified (principal); L97.222 Non-pressure chronic ulcer of left calf with fat layer exposed; L97.212 Non-pressure chronic ulcer of right calf with fat layer exposed; I89.0 Lymphedema, not elsewhere classified; I70.242 Atherosclerosis of native arteries of left leg with ulceration of calf; I87.332 Chronic venous hypertension (idiopathic) with ulcer and inflammation of left lower extremity; M62.3 Immobility syndrome (paraplegic); E66.01 Morbid (severe) obesity due to excess calories; M62.81 Muscle weakness (generalized); E44.0 Moderate protein-calorie malnutrition; Z91.199 Patient's noncompliance with other medical treatment and regimen due to unspecified reason; Z68.38 Body mass index [BMI] 38.0-38.9, adult | CPT/HCPCS: 11042; 11045; A6207; A6253; G0463 ==

== ENCOUNTER → 2022-05-08 | Outpatient (CLI) | payer MEDICARE, MEDICAID | LOC: WOUNDCARE 08:13 | PROVIDERS: ATTEND Family Medicine | DX: I89.0 Lymphedema, not elsewhere classified (principal); L97.212 Non-pressure chronic ulcer of right calf with fat layer exposed | CPT/HCPCS: 29581; A6207; A6253; G0463 ==

== ENCOUNTER → 2022-05-12 | Outpatient (CLI) | payer MEDICARE, MEDICAID | LOC: WOUNDCARE 11:24 | PROVIDERS: ATTEND Family Medicine | DX: L97.222 Non-pressure chronic ulcer of left calf with fat layer exposed (principal); I89.0 Lymphedema, not elsewhere classified; I70.242 Atherosclerosis of native arteries of left leg with ulceration of calf; I87.332 Chronic venous hypertension (idiopathic) with ulcer and inflammation of left lower extremity; E66.01 Morbid (severe) obesity due to excess calories; M62.3 Immobility syndrome (paraplegic); M62.81 Muscle weakness (generalized); E44.0 Moderate protein-calorie malnutrition; L97.212 Non-pressure chronic ulcer of right calf with fat layer exposed; L03.116 Cellulitis of left lower limb; I96 Gangrene, not elsewhere classified; Z91.199 Patient's noncompliance with other medical treatment and regimen due to unspecified reason | CPT/HCPCS: 11042; 87070; 87205; A6207; A6253; G0463 ==

== ENCOUNTER → 2022-05-15 | Outpatient (CLI) | payer MEDICARE, MEDICAID | LOC: WOUNDCARE 08:04 | PROVIDERS: ATTEND Family Medicine | DX: I89.0 Lymphedema, not elsewhere classified (principal); L97.212 Non-pressure chronic ulcer of right calf with fat layer exposed | CPT/HCPCS: 29581; A6207; A6253; G0463 ==

== ENCOUNTER → 2022-05-19 | Outpatient (CLI) | payer MEDICARE, MEDICAID | LOC: WOUNDCARE 09:24 | PROVIDERS: ATTEND Family Medicine | DX: I70.242 Atherosclerosis of native arteries of left leg with ulceration of calf (principal); L97.222 Non-pressure chronic ulcer of left calf with fat layer exposed; I89.0 Lymphedema, not elsewhere classified; I87.332 Chronic venous hypertension (idiopathic) with ulcer and inflammation of left lower extremity; E66.01 Morbid (severe) obesity due to excess calories; M62.3 Immobility syndrome (paraplegic); M62.81 Muscle weakness (generalized); E44.0 Moderate protein-calorie malnutrition; Z91.199 Patient's noncompliance with other medical treatment and regimen due to unspecified reason; L97.212 Non-pressure chronic ulcer of right calf with fat layer exposed; L03.116 Cellulitis of left lower limb; B95.2 Enterococcus as the cause of diseases classified elsewhere; I96 Gangrene, not elsewhere classified | CPT/HCPCS: 11042; A6253; G0463 ==

== ENCOUNTER 2022-05-26 10:30 | Emergency (ER) | payer MEDICARE, MEDICAID ==
[~2022-05-26] VITALS: Ht 170 cm; Wt 101.0 kg
[2022-05-26 11:33] LABS: BASOPHILS # (AUTO) 0.1 10^3/uL (0.0-0.1); BASOPHILS % (AUTO) 1 % (0-10); EOSINOPHILS # (AUTO) 0.2 10^3/uL (0.0-0.3); EOSINOPHILS % (AUTO) 2 % (0-10); HEMATOCRIT 41 % (40-54); HEMOGLOBIN 13.9 g/dL (13.3-17.7); LYMPHOCYTES # (AUTO) 2.9 10^3/uL (1.0-4.0); LYMPHOCYTES % (AUTO) 28 % (12-44); MEAN CORPUSCULAR HEMOGLOBIN 30 pg (25-34); MEAN CORPUSCULAR HGB CONC 34 g/dL (32-36); MEAN CORPUSCULAR VOLUME 88 fL (80-99); MEAN PLATELET VOLUME 10.4 fL (9.0-12.2); MONOCYTES # (AUTO) 0.8 10^3/uL (0.0-1.0); MONOCYTES % (AUTO) 7 % (0-12); NEUTROPHILS # (AUTO) 6.2 10^3/uL (1.8-7.8); NEUTROPHILS % (AUTO) 62 % (42-75); PLATELET COUNT 357 10^3/uL (130-400); WHITE BLOOD COUNT 10.1 10^3/uL (4.3-11.0)
[2022-05-26 11:37] LABS: POTASSIUM 4.6 MMOL/L (3.6-5.0)
[2022-05-26 11:39] LABS: CALCIUM 9.9 MG/DL (8.5-10.1); PROTHROMBIN TIME PATIENT 13.3 SEC (12.2-14.7)
[2022-05-26 11:40] LABS: TOTAL PROTEIN 7.9 GM/DL (6.4-8.2)
--- NOTE | 2022-05-26 11:40 | ED Chest Pain ---
General Chief Complaint: Chest Pain Stated Complaint: CHEST PAINS Nursing Triage Note: ARRIVED VIA AMB TO ROOM 5 WITH CHEST PAIN. STATES IT STARTED OVER THE WEEKEND AND WAKING UP MAKES IT WORSE. PT STATES HIS NIECE COMMITED SCUICIDE 3 DAYS AGO AND HAS TO GO WITH HIS BROTHER TO THE HOME AFTER LEAVING HERE. Source: patient Exam Limitations: no limitations History of Present Illness Date Seen by Provider: May 26, 2022 Time Seen by Provider: 11:15 Initial Comments Pt is a 61 male who arrived by POV. History obtained from patient. Pt reports he was here at the hospital today for a wound care appointment for wounds on his legs, dressings intact. Reports he came to the ED due to some central, across the chest aching/pressure like pain which he has had all weekend. Pt reports the pain is constant. Reports he is unsure what he was doing when the pain started, but states that he does not get around much so he was probably just sitting wa tching tv when the pain started. Pt reports pain is worse with movement and with deep breaths. Pain is not reproducible. Reports associated SOA due to the pain. Pt reports over the weekend he also had flu-like symptoms. Reports he had fever/chills, and n/v. Pt denied having a cough. Reports that these symptoms have improved, but the chest pain has persisted. Pt reports hx of high cholesterol which he takes medications for and poor blood flow in his legs. Pt denies any recent new calf pain, pt reports claudication, but reports pain always improves with rest. Pt is a former smoker, quit 15 years ago. Timing/Duration: 3-4 days Severity/Quality: aching, pressure Location: central Radiation: no radiation Activities at Onset: none Associated Symptoms: fever/chills, nausea/vomiting, shortness of breath Allergies and Home Medications Allergies Coded Allergies: diazepam (Verified Allergy, Unknown, PATIENT TAKES LORAZEPAM AT HOME, 01/28/22) morphine (Verified Allergy, Unknown, TAKES OXYCODONE AT HOME, 01/28/22) Patient Home Medication List Home Medication List Reviewed: Yes Baclofen (Baclofen) 20 Mg Tablet, 20 MG PO TID PRN for MUSCLE SPASMS Prescribed by: SCOTT KWON on 01/22/16 1407 Cephalexin (Cephalexin) 500 Mg Tablet, 500 MG PO QID Prescribed by: IRVING GEORGE on 01/28/22 1715 Cyclobenzaprine HCl (Cyclobenzaprine HCl) 10 Mg Tablet, 10 MG PO TID Prescribed by: Gracy Paez on 04/18/22 194 Docusate Sodium (Colace Capsule) 100 Mg Cap, 100 MG PO DAILY PRN for CONSTIPATION, (Reported) Entered as Reported by: JSU SALAS on 05/28/11 0915 Doxycycline Hyclate (Doxycycline Hyclate) 100 Mg Tablet, 100 MG PO BID Prescribed by: JOSE LUIS PRESLEY on 02/20/22 2230 Esomeprazole Magnesium (Nexium) 40 Mg Cap, 40 MG PO HS, (Reported) Entered as Reported by: MARK ATKINS on 03/21/15 1634 Fluoxetine HCl (Fluoxetine HCl) 40 Mg Capsule, 40 MG PO DAILY @ 1400, (Reported) Entered as Reported by: MARK ATKINS on 03/21/15 1634 Furosemide (Furosemide) 40 Mg Tablet, 40 MG PO BID, (Reported) Entered as Reported by: VERÓNICA CHRISTOPHER on 01/28/22 1608 Hydrocodone Bit/Acetaminophen (Lortab 7.5 Mg Tablet) 1 Each Tablet, (Reported) Entered as Reported by: LISSY FINLEY on 12/02/16 1403 Hydrocodone/Acetaminophen ([place] 7.5-325 Tablet) 1 Each Tablet, 1 TAB PO Q8H PRN for PAIN, (Reported) Entered as Reported by: MARK ATKINS on 01/21/16 1307 Linaclotide (Linzess) 145 Mcg Capsule, 145 MCG PO DAILY, (Reported) Entered as Reported by: HAYDEN BOUDREAUX on 10/28/15 1841 Lorazepam (Lorazepam) 1 Mg Tablet, 0.5 MG PO TID PRN for ANXIETY Prescribed by: SCOTT KWON on 01/22/16 1407 Lorazepam (Lorazepam) 0.5 Mg Tablet, (Reported) Entered as Reported by: LISSY FINLEY on 12/02/16 1403 Meloxicam (Meloxicam) 15 Mg Tablet, 15 MG PO DAILY, (Reported) Entered as Reported by: MARK ATKINS on 03/21/15 1634 Naloxegol Oxalate (Movantik) 25 Mg Tablet, 25 MG PO DAILY, (Reported) Entered as Reported by: LIANNA KRUSE on 08/08/15 1020 Naproxen (Naproxen) 500 Mg Tablet, 500 MG PO Q12H Prescribed by: Gracy Paez on 04/18/22 194 Oxycodone HCl (Oxycontin) 60 Mg Tab.er.12h, 60 MG PO BID Prescribed by: SCOTT KWON on 01/22/16 1407 Polyethylene Glycol 3350 (Miralax) 17 Gm Powd.pack, 17 GM PO DAILY PRN for CONSTIPATION, (Reported) Entered as Reported by: LIANNA KRUSE on 08/08/15 1016 Potassium Chloride (Potassium Chloride) 20 Meq Tablet.er, 20 MEQ PO DAILY Prescribed by: JOSE LUIS PRESLEY on 02/20/22 2230 [Colon Assist] , 1 TAB PO DAILY, (Reported) Entered as Reported by: MARK ATKINS on 07/02/15 1042 Review of Systems Review of Systems Constitutional: see HPI Past Fyuutxn-Kuxitm-Rkpjdt Hx Patient Social History Tobacco Use?: Yes Smoking Status: Former Smoker Substance use?: Yes Substance type: Marijuana Alcohol Use?: No Immunizations Up To Date Tetanus Booster (TDap): Unknown PED Vaccines UTD: No First/Initial COVID19 Vaccinat: JJ Second COVID19 Vaccination Robert: ONE DOSE Third COVID19 Vaccination Date: ONE DOSE COVID19 Vaccine Pneumatic Drum Sander: VALE Seasonal Allergies Seasonal Allergies: No Past Medical History Surgery/Hospitalization HX: ANXIETY, PAIN, NECK SURGERY Surgeries: Yes (cervical spine) Neurological, Orthopedic Respiratory: No Currently Using CPAP: No Currently Using BIPAP: No Cardiac: Yes Hypertension Neurological: Yes (CERVICAL SPINE FX WITH LEFT SIDE WEAKNESS) Paralysis, Spinal Cord Injury Reproductive Disorders: No Sexually Transmitted Disease: No HIV/AIDS: No Genitourinary: Yes Neurogenic Bladder Gastrointestinal: Yes Gastroesophageal Reflux, Chronic Constipation, Diverticulosis Musculoskeletal: Yes Chronic Back Pain, Fractures, Spasms Endocrine: No Tinnitis Loss of Vision: Denies Hearing Impairment: Denies Cancer: No Psychosocial: Yes Anxiety, Suicide Attempts, Depression Integumentary: No Blood Disorders: No Family Medical History Cardiovascular disease G8 BROTHER Diabetes mellitus 19 FATHER, , Age:85 19 MOTHER, Onset:Unknown Hypertension 19 MOTHER Seizure disorder G8 BROTHER No Pertinent Family Hx Physical Exam Vital Signs Vital Signs - First Documented 05/26/22 10:33 Temp 36.0 Pulse 60 Resp 16 B/P (MAP) 158/105 (122) Pulse Ox 99 O2 Delivery Room Air Capillary Refill : Height, Weight, BMI Height: 5'10.00" Weight: 200lbs. 0.0oz. [id number]; 34.00 BMI Method:Estimated General Appearance: No Apparent Distress, WD/WN Neck: Normal Inspection, Supple Respiratory: Lungs Clear, Normal Breath Sounds, No Accessory Muscle Use, No Respiratory Distress Cardiovascular: Regular Rate, Rhythm; No No Edema; No Gallop, No JVD, No Murmur Extremity: No No Pedal Edema (non-pitting) Neurologic/Psychiatric: Alert, Oriented x3 Skin: Normal Color, Warm/Dry Progress/Results/Core Measures Results/Orders Lab Results Laboratory Tests Test 05/26/22 10:40 Range/Units White Blood Count 10.1 4.3-11.0 10^3/uL Red Blood Count 4.70 4.30-5.52 10^6/uL Hemoglobin 13.9 13.3-17.7 g/dL Hematocrit 41 40-54 % Mean Corpuscular Volume 88 80-99 fL Mean Corpuscular Hemoglobin 30 25-34 pg Mean Corpuscular Hemoglobin Concent 34 32-36 g/dL Red Cell Distribution Width 15.2 H 10.0-14.5 % Platelet Count 357 130-400 10^3/uL Mean Platelet Volume 10.4 9.0-12.2 fL Immature Granulocyte % (Auto) 0 % Neutrophils (%) (Auto) 62 42-75 % Lymphocytes (%) (Auto) 28 12-44 % Monocytes (%) (Auto) 7 0-12 % Eosinophils (%) (Auto) 2 0-10 % Basophils (%) (Auto) 1 0-10 % Neutrophils # (Auto) 6.2 1.8-7.8 10^3/uL Lymphocytes # (Auto) 2.9 1.0-4.0 10^3/uL Monocytes # (Auto) 0.8 0.0-1.0 10^3/uL Eosinophils # (Auto) 0.2 0.0-0.3 10^3/uL Basophils # (Auto) 0.1 0.0-0.1 10^3/uL Immature Granulocyte # (Auto) 0.0 0.0-0.1 10^3/uL Prothrombin Time 13.3 12.2-14.7 SEC INR Comment 1.0 0.8-1.4 Activated Partial Thromboplast Time 30 24-35 SEC Sodium Level 135 135-145 MMOL/L Potassium Level 4.6 3.6-5.0 MMOL/L Chloride Level 99 98-107 MMOL/L Carbon Dioxide Level 29 21-32 MMOL/L Anion Gap 7 5-14 MMOL/L Blood Urea Nitrogen 11 7-18 MG/DL Creatinine 0.76 0.60-1.30 MG/DL Estimat Glomerular Filtration Rate 103 BUN/Creatinine Ratio 14 Glucose Level 87 70-105 MG/DL Calcium Level 9.9 8.5-10.1 MG/DL Corrected Calcium 9.9 8.5-10.1 MG/DL Magnesium Level 2.0 1.6-2.4 MG/DL Total Bilirubin 0.3 0.1-1.0 MG/DL Aspartate Amino Transf (AST/SGOT) 27 5-34 U/L Alanine Aminotransferase (ALT/SGPT) 29 0-55 U/L Alkaline Phosphatase 51 40-136 U/L Myoglobin 212.0 H 10.0-92.0 NG/ML Troponin I < 0.028 <0.028 NG/ML Total Protein 7.9 6.4-8.2 GM/DL Albumin 4.0 3.2-4.5 GM/DL My Orders Orders - ANTONELLA JAQUEZ R NEUROCRITICAL CARE PHYSICIAN Cbc With Automated Diff (05/26/22 11:25) Magnesium (05/26/22 11:25) Chest 1 View, Ap/Pa Only (05/26/22 11:25) Comprehensive Metabolic Panel (05/26/22 11:25) Myoglobin Serum (05/26/22 11:25) Protime With Inr (05/26/22 11:25) Partial Thromboplastin Time (05/26/22 11:25) O2 (05/26/22 11:25) Monitor-Rhythm Ecg Trace Only (05/26/22 11:25) Ed Iv/Invasive Line Start (05/26/22 11:25) Troponin I Tiffanie (05/26/22 11:25) Vital Signs/I&O 05/26/22 05/26/22 10:33 12:30 Temp 36.0 Pulse 60 63 Resp 16 16 B/P (MAP) 158/105 (122) 132/93 Pulse Ox 99 98 O2 Delivery Room Air Room Air Blood Pressure Mean: 122 Progress Progress Note : Time: 11:54 Progress Note 1154: Pt is asking to leave because his ride has been here all morning. This provider spoke with him and told him that a cardiac problem cannot be ruled out yet due to labs not yet being resulted. Pt agreed to stay a little longer to wait for the labs. Initial ECG Rhythm: Normal Sinus Initial ECG Intervals: Normal Initial ECG Impression: Normal Initial ECG Comparisson: Unchanged Diagnostic Imaging Diagonstic Imaging: Xray Plain Films/CT/US/NM/MRI: chest Comments Date of Exam:05/26/22 CHEST 1 VIEW, AP/PA ONLY INDICATION: Chest pain. COMPARISON: 01/28/2022. FINDINGS: Lungs clear. No failure, effusion or pneumothorax. IMPRESSION: Negative. Dictated on workstation # [id number] Dict: 05/26/22 1206 Trans: 05/26/22 1207 [id number] Interpreted by: MACY HEMPHILL Electronically signed by: Departure Impression Primary Impression: Chest pain Qualified Codes: R07.89 - Other chest pain Disposition: HOME, SELF-CARE Condition: Stable Departure-Patient Inst. Referrals: KERRY YATES MD (PCP/Family) Primary Care Physician Patient Instructions: Chest Pain, Adult ED Add. Discharge Instructions: Follow up with primary care provider in 3-5 days. Return for any new or concerning symptoms like severe chest pressure/pain, sweating with chest pain, difficulty breathing, chest pain with exertion. All discharge instructions reviewed with patient and/or family. Voiced understanding. ANTONELLA JAQUEZ NEUROCRITICAL CARE PHYSICIAN May 26, 2022 11:40
[2022-05-26 11:41] LABS: BILIRUBIN,TOTAL 0.3 MG/DL (0.1-1.0)
[2022-05-26 11:43] LABS: CREATININE SERUM 0.76 MG/DL (0.60-1.30)
--- NOTE | 2022-05-26 12:08 | Diagnostic Imaging Report ---
INDICATION: Chest pain. COMPARISON: 01/28/2022. FINDINGS: Lungs clear. No failure, effusion or pneumothorax. IMPRESSION: Negative. Dictated by: Dictated on workstation # [id number]
[2022-05-26 12:30] VITALS: BP 132/93
== END 2022-05-26 12:23 | disposition home or self-care (01) ==
LOC: EDUNIT# 10:30 → ER 10:32
DX: R07.89 Other chest pain (principal); E78.00 Pure hypercholesterolemia, unspecified; Z87.891 Personal history of nicotine dependence; Z28.311 Partially vaccinated for COVID-19
CPT/HCPCS: 36415; 71045; 80053; 83735; 83874; 84484; 85025; 85610; 85730; 93005; 93041

== ENCOUNTER → 2022-05-26 | Outpatient (CLI) | payer MEDICARE, MEDICAID | LOC: WOUNDCARE 09:27 | PROVIDERS: ATTEND Family Medicine | DX: L97.222 Non-pressure chronic ulcer of left calf with fat layer exposed (principal); I89.0 Lymphedema, not elsewhere classified; I70.248 Atherosclerosis of native arteries of left leg with ulceration of other part of lower leg; I87.332 Chronic venous hypertension (idiopathic) with ulcer and inflammation of left lower extremity; E66.01 Morbid (severe) obesity due to excess calories; M62.3 Immobility syndrome (paraplegic); M62.81 Muscle weakness (generalized); E44.0 Moderate protein-calorie malnutrition; Z91.199 Patient's noncompliance with other medical treatment and regimen due to unspecified reason; L97.212 Non-pressure chronic ulcer of right calf with fat layer exposed; I96 Gangrene, not elsewhere classified | CPT/HCPCS: 11042; A6234; G0463 ==

== ENCOUNTER → 2022-06-03 | Outpatient (CLI) | payer MEDICARE, MEDICAID | LOC: WOUNDCARE 12:53 | PROVIDERS: ATTEND Family Medicine | DX: I70.242 Atherosclerosis of native arteries of left leg with ulceration of calf (principal); L97.212 Non-pressure chronic ulcer of right calf with fat layer exposed; I89.0 Lymphedema, not elsewhere classified; I87.332 Chronic venous hypertension (idiopathic) with ulcer and inflammation of left lower extremity; E66.01 Morbid (severe) obesity due to excess calories; M62.3 Immobility syndrome (paraplegic); M62.81 Muscle weakness (generalized); E44.0 Moderate protein-calorie malnutrition; I96 Gangrene, not elsewhere classified | CPT/HCPCS: 11042 ==

== ENCOUNTER → 2022-06-09 | Outpatient (CLI) | payer MEDICARE, MEDICAID | LOC: WOUNDCARE 09:26 | PROVIDERS: ATTEND Family Medicine | DX: I89.0 Lymphedema, not elsewhere classified (principal); E66.01 Morbid (severe) obesity due to excess calories; M62.3 Immobility syndrome (paraplegic); M62.81 Muscle weakness (generalized); E44.0 Moderate protein-calorie malnutrition; Z91.199 Patient's noncompliance with other medical treatment and regimen due to unspecified reason; I87.323 Chronic venous hypertension (idiopathic) with inflammation of bilateral lower extremity | CPT/HCPCS: 29581 ==

== ENCOUNTER → 2022-06-16 | Outpatient (CLI) | payer MEDICARE, MEDICAID | LOC: WOUNDCARE 09:31 | PROVIDERS: ATTEND Family Medicine | DX: I89.0 Lymphedema, not elsewhere classified (principal); E66.01 Morbid (severe) obesity due to excess calories; M62.3 Immobility syndrome (paraplegic); M62.81 Muscle weakness (generalized); E44.0 Moderate protein-calorie malnutrition; Z91.199 Patient's noncompliance with other medical treatment and regimen due to unspecified reason; I87.333 Chronic venous hypertension (idiopathic) with ulcer and inflammation of bilateral lower extremity | CPT/HCPCS: 99212 ==

== ENCOUNTER → 2022-07-07 | Outpatient (CLI) | payer MEDICARE, MEDICAID ==
[~2022-07-07] MED LIST changes: +ATOR20TA66 PO; +DICL75TA2 PO; +FENT1PAT9 TD; +FLUO90CA4 PO; +OXYC10TA7 PO; +PREG200C28 PO; +SILV50CR28 TP
== END ==
LOC: CARD 11:21
PROVIDERS: ATTEND Internal Medicine Cardiovascular Disease
DX: I10 Essential (primary) hypertension (principal); I25.10 Atherosclerotic heart disease of native coronary artery without angina pectoris
CPT/HCPCS: 93306

== ENCOUNTER → 2022-07-08 | Outpatient (CLI) | payer MEDICARE, MEDICAID ==
[~2022-07-08] MED LIST changes: +CATHETER FLUSH 10 ML SYR IVP PRN; +REGADENOSON 0.4 MG/5 ML SYR (LEXISCAN) IV ONE
[2022-07-08 09:49] VITALS: BP 133/78
--- NOTE | 2022-07-08 14:10 | Cardiology Stress Test Report ---
Stress Test Report Date of Procedure/Referring: Date of Procedure: Jul 08, 2022 PCP Nash Mitchell MD Admitting Physician Admitting Physician: Attending Physician: Miranda Blanchard MD Indications: HTN Baseline Heart Rate: 51 Baseline Blood Pressure: Blood Pressure Systolic: 133 Blood Pressure Diastolic: 78 Baseline Vitals Vital Signs Date Time Temp Pulse Resp B/P (MAP) Pulse Ox O2 Delivery O2 Flow Rate FiO2 07/08/22 09:49 54 133/78 (96) Baseline EKG: Baseline EKG: NSR Summary After explaining the procedure to the patient, he signed a consent and then brought to the stress nuclear laboratory. Patient received 0.4 mg Lexiscan for stress test, ECG, heart rate and blood pressure were monitored continuously. Resting and stress dose of radio tracer were injected, imaging was acquired and reviewed in short axis, horizontal long axis and vertical long axis views. TID: 1.19 SSS: 2 SDS: 2 EF: 63 1. Patient tolerated Lexiscan well 2. No significant ischemia or infarction on SPECT images 3. Normal left ventricular size, ejection fraction 63% Copy Copies To 1: [facility] [place] [facility] [place] MIRANDA BLANCHARD MD Jul 08, 2022 14:10
== END ==
LOC: CARD 08:30
PROVIDERS: ATTEND Internal Medicine Cardiovascular Disease
DX: I10 Essential (primary) hypertension (principal); I25.10 Atherosclerotic heart disease of native coronary artery without angina pectoris
CPT/HCPCS: 78452; 93017

== ENCOUNTER 2022-07-10 06:38 | Day surgery (SDC) | payer MEDICARE, MEDICAID ==
[2022-07-10] VITALS (10 sets, daily range): BP systolic 119–158; BP diastolic 56–91
[~2022-07-10] VITALS: Ht 170.2 cm; Wt 107.9 kg
[~2022-07-10 06:38] MED LIST changes: -ATOR20TA66 PO; -CATHETER FLUSH 10 ML SYR IVP PRN; -DICL75TA2 PO; -FENT1PAT9 TD; -FLUO90CA4 PO; -OXYC10TA7 PO; -PREG200C28 PO; -REGADENOSON 0.4 MG/5 ML SYR (LEXISCAN) IV ONE; -SILV50CR28 TP
[2022-07-10] MEDS ORDERED: NS IV 1000 ML 1,000 ML IV SCH ×2 (07:15→10:30)
[2022-07-10 07:43] LABS: HEMATOCRIT 38 % (40-54); HEMOGLOBIN 12.6 g/dL (13.3-17.7); MEAN CORPUSCULAR HEMOGLOBIN 30 pg (25-34); MEAN CORPUSCULAR HGB CONC 33 g/dL (32-36); MEAN CORPUSCULAR VOLUME 90 fL (80-99); MEAN PLATELET VOLUME 10.3 fL (9.0-12.2); PLATELET COUNT 261 10^3/uL (130-400); WHITE BLOOD COUNT 11.2 10^3/uL (4.3-11.0)
[2022-07-10 07:55] LABS: INR 0.9 (0.8-1.4)
[2022-07-10 08:03] LABS: ALBUMIN 3.7 GM/DL (3.2-4.5); BILIRUBIN,TOTAL 0.3 MG/DL (0.1-1.0); CALCIUM 9.1 MG/DL (8.5-10.1); CREATININE SERUM 0.69 MG/DL (0.60-1.30); POTASSIUM 4.3 MMOL/L (3.6-5.0); TOTAL PROTEIN 7.5 GM/DL (6.4-8.2)
[2022-07-10] MEDS ORDERED: ATOR20TA66 PO (08:13)
[2022-07-10] MEDS ORDERED: FLUO90CA4 PO (08:13)
[2022-07-10] MEDS ORDERED: PREG200C28 PO (08:13)
[2022-07-10] MEDS ORDERED: OXYC10TA7 PO (08:13)
[2022-07-10] MEDS ORDERED: FENT1PAT9 TD (08:13)
[2022-07-10] MEDS ORDERED: SILV50CR28 TP (08:13)
[2022-07-10] MEDS ORDERED: DICL75TA2 PO (08:13)
--- NOTE | 2022-07-10 08:20 | Diagnostic Imaging Report ---
INDICATION: Peripheral angiogram, possible angioplasty and stent, presurgical planning. EXAMINATION: Chest 07/10/2022. COMPARISON: 05/26/2022 FINDINGS: The heart is prominent. Pulmonary vasculature stable. There is mild bibasilar atelectasis. No infiltrates, effusions or pneumothorax. Postoperative changes noted in the cervical spine. IMPRESSION: 1. Bibasilar atelectasis, otherwise negative chest. Dictated by: Dictated on workstation # [id number]
--- NOTE | 2022-07-10 09:00 | Cardiac Procedure Note-CS/ASA ---
Pre-Procedure Note Pre-Op Procedure Note Date of Available H&P: Jun 30, 2022 Date H&P Reviewed: Jul 10, 2022 Time H&P Reviewed: 08:59 History & Physical: H&P Reviewed, Patient Examed, No changes noted Pre-Operative Diagnosis: Nonhealing foot ulcer Conscious Sedation Pre-Proced Time 08:59 ASA Score 3 For ASA 3 and 4: Consider anesthesia and medical clearance. Also, for patients with a history of failed moderate sedation consider anesthesia. Airway Lungs Heart ASA score ASA 1: a normal healthy patient ASA 2: a patient with a mild systemic disease (mid diabetes, controlled hypertension, obesity ASA 3: a patient with a severe systemic disease that limits activity (angina, COPD, prior Myocardial infarction) ASA 4: a patient with an incapacitating disease that is a constant threat to life (CHF, renal failure) ASA 5: a moribund patient not expected to survive 24 hrs. (ruptured aneurysm) ASA 6: a declared brain- patient whose organs are being harvested. For emergent operations, add the letter E after the classification Mallampati Classification Grade 3 Sedation Plan Analgesia, Amnesia, Plan communicated to team members, Discussed options with patient/fam, Discussed risks with patient/fam The patient is an appropriate candidate to undergo the planned procedure, sedation, and anesthesia. The patient immediately re-assessed prior to indication. MIRANDA BRITO MD Jul 10, 2022 09:00
[2022-07-10] MEDS ORDERED: LIDOCAINE 1% INJ 20 ML VIAL ONE (09:03)
[2022-07-10] MEDS ORDERED: HEParin (CATH LAB) 2,000 ML IV ONE (09:03)
[2022-07-10] MEDS ORDERED: NS IV 1000 ML 1,000 ML ONE (09:03)
[2022-07-10] MEDS ORDERED: MIDAZOLAM 5 MG/5 ML (VERSED) VIAL ONE (09:07)
[2022-07-10] MEDS ORDERED: fentaNYL INJ 100 MCG/2 ML AMP ONE (09:07)
--- NOTE | 2022-07-10 10:21 | Discharge Inst-Post CATH ---
Discharge Inst-CATH/EP Problems Reviewed?: Yes Post Cardiac Cath/EP D/C Inst Follow Up/Plan Appointment with Dr. Blanchard's office in 2 to 4 weeks <b>CARDIAC CATH/EP PROCEDURE DISCHARGE INSTRUCTIONS</b> ACTIVITY * Go Home directly and rest. * Limit activity of the leg (or wrist if it was used) for 7 days including aer obics, swimming, jogging, bicycling, etc. * Restrict stair-climbing for 7 days if possible, if not, climb up with your non-cath leg, then bring together on the same step. * Avoid lifting, pushing, pulling or excessive movement of the affected extremi ty for 7 days. * Customary sexual activity may be resumed after 2 days-use caution not to use a position that strains or causes pain to the affected extremity. * No driving for 24 hours. * NO SMOKING. * Avoid straining for bowel movements for 7 days. * Gentle walking on level ground is allowed. * Returning to work will depend on the type of procedure and the results. Your doctor will discuss this with you. CALL YOUR DOCTOR FOR ANY OF THE FOLLOWING: *If bleeding from the puncture site occurs- Apply gentle pressure to site with clean cloth and call your doctor or EMS. * If a knot or lump forms under the skin, increases in size, or causes pain. * If bruising appears to be worsening or moving further down your leg instead of disappearing. * Temperature above 101 F. CARE OF YOUR GROIN INCISION; * Bruising or purple discoloration of the skin near the puncture site is common. * You may shower only, no bathtub bathing for 5 days. Be careful to avoid slipping as your leg may feel stiff. * If a closure device was used on your femoral artery, please see the attached guide regarding care of the device and your leg. * Leave dressing on FOR 24 hours. CARE OF YOUR WRIST INCISION; * Bruising or purple discoloration of the skin near the puncture site is common. * You may shower. * DO NOT submerge wrist. * Leave dressing on FOR 24 hours. MIRANDA BLANCHARD MD Jul 10, 2022 10:21
--- NOTE | 2022-07-10 10:24 | Peripheral Report ---
Peripheral Report Physician (s)/Frickertron Checker (s) Physician MIRANDA BRITO MD Pre-Procedure Diagnosis Pre-Procedure Diagnosis: Nonhealing foot ulcer Post-Procedure Note Procedure Start Date: Jul 10, 2022 Name of Procedure: Bilateral lower extremities runoff Third order Additional imaging x2 Findings/Procedure Note PROCEDURE NOTE: 61-year-old gentleman with nonhealing foot ulcer, has history of lymphedema, had an abnormal LIZA, scheduled for peripheral angiogram After explaining the procedure to the patient, all pros and cons were explained, all questions were answered. The patient signed the consent and then he was placed on the cardiac catheterization laboratory. The patient was placed on the cardiac catheterization laboratory. Groin was prepped SL fashion local anesthesia was used. Sheath placed in the right femoral artery, runoff to the right lower extremity was done, DSA imaging to the trifurcation was done. Rim catheter was placed at the left common iliac artery and runoff to the left leg was done then Storq wire was advanced and straight catheter down to the popliteal artery. DSA imaging to the trifurcation then DSA imaging to the foot level on the left side was done then the straight catheter was removed. Sheath was removed and Perclose was used as a closure device FINDINGS: Right lower extremity, Right common femoral, right SFA and popliteal arteries are normal Trifurcation and anterior tibial and posterior tibial and peroneal arteries are normal, no obstructive disease Left lower extremity call him Left t common iliac and common femoral arteries are normal Left SFA and popliteal artery are normal Left tibioperoneal trunk, anterior tibial, posterior tibial and peroneal artery are normal down to the foot CONCLUSIONS: 1. No significant obstructive disease in the lower extremities down to the foot bilaterally DISCUSSION AND RECOMMENDATIONS: Foot ulcer is probably due to venous stasis. Managed by primary care physician Anesthesia Type: Conscious Sedation Estimated blood loss (mL): 20 ml Contrast Amount: 28 ml Total Radiation Dose: 211 mGy Post-Procedure Diagnosis Post-operative diagnosis: Nonhealing foot ulcer Peripheral arterial disease Hypertension Hyperlipidemia MIRANDA BRITO MD Jul 10, 2022 10:24
[2022-07-10] MEDS ORDERED: PATIENT MAY USE OWN MEDS, ALL PO SCH (10:30)
== END 2022-07-10 13:55 | disposition home or self-care (01) ==
LOC: CATH 06:38 → CSD 10:26 → CATH 13:55
PROVIDERS: ATTEND Internal Medicine Cardiovascular Disease
DX: I70.249 Atherosclerosis of native arteries of left leg with ulceration of unspecified site (principal); L97.929 Non-pressure chronic ulcer of unspecified part of left lower leg with unspecified severity; I70.239 Atherosclerosis of native arteries of right leg with ulceration of unspecified site; L97.919 Non-pressure chronic ulcer of unspecified part of right lower leg with unspecified severity; I87.2 Venous insufficiency (chronic) (peripheral); I89.0 Lymphedema, not elsewhere classified; I65.23 Occlusion and stenosis of bilateral carotid arteries; Z87.891 Personal history of nicotine dependence
CPT/HCPCS: 36248; 36415; 71045; 75716; 80053; 80061; 85027; 85610; 85730; 87081; 93005

== ENCOUNTER 2022-08-21 12:53 | Emergency (ER) | payer MEDICARE, MEDICAID ==
[~2022-08-21] VITALS: Ht 170 cm; Wt 107.9 kg
[~2022-08-21 12:53] MED LIST changes: +ATOR20TA66 PO; +DICL75TA2 PO; +FENT1PAT9 TD; +FLUO90CA4 PO; +OXYC10TA7 PO; +PREG200C28 PO; +SILV50CR28 TP
--- NOTE | 2022-08-21 13:35 | ED Lower Extremity ---
General Chief Complaint: Lower Extremity Stated Complaint: DISCOLORATION ON LEGS | LT LEG PAIN Nursing Triage Note: pt amb to ft3 with cc of left leg being red and scabby. pt states that he doesnt know how long it has been like that. pt was seen by wound care 2-3 weeks go for wounds on both legs. Source: patient Exam Limitations: clinical condition (Poor historian, forgetful) History of Present Illness Date Seen by Provider: Aug 21, 2022 Time Seen by Provider: 13:18 Initial Comments 62-year-old male presents to the ED with reports of discolored left lower extre mity and a wound. Patient is a poor historian, his gzvgjbjj-fh-tyq is his pharmacy director and she is not here. He was told that he has a new area of concern in the left lower leg. He has a history of chronic wounds to his lower legs due to venous stasis. He had a peripheral angiogram done July 10 which showed normal arteries. He is unsure if he has had DVTs in the past. There is no swelling to his lower extremities. The left lower leg is cooler than the right. Feet are cold bilaterally. Pulses are intact. He also reports mild left testicular pain. Unable to state how long he has had the pain. He states he was told to let his truck loader and unloader know if he developed testicle pain after his peripheral angiogram, the angiogram was 6 weeks ago. He denies fevers, chest pain, shortness of air, abdominal pain. Rxfswdzw-wg-hiq showed up and was able to give more information. She states his legs were swollen, but that has subsided, now his leg appears more red and she was concerned about a new scab/wound on the left lateral leg. Allergies and Home Medications Allergies Coded Allergies: diazepam (Verified Allergy, Unknown, PATIENT TAKES LORAZEPAM AT HOME, 01/28/22) morphine (Verified Allergy, Unknown, TAKES OXYCODONE AT HOME, 01/28/22) Patient Home Medication List Home Medication List Reviewed: Yes Atorvastatin Calcium (Atorvastatin Calcium) 20 Mg Tablet, 20 MG PO, (Reported) Entered as Reported by: RUTH FAITH on 07/10/22 0899 Baclofen (Baclofen) 20 Mg Tablet, 20 MG PO TID PRN for MUSCLE SPASMS Prescribed by: SCOTT KWON on 01/22/16 1407 Diclofenac Sodium (Diclofenac Sodium) 75 Mg Tablet.dr, 75 MG PO, (Reported) Entered as Reported by: RUTH FAITH on 07/10/22812 Fentanyl (Fentanyl Patch 50 MCG) 50 Mcg/Hour Patch.td72, 50 MCG TD Q72H, (Reported) Entered as Reported by: RUTH FAITH on 07/10/22812 Fluoxetine HCl (Fluoxetine HCl) 40 Mg Capsule, 40 MG PO DAILY @ 1400, (Reported) Entered as Reported by: MARK ATKINS on 03/21/15 1634 Fluoxetine HCl (Fluoxetine Dr) 90 Mg Capsule.dr, 40 MG PO, (Reported) Entered as Reported by: RUTH FAITH on 07/10/22812 Furosemide (Furosemide) 40 Mg Tablet, 40 MG PO BID, (Reported) Entered as Reported by: VERÓNICA CHRISTOPHER on 01/28/22 1608 Lorazepam (Lorazepam) 1 Mg Tablet, 0.5 MG PO TID PRN for ANXIETY Prescribed by: SCOTT KWON on 01/22/16 1407 Oxycodone HCl (Oxycodone HCl) 10 Mg Tablet, 10 MG PO, (Reported) Entered as Reported by: RUTH FAITH on 07/10/22812 Pregabalin (Pregabalin) 200 Mg Capsule, 200 MG PO, (Reported) Entered as Reported by: RUTH FAITH on 07/10/22812 Silver Sulfadiazine (Silver Sulfadiazine) 1 % Cream..g., 50 GM TP, (Reported) Entered as Reported by: RUTH FAITH on 07/10/22812 Review of Systems Constitutional: see HPI Past Komzrtd-Ozhmcf-Njptpe Hx Patient Social History Tobacco Use?: No Substance use?: Yes Substance type: Marijuana Alcohol Use?: No Immunizations Up To Date Tetanus Booster (TDap): Unknown PED Vaccines UTD: No First/Initial COVID19 Vaccinat: JJ Second COVID19 Vaccination Robert: JJ Third COVID19 Vaccination Date: JJ Seasonal Allergies Seasonal Allergies: No Past Medical History Surgery/Hospitalization HX: ANXIETY, PAIN, NECK SURGERY 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) Paralysis, Spinal Cord Injury Reproductive Disorders: No Sexually Transmitted Disease: No HIV/AIDS: No Genitourinary: Yes Neurogenic Bladder Gastrointestinal: Yes Gastroesophageal Reflux, Chronic Constipation, Diverticulosis Musculoskeletal: Yes Chronic Back Pain, Fractures, Spasms Endocrine: No Tinnitis Loss of Vision: Denies Hearing Impairment: Denies Cancer: No Psychosocial: Yes Anxiety, Suicide Attempts, Depression Integumentary: No Blood Disorders: No Family Medical History Cardiovascular disease G8 BROTHER Diabetes mellitus 19 FATHER, , Age:85 19 MOTHER, Onset:Unknown Hypertension 19 MOTHER Seizure disorder G8 BROTHER No Pertinent Family Hx Physical Exam Vital Signs Vital Signs - First Documented 08/21/22 13:00 Pulse 74 B/P (MAP) 134/60 (84) Pulse Ox 98 O2 Delivery Room Air Capillary Refill : Height, Weight, BMI Height: 5'10.00" Weight: 200lbs. 0.0oz. [id number]; 37.00 BMI Method:Estimated General Appearance: WD/WN, no apparent distress Neck: supple, normal inspection Cardiovascular: regular rate, rhythm, no edema, no gallop, no JVD, no murmur Respiratory: lungs clear, normal breath sounds, no respiratory distress, no accessory muscle use Legs: left leg other (Redness, healing wound to left lateral leg, cool to touch, pulses intact) Neurologic/Psychiatric: alert, normal mood/affect Skin: normal color (Normal, except as described), warm/dry (Normal temperature, except as described) No swelling to testicles or scrotum, no pain on palpation of left testicle, no pain with manipulation of testicle, no hernias palpated, skin on scrotum is very dry and small area of redness noted to skin of scrotum over left testicle. Progress/Results/Core Measures Results/Orders Vital Signs/I&O 08/21/22 08/21/22 13:00 13:59 Pulse 74 74 B/P (MAP) 134/60 (84) 134/60 Pulse Ox 98 98 O2 Delivery Room Air Room Air Blood Pressure Mean: 84 Progress Progress Note : Progress Note Patient seen and evaluated, resting comfortably bed, no acute distress. Based on exam and symptoms, I considered a venous or arterial US to rule out DVT or arterial occlusion, I deferred due to no swelling of legs, Wells score of 0, pulses palpated, recent normal peripheral angiogram. I do not think that his leg is infected at this time. I offered to prescribe an antibiotic, but to have dythftyw-aj-vth monitor for increase in redness, warmth for a few days and if it gets worse to then start the antibiotic. The clavfoub-iz-dxt stated that she did not want the prescription, but she will continue to monitor his leg. Discharge instructions and return precautions provided. Departure Impression Primary Impression: Skin abnormality Disposition: 01 HOME, SELF-CARE Condition: Stable Departure-Patient Inst. Decision time for Depature: 13:48 Referrals: KERRY YATES MD (PCP/Family) Primary Care Physician Patient Instructions: Cellulitis (Skin Infection), Adult (DC) Add. Discharge Instructions: Your leg does not appear infected. Continue monitoring leg. Follow-up with your primary care provider. Return or see your primary for increased redness, swelling, warmth, fever, abnormal drainage, or any other new, concerning, or worsening symptoms. All discharge instructions reviewed with patient and/or family. Voiced understanding. ANTONELLA JAQUEZ APRN Aug 21, 2022 13:35
[2022-08-21 13:59] VITALS: BP 134/60
== END 2022-08-21 13:59 | disposition home or self-care (01) ==
LOC: EDUNIT# 12:53 → ER 12:56
DX: L85.3 Xerosis cutis (principal); L53.9 Erythematous condition, unspecified
CPT/HCPCS: 99281

== ENCOUNTER → 2022-09-01 | Outpatient (CLI) | payer MEDICARE, MEDICAID | LOC: WOUNDCARE 09:20 | PROVIDERS: ATTEND Family Medicine | DX: I96 Gangrene, not elsewhere classified (principal); L97.212 Non-pressure chronic ulcer of right calf with fat layer exposed; L97.222 Non-pressure chronic ulcer of left calf with fat layer exposed; L03.116 Cellulitis of left lower limb; I89.0 Lymphedema, not elsewhere classified; M62.3 Immobility syndrome (paraplegic); E66.01 Morbid (severe) obesity due to excess calories; E44.0 Moderate protein-calorie malnutrition; Z68.38 Body mass index [BMI] 38.0-38.9, adult | CPT/HCPCS: 11042 ==

== ENCOUNTER → 2022-09-08 | Outpatient (CLI) | payer MEDICARE, MEDICAID | LOC: WOUNDCARE 08:58 | PROVIDERS: ATTEND Family Medicine | DX: L97.212 Non-pressure chronic ulcer of right calf with fat layer exposed (principal); L97.222 Non-pressure chronic ulcer of left calf with fat layer exposed; L03.116 Cellulitis of left lower limb; I89.0 Lymphedema, not elsewhere classified; M62.3 Immobility syndrome (paraplegic); E66.01 Morbid (severe) obesity due to excess calories; E44.0 Moderate protein-calorie malnutrition | CPT/HCPCS: 99212 ==

== ENCOUNTER → 2022-11-05 | Outpatient (CLI) | payer MEDICARE, MEDICAID ==
--- NOTE | 2022-11-05 14:50 | Diagnostic Imaging Report ---
CLINICAL INDICATION: Patient with chronic low back pain. Patient has history of falls. EXAM: MRI of the lumbar spine performed without IV contrast. Sequences include sagittal T2, sagittal T1, sagittal T2 fat-sat, and axial T2. COMPARISONS: MRI of the lumbar spine without contrast dated 06/27/2019. FINDINGS: There is no acute lumbar spine fracture. There is a small amount of Modic type I degenerative signal changes involving the L5-S1 endplate region. There is also small amount of Modic type II degenerative signal changes at the L5-S1 level. There is no significant paraspinal soft tissue abnormality. The visualized portions of the distal thoracic spinal cord, conus medullaris, and cauda equina nerve roots are unremarkable. The conus medullaris tip is seen at the upper L1 vertebral body level. There are small degenerative spurs involving lumbar spine. There is lower lumbar spine facet arthropathy. L1-L2: There is mild to moderate facet arthropathy with slight hypertrophic changes in the left side which are stable. There is no significant central spinal canal or neural foramen narrowing. L1-L2: There is stable grade 1 retrolisthesis of L2 on L3. There is interval progression of a diffuse disk bulge with development of far left lateral disk herniation. There is severe left neural foramen narrowing which has progressed. There is mild to moderate right neural foramen narrowing which has progressed. There is severe bilateral facet arthropathy. There is prominence of the posterior epidural fat. There is moderate central canal stenosis which has progressed. L3-L4: There is moderate bilateral facet arthropathy. There is prominence of posterior epidural fat. There is stable mild bilateral neural foramen narrowing. There is no significant central canal stenosis. There is stable mild disk bulge noted. L4-L5: There is mild diffuse disk bulge. There is development of an annular tear involving the stable sized posterior disk herniation component. There is mild loss of disk space height again seen. There is no significant central canal stenosis. There is no significant neural foramen narrowing. L5-S1: There is a diffuse disk bulge with moderate to severe loss of disk space height endplate irregularity. Chronic Schmorl's node involving the upper aspect of the S1 vertebra seen. There is severe right facet arthropathy and moderate left facet arthropathy again seen. There is no significant central canal stenosis. There is stable and severe right neural foramen narrowing and moderate to severe left neural foramen narrowing. IMPRESSION: 1: There is interval progression of an L2-L3 diffuse disk bulge with development of far left lateral disk herniations. There is now severe left neural foramen narrowing and mild to moderate right neural foramen narrowing which has progressed. There is now moderate central canal stenosis at the L2-L3 level which has progressed. 2: There is interval development of a small annular tear involving the grossly similar size posterior disk herniation at the L4-L5 level. 3: The remainder of the lumbar spine degenerative disease is otherwise not significantly changed in interim. Dictated by: Dictated on workstation # [id number]
== END ==
LOC: RAD 09:30
PROVIDERS: ATTEND Internal Medicine
DX: M51.16 Intervertebral disc disorders with radiculopathy, lumbar region (principal); M48.061 Spinal stenosis, lumbar region without neurogenic claudication; Z91.81 History of falling
CPT/HCPCS: 72148

== ENCOUNTER → 2022-11-20 | Outpatient (CLI) | payer MEDICARE, MEDICAID ==
[~2022-11-20] MED LIST changes: +POTA-330 PO; -POTA-51 PO
--- NOTE | 2022-11-20 11:18 | Diagnostic Imaging Report ---
EXAMINATION: US Lower Extremity Venous Duplex Left. TECHNIQUE: Multiple real-time grayscale images were obtained over the left lower extremity in various projections. Additional spectral analysis and color Doppler duplex images were also obtained. HISTORY: Left lower extremity pain and swelling. COMPARISON: 04/14/2022. FINDINGS: The left common femoral vein, deep femoral vein, superficial femoral vein and popliteal vein are patent with normal griffin scale and doppler appearance. There is normal respiratory variation and augmentation. The visualized calf vessels are patent. IMPRESSION: 1. No DVT of the left lower extremity. Dictated by: Dictated on workstation # [id number]
== END ==
LOC: RAD 09:47
PROVIDERS: ATTEND Family Medicine
DX: I89.0 Lymphedema, not elsewhere classified (principal); L97.222 Non-pressure chronic ulcer of left calf with fat layer exposed

== ENCOUNTER → 2022-11-20 | Outpatient (CLI) | payer MEDICARE, MEDICAID | LOC: WOUNDCARE 08:52 | PROVIDERS: ATTEND Family Medicine | DX: L97.222 Non-pressure chronic ulcer of left calf with fat layer exposed (principal); I89.0 Lymphedema, not elsewhere classified; E66.01 Morbid (severe) obesity due to excess calories; E44.0 Moderate protein-calorie malnutrition; M62.81 Muscle weakness (generalized); L03.116 Cellulitis of left lower limb; Z68.38 Body mass index [BMI] 38.0-38.9, adult | CPT/HCPCS: 11042; 11045; 87070; 87077; 87205 ==

== ENCOUNTER → 2022-11-24 | Outpatient (CLI) | payer MEDICARE, MEDICAID ==
[2022-11-24 15:01] LABS: ALBUMIN 3.9 GM/DL (3.2-4.5); POTASSIUM 4.1 MMOL/L (3.6-5.0)
[2022-11-24 15:03] LABS: CALCIUM 9.2 MG/DL (8.5-10.1)
[2022-11-24 15:04] LABS: TOTAL PROTEIN 7.5 GM/DL (6.4-8.2)
[2022-11-24 15:06] LABS: BILIRUBIN,TOTAL 0.4 MG/DL (0.1-1.0)
[2022-11-24 15:07] LABS: CREATININE SERUM 0.8 MG/DL (0.60-1.30)
== END ==
LOC: RAD 14:18
PROVIDERS: ATTEND Family Medicine
DX: L97.222 Non-pressure chronic ulcer of left calf with fat layer exposed (principal)
CPT/HCPCS: 36415; 80053; 84134

== ENCOUNTER → 2022-11-27 | Outpatient (CLI) | payer MEDICARE, MEDICAID | LOC: WOUNDCARE 09:08 | PROVIDERS: ATTEND Family Medicine | DX: I89.0 Lymphedema, not elsewhere classified (principal); E66.01 Morbid (severe) obesity due to excess calories; E44.0 Moderate protein-calorie malnutrition; M62.81 Muscle weakness (generalized); L97.212 Non-pressure chronic ulcer of right calf with fat layer exposed; L97.222 Non-pressure chronic ulcer of left calf with fat layer exposed; L03.116 Cellulitis of left lower limb; Z68.38 Body mass index [BMI] 38.0-38.9, adult | CPT/HCPCS: 11042; 11045; 29581 ==

== ENCOUNTER → 2022-12-01 | Outpatient (CLI) | payer MEDICARE, MEDICAID | LOC: WOUNDCARE 08:49 | PROVIDERS: ATTEND Family Medicine | DX: S81.801A Unspecified open wound, right lower leg, initial encounter (principal); I89.0 Lymphedema, not elsewhere classified; M19.90 Unspecified osteoarthritis, unspecified site; G62.9 Polyneuropathy, unspecified | CPT/HCPCS: 29581 ==

== ENCOUNTER → 2022-12-07 | Outpatient (CLI) | payer MEDICARE, MEDICAID | LOC: WOUNDCARE 14:59 | PROVIDERS: ATTEND Family Medicine | DX: L97.222 Non-pressure chronic ulcer of left calf with fat layer exposed (principal); I89.0 Lymphedema, not elsewhere classified; E66.01 Morbid (severe) obesity due to excess calories; E44.0 Moderate protein-calorie malnutrition; M62.81 Muscle weakness (generalized); L97.212 Non-pressure chronic ulcer of right calf with fat layer exposed; L03.116 Cellulitis of left lower limb; Z68.38 Body mass index [BMI] 38.0-38.9, adult | CPT/HCPCS: 99212 ==

== ENCOUNTER → 2022-12-14 | Outpatient (CLI) | payer MEDICARE, MEDICAID | LOC: WOUNDCARE 11:01 | PROVIDERS: ATTEND Family Medicine | DX: L97.212 Non-pressure chronic ulcer of right calf with fat layer exposed (principal); L97.222 Non-pressure chronic ulcer of left calf with fat layer exposed; I89.0 Lymphedema, not elsewhere classified; E66.01 Morbid (severe) obesity due to excess calories; E44.0 Moderate protein-calorie malnutrition; E55.9 Vitamin D deficiency, unspecified; L03.116 Cellulitis of left lower limb; Z68.38 Body mass index [BMI] 38.0-38.9, adult | CPT/HCPCS: 99212 ==

== ENCOUNTER 2023-02-07 19:34 | Emergency (ER) | payer MEDICARE, MEDICAID ==
[~2023-02-07] VITALS: Ht 170 cm; Wt 108.0 kg
--- NOTE | 2023-02-07 20:17 | ED Abdominal Pain ---
General Chief Complaint: Abdominal/GI Problems Stated Complaint: BLOOD IN STOOL Nursing Triage Note: REPORTS PASSING BLACK STOOLS X2 TODAY, LEG CRAMPING. Source of Information: Patient Exam Limitations: No Limitations History of Present Illness Date Seen by Provider: Feb 07, 2023 Time Seen by Provider: 20:03 Initial Comments This 62-year-old gentleman presents to the emergency room with complaint of passing black stools for the past 2 days. He also complains of leg cramping. He arrives by private vehicle and is dropped off by his son and [id number]. He has a left lower quadrant abdominal tenderness that is mild in nature. He denies use of any blood thinning medications. Allergies and Home Medications Allergies Coded Allergies: diazepam (Verified Allergy, Unknown, PATIENT TAKES LORAZEPAM AT HOME, 01/28/22) morphine (Verified Allergy, Unknown, TAKES OXYCODONE AT HOME, 01/28/22) Patient Home Medication List Home Medication List Reviewed: Yes Atorvastatin Calcium (Atorvastatin Calcium) 20 Mg Tablet, 20 MG PO, (Reported) Entered as Reported by: RUTH FAITH on 07/10/22812 Baclofen (Baclofen) 20 Mg Tablet, 20 MG PO TID PRN for MUSCLE SPASMS Prescribed by: SCOTT KWON on 01/22/16 1407 Diclofenac Sodium (Diclofenac Sodium) 75 Mg Tablet.dr, 75 MG PO, (Reported) Entered as Reported by: RUTH FAITH on 07/10/22812 Fentanyl (Fentanyl Patch 50 MCG) 50 Mcg/Hour Patch.td72, 50 MCG TD Q72H, (Reported) Entered as Reported by: RUTH FAITH on 07/10/22812 Fluoxetine HCl (Fluoxetine HCl) 40 Mg Capsule, 40 MG PO DAILY @ 1400, (Reported) Entered as Reported by: MARK ATKINS on 03/21/15 1634 Fluoxetine HCl (Fluoxetine Dr) 90 Mg Capsule.dr, 40 MG PO, (Reported) Entered as Reported by: RUTH FAITH on 07/10/22812 Furosemide (Furosemide) 40 Mg Tablet, 40 MG PO BID, (Reported) Entered as Reported by: VERÓNICA CHRISTOPHER on 01/28/22 1608 Lorazepam (Lorazepam) 1 Mg Tablet, 0.5 MG PO TID PRN for ANXIETY Prescribed by: SCOTT KWON on 01/22/16 1407 Oxycodone HCl (Oxycodone HCl) 10 Mg Tablet, 10 MG PO, (Reported) Entered as Reported by: RUTH FAITH on 07/10/22812 Pregabalin (Pregabalin) 200 Mg Capsule, 200 MG PO, (Reported) Entered as Reported by: RUTH FAITH on 07/10/22812 Silver Sulfadiazine (Silver Sulfadiazine) 1 % Cream..g., 50 GM TP, (Reported) Entered as Reported by: RUTH FAITH on 07/10/22812 Review of Systems Review of Systems Constitutional: no symptoms reported EENTM: No Symptoms Reported Respiratory: No Symptoms Reported Cardiovascular: No Symptoms Reported Gastrointestinal: See HPI Genitourinary: No Symptoms Reported Musculoskeletal: see HPI Skin: no symptoms reported Psychiatric/Neurological: See HPI Endocrine: No Symptoms Reported Hematologic/Lymphatic: No Symptoms Reported Past Qmotnem-Jgerox-Epuhff Hx Patient Social History Tobacco Use?: No Substance use?: Yes Substance type: Marijuana Alcohol Use?: No Pt feels they are or have been: No Immunizations Up To Date Tetanus Booster (TDap): Unknown PED Vaccines UTD: No First/Initial COVID19 Vaccinat: JJ Second COVID19 Vaccination Robert: JJ Third COVID19 Vaccination Date: JJ Seasonal Allergies Seasonal Allergies: No Past Medical History Surgery/Hospitalization HX: NECK FX, SURGERY. ANXIETY/DEPRESSION, S.I., VENOUS STASIS, HLD, HTN, PVD, GERD, CONSTIPATION, DIVERTICULOSIS. 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 and contractures of hands) Paralysis, Spinal Cord Injury Reproductive Disorders: No Sexually Transmitted Disease: No HIV/AIDS: No Genitourinary: Yes Neurogenic Bladder Gastrointestinal: Yes Gastroesophageal Reflux, Chronic Constipation, Diverticulosis Musculoskeletal: Yes Chronic Back Pain, Fractures, Spasms Endocrine: No HEENT: Yes Tinnitis Loss of Vision: Denies Hearing Impairment: Denies Cancer: No Psychosocial: Yes Anxiety, Suicide Attempts, Depression Integumentary: No Blood Disorders: No Family Medical History Cardiovascular disease G8 BROTHER Diabetes mellitus 19 FATHER, , Age:85 19 MOTHER, Onset:Unknown Hypertension 19 MOTHER Seizure disorder G8 BROTHER No Pertinent Family Hx Physical Exam Vital Signs Vital Signs - First Documented 02/07/23 19:48 Temp 37.3 Pulse 79 Resp 16 B/P (MAP) 150/95 (113) Pulse Ox 94 O2 Delivery Room Air Capillary Refill : Less Than 3 Seconds Height/Weight/BMI Height: 5'10.00" Weight: 200lbs. 0.0oz. 90.398192es; 37.00 BMI Method:Estimated General Appearance: WD/WN, no apparent distress HEENT: normal ENT inspection Respiratory: lungs clear, normal breath sounds, no respiratory distress Cardiovascular: regular rate, rhythm, no edema, no murmur Gastrointestinal: normal bowel sounds, soft; No distended; tenderness (LLQ, mild) Rectal: normal exam, normal rectal tone, heme negative stool; No hemorrhoids, No mass, No tenderness Extremities: non-tender, other (bilateral hand contractures, otherwise normal to inspection) Neurologic/Psychiatric: alert, normal mood/affect, oriented x 3 Skin: normal color, warm/dry Progress/Results/Core Measures Results/Orders Lab Results Laboratory Tests Test 02/07/23 20:11 02/07/23 21:50 Range/Units White Blood Count 14.8 H 4.3-11.0 10^3/uL Red Blood Count 4.72 4.30-5.52 10^6/uL Hemoglobin 14.3 13.3-17.7 g/dL Hematocrit 42 40-54 % Mean Corpuscular Volume 89 80-99 fL Mean Corpuscular Hemoglobin 30 25-34 pg Mean Corpuscular Hemoglobin Concent 34 32-36 g/dL Red Cell Distribution Width 13.2 10.0-14.5 % Platelet Count 284 130-400 10^3/uL Mean Platelet Volume 10.0 9.0-12.2 fL Immature Granulocyte % (Auto) 0 % Neutrophils (%) (Auto) 75 42-75 % Lymphocytes (%) (Auto) 20 12-44 % Monocytes (%) (Auto) 5 0-12 % Eosinophils (%) (Auto) 0 0-10 % Basophils (%) (Auto) 1 0-10 % Neutrophils # (Auto) 11.0 H 1.8-7.8 10^3/uL Lymphocytes # (Auto) 3.0 1.0-4.0 10^3/uL Monocytes # (Auto) 0.7 0.0-1.0 10^3/uL Eosinophils # (Auto) 0.0 0.0-0.3 10^3/uL Basophils # (Auto) 0.1 0.0-0.1 10^3/uL Immature Granulocyte # (Auto) 0.1 0.0-0.1 10^3/uL Prothrombin Time 13.3 12.2-14.7 SEC INR Comment 1.0 0.8-1.4 Activated Partial Thromboplast Time 30 24-35 SEC Sodium Level 135 135-145 MMOL/L Potassium Level 3.4 L 3.6-5.0 MMOL/L Chloride Level 101 98-107 MMOL/L Carbon Dioxide Level 23 21-32 MMOL/L Anion Gap 11 5-14 MMOL/L Blood Urea Nitrogen 12 7-18 MG/DL Creatinine 0.73 0.60-1.30 MG/DL Estimat Glomerular Filtration Rate 104 BUN/Creatinine Ratio 16 Glucose Level 113 H 70-105 MG/DL Calcium Level 9.5 8.5-10.1 MG/DL Corrected Calcium 9.6 8.5-10.1 MG/DL Magnesium Level 2.1 1.6-2.4 MG/DL Total Bilirubin 1.0 0.1-1.0 MG/DL Aspartate Amino Transf (AST/SGOT) 24 5-34 U/L Alanine Aminotransferase (ALT/SGPT) 25 0-55 U/L Alkaline Phosphatase 46 40-136 U/L C-Reactive Protein High Sensitivity 0.16 0.00-0.50 MG/DL Total Protein 7.7 6.4-8.2 GM/DL Albumin 3.9 3.2-4.5 GM/DL Urine Color YELLOW Urine Clarity CLEAR Urine pH 6.0 5-9 Urine Specific [place] >=1.030 1.016-1.022 Urine Protein NEGATIVE NEGATIVE Urine Glucose (UA) NEGATIVE NEGATIVE Urine Ketones NEGATIVE NEGATIVE Urine Nitrite NEGATIVE NEGATIVE Urine Bilirubin NEGATIVE NEGATIVE Urine Urobilinogen 0.2 < = 1.0 MG/DL Urine Leukocyte Esterase NEGATIVE NEGATIVE Urine RBC (Auto) 1+ H NEGATIVE Urine RBC 5-10 H /HPF Urine WBC NONE /HPF Urine Crystals NONE /LPF Urine Bacteria NEGATIVE /HPF Urine Casts NONE /LPF Urine Mucus MODERATE H /LPF Urine Culture Indicated NO Micro Results Microbiology 02/07/23 Urine Culture - Final, Complete NO GROWTH My Orders Orders - JOSE LUIS BERNAL MD Ed Iv/Invasive Line Start (02/07/23 20:03) Cbc With Automated Diff (02/07/23 20:03) Comprehensive Metabolic Panel (02/07/23 20:03) Protime With Inr (02/07/23 20:03) Partial Thromboplastin Time (02/07/23 20:03) Fecal Occult Bedside (02/07/23 20:16) Hs C Reactive Protein (02/07/23 20:17) Magnesium (02/07/23 20:17) Ua Culture If Indicated (02/07/23 20:47) Lactated Ringers 1,000 Ml (Lactated Ring (02/07/23 22:00) Ct Abdomen/Pelvis W (02/07/23 22:47) Iohexol Injection (Omnipaque 350 Mg/Ml 1 (02/07/23 23:45) Received Contrast (Hold Metformin- Contr (02/07/23 23:45) Ns (Ivpb) 100 Ml (Sodium Chloride 0.9% 1 (02/07/23 23:45) Urine Culture (02/08/23 00:43) Medications Given in ED Vital Signs/I&O 02/07/23 02/08/23 19:48 00:54 Temp 37.3 37.2 Pulse 79 63 Resp 16 16 B/P (MAP) 150/95 (113) 132/76 Pulse Ox 94 93 O2 Delivery Room Air Room Air Blood Pressure Mean: 113 Progress Progress Note : Progress Note Labs were obtained, reviewed, and interpreted by me. Hemoccult by digital rectal exam was negative. CBC demonstrated a leukocytosis of 14.8. CMP, CRP, magnesium, and coag panels were all unremarkable. There was microscopic hematuria on urinalysis with no obvious source. Due to patient's complaint of left lower quadrant pain and leukocytosis, CT scan was offered. Patient elected to proceed with CT scan. Images were reviewed by me and interpreted as unremarkable. [employer] report was also reviewed. There were findings of enteritis without any other acute abnormalities. Patient was treated with a liter of LR. He required no other medical treatments while in the ER. See discharge instructions for further discussion. Diagnostic Imaging Diagonstic Imaging: CT Plain Films/CT/US/NM/MRI: abdomen, pelvis Comments NAME: ESCOBAR GARCIA [facility] REC#: [id number] PT STATUS: DEP ER : 1960 PHYSICIAN: JOSE LUIS BERNAL MD ADMIT DATE: 02/07/23/ER Signed Date of Exam:02/07/23 CT ABDOMEN/PELVIS W PROCEDURE: CT abdomen and pelvis with contrast. TECHNIQUE: Multiple contiguous axial images were obtained through the abdomen and pelvis after administration of intravenous contrast. Auto Exposure Controls were utilized during the CT exam to meet ALARA standards for radiation dose reduction. All CT scans use one or more of the following dose optimizing techniques: automated exposure control, MA and/or KvP adjustment based on patient size and exam type or iterative reconstruction. INDICATION: Left lower quadrant pain as well as hematuria and leukocytosis. COMPARISON: CT from 01/30/2022. FINDINGS: The lung bases are clear. The liver and gallbladder are unremarkable. There is no biliary duct dilatation. The pancreas and spleen are unremarkable. No adrenal mass is identified. The kidneys are without calculus or hydronephrosis. The aorta is calcified but nonaneurysmal. There are some occasional fluid-filled small and large bowel loops, perhaps owing to enteritis. There is no obstruction. No free fluid or fluid collection is seen. The appendix is unremarkable. The bladder and prostate are unremarkable. IMPRESSION: There are some mild fluid filled small and large bowel loops, perhaps owing to enteritis. No other significant abnormality is detected. Dictated by: Dictated on workstation # [id number] Dict: 02/08/23 0724 Trans: 02/08/23 1545 [id number] Interpreted by: EBEN MCMAHON MD Electronically signed by: EBEN MCMAHON MD 02/08/23 1545 Departure Impression Primary Impression: Melena Additional Impressions: LLQ abdominal pain Microscopic hematuria Leukocytosis Qualified Codes: D72.829 - Elevated white blood cell count, unspecified Disposition: 01 HOME, SELF-CARE Condition: Stable Departure-Patient Inst. Decision time for Depature: 00:49 Referrals: OLYA REAL DO (PCP) Primary Care Physician [facility] (Family) Primary Care Physician Patient Instructions: Abdominal pain, Blood in Urine (Hematuria), Adult ED Add. Discharge Instructions: Drink plenty of clear liquids to stay well-hydrated. Start with a clear liquid diet and gradually advance your diet with small quantities of bland food as tolerated. You may take Tylenol (acetaminophen) up to 1000 mg every 6 hours as needed for pain. Follow-up with your primary care provider soon as possible. Discussed the appearance of blood in your stools and the small amount of blood that was in your urine. If you have not had a colonoscopy in recent years, you should disc uss obtaining one with your primary care provider. You should also have your urine checked again for blood because you had a small amount of blood in your urine in the emergency room. Blood in the urine could indicate a serious health problem such as kidney stones, inflammation of the bladder or kidneys, infections, cancer, etc. If the blood does not go away, you need to discuss investigating other potential causes with your doctor. A urine culture was obtained in the ER and should be available after 48 hours. Return to the ER if you have worsening of symptoms despite following these instructions. All discharge instructions reviewed with patient and/or family. Voiced understanding. Copy Copies To 1: OLYA REAL JOSHUA T MD Feb 07, 2023 20:17
[2023-02-07 20:34] LABS: BASOPHILS # (AUTO) 0.1 10^3/uL (0.0-0.1); BASOPHILS % (AUTO) 1 % (0-10); EOSINOPHILS % (AUTO) 0 % (0-10); HEMATOCRIT 42 % (40-54); HEMOGLOBIN 14.3 g/dL (13.3-17.7); LYMPHOCYTES % (AUTO) 20 % (12-44); MEAN CORPUSCULAR HEMOGLOBIN 30 pg (25-34); MEAN CORPUSCULAR HGB CONC 34 g/dL (32-36); MEAN CORPUSCULAR VOLUME 89 fL (80-99); MONOCYTES # (AUTO) 0.7 10^3/uL (0.0-1.0); MONOCYTES % (AUTO) 5 % (0-12); NEUTROPHILS % (AUTO) 75 % (42-75); PLATELET COUNT 284 10^3/uL (130-400); WHITE BLOOD COUNT 14.8 10^3/uL (4.3-11.0)
[2023-02-07 20:50] LABS: ALBUMIN 3.9 GM/DL (3.2-4.5); CALCIUM 9.5 MG/DL (8.5-10.1); CREATININE SERUM 0.73 MG/DL (0.60-1.30); MAGNESIUM 2.1 MG/DL (1.6-2.4); POTASSIUM 3.4 MMOL/L (3.6-5.0); TOTAL PROTEIN 7.7 GM/DL (6.4-8.2)
[2023-02-07 20:54] LABS: PROTHROMBIN TIME PATIENT 13.3 SEC (12.2-14.7)
[2023-02-07] MEDS ORDERED: LACTATED RINGERS 1,000 ML 1,000 ML IV ONE (22:00)
[2023-02-07 22:09] LABS: BACTERIA,URINE NEGATIVE /HPF; BILIRUBIN,URINE NEGATIVE (NEGATIVE); CLARITY,URINE CLEAR; COLOR,URINE YELLOW; GLUCOSE, URINE (UA) NEGATIVE (NEGATIVE); KETONES,URINE NEGATIVE (NEGATIVE); LEUKOCYTE ESTERASE ,URINE NEGATIVE (NEGATIVE); NITRITE,URINE NEGATIVE (NEGATIVE); PROTEIN,URINE NEGATIVE (NEGATIVE)
[2023-02-07] MEDS ORDERED: IOHEXOL 350 MG/ML 100 ML (OMNIPAQUE 350) VIAL IV ONE (23:45)
[2023-02-07] MEDS ORDERED: NS 100 ML (IVPB) BAG IV ONE (23:45)
[2023-02-07] MEDS ORDERED: HOLD METFORMIN - RECEIVED CONTRAST 20 ML VIAL IV SCH (23:45)
[2023-02-08 00:54] VITALS: BP 132/76
--- NOTE | 2023-02-08 07:38 | Diagnostic Imaging Report ---
PROCEDURE: CT abdomen and pelvis with contrast. TECHNIQUE: Multiple contiguous axial images were obtained through the abdomen and pelvis after administration of intravenous contrast. Auto Exposure Controls were utilized during the CT exam to meet ALARA standards for radiation dose reduction. All CT scans use one or more of the following dose optimizing techniques: automated exposure control, MA and/or KvP adjustment based on patient size and exam type or iterative reconstruction. INDICATION: Left lower quadrant pain as well as hematuria and leukocytosis. COMPARISON: CT from 01/30/2022. FINDINGS: The lung bases are clear. The liver and gallbladder are unremarkable. There is no biliary duct dilatation. The pancreas and spleen are unremarkable. No adrenal mass is identified. The kidneys are without calculus or hydronephrosis. The aorta is calcified but nonaneurysmal. There are some occasional fluid-filled small and large bowel loops, perhaps owing to enteritis. There is no obstruction. No free fluid or fluid collection is seen. The appendix is unremarkable. The bladder and prostate are unremarkable. IMPRESSION: There are some mild fluid filled small and large bowel loops, perhaps owing to enteritis. No other significant abnormality is detected. Dictated by: Dictated on workstation # [id number]
== END 2023-02-08 01:00 | disposition home or self-care (01) ==
LOC: EDUNIT# 19:34 → ER 19:37
DX: K92.1 Melena (principal); R10.32 Left lower quadrant pain; R31.29 Other microscopic hematuria; D72.829 Elevated white blood cell count, unspecified
CPT/HCPCS: 36415; 74177; 80053; 81000; 82274; 83735; 85025; 85610; 85730; 86141; 87088

== ENCOUNTER 2023-03-14 09:16 | Emergency (ER) | payer MEDICARE, MEDICAID ==
[~2023-03-14 09:16] MED LIST changes: +CHOL10007 PO; +FENT1PAT8 TD; +HYDR-700 PO; +LINA290C PO; +LORA-404 PO; +OXC5T PO; -PREG200C28 PO; +PREG200C29 PO; +SIME125C PO
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
[2023-03-14 10:10] LABS: BASOPHILS # (AUTO) 0.1 10^3/uL (0.0-0.1); BASOPHILS % (AUTO) 1 % (0-10); EOSINOPHILS # (AUTO) 0.3 10^3/uL (0.0-0.3); EOSINOPHILS % (AUTO) 2 % (0-10); HEMATOCRIT 41 % (40-54); HEMOGLOBIN 13.2 g/dL (13.3-17.7); LYMPHOCYTES % (AUTO) 39 % (12-44); MEAN CORPUSCULAR HEMOGLOBIN 30 pg (25-34); MEAN CORPUSCULAR HGB CONC 32 g/dL (32-36); MEAN CORPUSCULAR VOLUME 93 fL (80-99); MEAN PLATELET VOLUME 10.1 fL (9.0-12.2); MONOCYTES # (AUTO) 0.7 10^3/uL (0.0-1.0); MONOCYTES % (AUTO) 5 % (0-12); NEUTROPHILS # (AUTO) 6.8 10^3/uL (1.8-7.8); NEUTROPHILS % (AUTO) 53 % (42-75); PLATELET COUNT 393 10^3/uL (130-400); WHITE BLOOD COUNT 12.9 10^3/uL (4.3-11.0)
[2023-03-14 10:14] LABS: POTASSIUM 3.7 MMOL/L (3.6-5.0)
[2023-03-14 10:15] LABS: CALCIUM 9.6 MG/DL (8.5-10.1)
[2023-03-14 10:20] LABS: CREATININE SERUM 0.76 MG/DL (0.60-1.30)
--- NOTE | 2023-03-14 10:48 | Diagnostic Imaging Report ---
EXAMINATION: Pelvis and left hip radiograph EXAM DATE: 03/14/2023 10:38 AM COMPARISON: None available. HISTORY: Left hip pain after fall. TECHNIQUE: Three views FINDINGS: There is no acute fracture, dislocation, or destructive osseous process. Small osteophytes and joint space narrowing are seen at both hips. The soft tissues are normal. IMPRESSION: 1. Minimal degenerative changes of the hips without acute osseous abnormality. Dictated by: Dictated on workstation # [id number]
--- NOTE | 2023-03-14 11:32 | Diagnostic Imaging Report ---
PROCEDURE: CT lumbar spine without contrast. TECHNIQUE: Multiple contiguous axial images were obtained through the lumbar spine without the use of intravenous contrast. Sagittal and coronal reformations were then performed. Auto Exposure Controls were utilized during the CT exam to meet ALARA standards for radiation dose reduction. Date: March 14, 2023. Indication: 62-year-old male, lower extremity pain bilaterally. Chronic low back pain. Comparison: MR lumbar spine November 05, 2022. Findings: There is a mild lumbar dextrocurvature. There is grade 1 retrolisthesis of L2 on L3. There is mild disc height loss at L2-L3. There is severe disc height loss at L5-S1. There are left greater than right facet degenerative changes of L1-L2. There are bilateral facet degenerative changes at L2-L3, L3-L4, and L5-S1. CT is limited for assessment of disc pathology as well as additional non-bony causes of pathology in the spinal canal. There is no identified acute fracture of the lumbar spine or compression deformity. The imaged portions of the sacroiliac joints are unremarkable. There are atherosclerotic calcifications. Impression: 1. No identified acute bony abnormality of the lumbar spine. 2. Multilevel disc and facet degenerative changes of the lumbar spine. Dictated by: Dictated on workstation # [id number]
[2023-03-14 12:51] LABS: BACTERIA,URINE NEGATIVE /HPF; BILIRUBIN,URINE NEGATIVE (NEGATIVE); CLARITY,URINE CLEAR; COLOR,URINE YELLOW; GLUCOSE, URINE (UA) NEGATIVE (NEGATIVE); KETONES,URINE NEGATIVE (NEGATIVE); LEUKOCYTE ESTERASE ,URINE NEGATIVE (NEGATIVE); NITRITE,URINE NEGATIVE (NEGATIVE); PROTEIN,URINE NEGATIVE (NEGATIVE)
[2023-03-14 13:02] VITALS: BP 104/92
== END 2023-03-14 13:03 | disposition home or self-care (01) ==
LOC: EDUNIT# 09:16 → ER 09:17
DX: M54.50 Low back pain, unspecified (principal); G89.29 Other chronic pain; M25.552 Pain in left hip; E66.9 Obesity, unspecified; Z68.34 Body mass index [BMI] 34.0-34.9, adult; W19.XXXA Unspecified fall, initial encounter
CPT/HCPCS: 36415; 72131; 80048; 81000; 83880; 85025